=== PATIENT | female | born 1965 | race Caucasian/White ===

== ENCOUNTER 2017-11-11 14:56 | Emergency (ER) | payer MEDICAID, SELFPAY ==
[2017-11-11 14:58] VITALS: BP 137/85; PULSE 77; RESP 18; TEMP 36.4; O2SAT 99; BMI 27.4
--- NOTE | 2017-11-11 16:43 | RAD_ITS ---
STUDY: X-RAY - RIGHT RADIUS AND ULNA REASON FOR EXAM: Female, 52 years old. Pain. TECHNIQUE: 2 view(s) of the forearm. COMPARISON: None. FINDINGS: There is no demonstrated soft tissue swelling. Normal visualized radius. Normal visualized ulna. There is no demonstrated acute fracture. RAD/Forearm 2 Views IMPRESSION: Normal x-ray examination of the radius and ulna. Electronically Signed: Enoc Posada MD at 17:04 EST , Service support ,
--- NOTE | 2017-11-11 17:38 | ED.VISSUMM ---
- ER Visit Summary Date of Service: 11/11/17 Chief Complaint: Right forearm pain History of Present Illness: The patient is a 52 F who presents with right forearm pain for about a month. 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 She has noticed some aching pain in the anterior aspect of her mid right forearm which is worse with palpation or movement this does occasionally radiate down to the hand and she occasionally gets some numbness and tingling in her fingers as well. No specific fall or injury. Review of systems otherwise negative. Physical Examination: Afebrile vitals unremarkable Heart regular No respiratory distress Patient does have pain on palpation of the anterior mid left forearm she has normal radial and ulnar pulses brisk capillary refill normal sensation active full range of motion normal opposition of the digits normal sensation in the radial ulnar and median nerve distributions Test Results: Forearm x-ray is normal Emergency Department Course and Treatment: Straight examination are consistent with a forearm strain. She was given a prescription for naproxen. She was instructed on supportive care. She understands to return for new or worsening symptoms. She is agreeable to plan was discharged. Treatment Plan: [] Disposition: Discharge Impression: Right forearm strain This note was generated with [employer] dictation software. It may contain incorrect words, spelling, and punctuation that were not noted in review of the chart prior to signing ED Disposition - Plan for ED Patient: Chief Complaint: Upper Extremity Injury Referrals: Care Physician,No Primary [Primary Care Provider] -
--- NOTE | 2017-11-11 17:42 | ED.DCSUM_ITS ---
- ER Visit Summary Date of Service: 11/11/17 Chief Complaint: Right forearm pain History of Present Illness: The patient is a 52 F who presents with right forearm pain for about a month. 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 She has noticed some aching pain in the anterior aspect of her mid right forearm which is worse with palpation or movement this does occasionally radiate down to the hand and she occasionally gets some numbness and tingling in her fingers as well. No specific fall or injury. Review of systems otherwise negative. Physical Examination: Afebrile vitals unremarkable Heart regular No respiratory distress Patient does have pain on palpation of the anterior mid left forearm she has normal radial and ulnar pulses brisk capillary refill normal sensation active full range of motion normal opposition of the digits normal sensation in the radial ulnar and median nerve distributions Test Results: Forearm x-ray is normal Emergency Department Course and Treatment: Straight examination are consistent with a forearm strain. She was given a prescription for naproxen. She was instructed on supportive care. She understands to return for new or worsening symptoms. She is agreeable to plan was discharged. Treatment Plan: [] Disposition: Discharge Impression: Right forearm strain This note was generated with [employer] dictation software. It may contain incorrect words, spelling, and punctuation that were not noted in review of the chart prior to signing ED Disposition - Plan for ED Patient: Chief Complaint: Upper Extremity Injury Referrals: Care Physician,No Primary [Primary Care Provider] -
--- NOTE | 2017-11-11 17:42 | ED.DEP ---
ED Disposition - Plan for ED Patient: Chief Complaint: Upper Extremity Injury Instructions: ED Strain Muscle Ext Prescriptions: Naproxen [Naprosyn] 500 mg PO BID #20 tab Referrals: Care Physician,No Primary [Primary Care Provider] -
[2017-11-11 17:55] VITALS: PULSE 69; RESP 18; O2SAT 96
== END 2017-11-11 17:55 | disposition home or self-care (01) ==
PROVIDERS: Emergency Provider Emergency Medicine
DX: S56.911A Strain of unspecified muscles, fascia and tendons at forearm level, right arm, initial encounter (principal); Z72.0 Tobacco use; X58.XXXA Exposure to other specified factors, initial encounter; Y93.89 Activity, other specified; Y92.89 Other specified places as the place of occurrence of the external cause; Y99.8 Other external cause status
CPT/HCPCS: 73090; 99282

== ENCOUNTER 2017-12-19 10:32 | Emergency (ER) | payer MEDICAID, SELFPAY ==
[2017-12-19 10:34] VITALS: BP 139/51; PULSE 84; RESP 17; TEMP 36.7; O2SAT 97; BMI 30.7
--- NOTE | 2017-12-19 11:25 | CT_ITS ---
STUDY: CT RIGHT UPPER EXTREMITY WITH CONTRAST REASON FOR EXAM: Right arm pain and swelling for one month, question abscess. TECHNIQUE: The patient was scanned in a multi detector CT scanner. High resolution transaxial imaging was performed during intravenous administration of 100 mL of Isovue-300. Sagittal and coronal images were reconstructed. Individualized dose optimization techniques were used for this CT. COMPARISON: Radiographs 11/11/2017. FINDINGS: Normal glenohumeral articulation. Normal glenoid rim, neck and visualized scapula. Normal humeral humerus. Normal visualized lateral clavicle. Normal visualized acromioclavicular articulation. Normal radio-capitellum and ulnotrochlear articulations. Normal radius and ulna. Normal visualized muscles and soft tissue structures. There is no demonstrated focal fluid collection to indicate soft tissue abscess. There is no abnormal contrast enhancement. CT/Extremity Upper WITH Contrast IMPRESSION: Unremarkable CT of the right upper extremity without demonstrated soft tissue abscess. Electronically Signed: Michael Harris MD at 13:30 EDT Tel , Service support ,
[2017-12-19 11:53] LABS: Absolute Lymphocyte Count 1.77 X10^3/ul (0.83-4.51); Absolute Neutrophil Count 5.2 X10^3/uL (2.0-7.7); Basophil# 0.02 X10^3/uL; Basophil% 0.3 % (0-1); Eosinophil# 0.04 X10^3/uL; Eosinophils% 0.5 % (0-5); Lymphocyte # 1.77 X10^3/ul (4.0); Lymphocyte % 23.2 % (19-41); Mean Corp Hgb Conc 33.3 g/gl (32-36); Mean Corpuscular Hgb 31.6 pg (27.0-32.0); Mean Corpuscular Volume 94.8 fL (81-99); Mean Platelet Vol. 8.5 fl (6.2-12.0); Monocyte# 0.62 X10^3/uL; Monocyte% 8.1 % (0-10); Neutrophil # 5.17 X10^3/uL (2.7-7.7); Neutrophil % 67.8 % (47-70); Platelet Count 292 K/mm3 (150-450); RBC Distribution Width CV 13.5 % (11.6-14.6); RBC Distribution Width SD 45.1 fl (35.1-43.9); Red Blood Count 4.43 M/mm3 (4.2-5.4); White Blood Count 7.6 K/mm3 (4.4-11.0)
[2017-12-19 11:57] LABS: POSITIVE COUNT NO; POSITIVE DIFFERENTIAL NO; POSITIVE MORPHOLOGY NO
[2017-12-19 12:03] LABS: Anion Gap 6 (5-15); BUN 10 mg/dL (7-18); BUN/Creat Ratio 13.7 RATIO (10-20); Calcium,Total 9.2 mg/dL (8.5-10.1); Chloride 102 mmol/L (98-107); Creatinine, Serum 0.73 mg/dL (0.55-1.02); EST Glomerular Filtration Rate 89 mL/min (>60); Est Glom Filt Rate - Afr Amer 107 mL/min (>60); Estimated Creatinine Clearance 77.85 ml/min; Glucose 99 mg/dL (74-106); Potassium 3.9 mmol/L (3.5-5.1); Sodium Level 139 mmol/L (136-145)
--- NOTE | 2017-12-19 14:05 | ED.DCSUM_ITS ---
- ER Visit Summary Date of Service: 12/19/17 Chief Complaint: Right elbow pain History of Present Illness: The patient is a 52 F days for the past month she has had pain in her right forearm. She notes that there feels some swelling in the medial aspect of the anterior right elbow. She has not followed up with anybody. 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 Eyes any IV drug use. Physical Examination: Afebrile vital signs are stable Gen: Well-nourished well-developed Head: Normocephalic atraumatic Eyes: Perrl EOMI ENT: TMs clear no rhinorrhea moist mucous membranes Neck: Supple no lymphadenopathy no JVD nontender CVS: Regular rate rhythm no murmurs normal S1-S2 Respiratory: No distress clear to auscultation bilaterally chest nontender Abdomen: Soft nontender nondistended normal bowel sounds no masses Back: Nontender Extremity: There is tenderness to palpation over the medial aspect of the anterior right forearm. There appears to be a fullness. There is no over line erythema. No fluctuance. No breaks in the skin. There is no lymphangitis. Skin: Normal color no rash Neuro: alert orientated ?3 CN II-XII intact normal strength sensation reflexes gait cerebellar Psych: Normal affect normal mood Test Results: CT did not demonstrate any focal abscess or fluid collection. Emergency Department Course and Treatment: We will treat this as a tendinitis. She will follow-up if not improving. Impression: 1. Right elbow tendinitis This note was generated with [employer] dictation software. It may contain incorrect words, spelling, and punctuation that were not noted in review of the chart prior to signing ED Disposition - Plan for ED Patient: Disposition: Home or Assisted Living Chief Complaint: Upper Extremity Injury Instructions: ED Epicondylitis Lateral Elbow Prescriptions: Ibuprofen [Motrin] 800 mg PO TID PRN PRN #20 tab PRN Reason: Pain Referrals: Care Physician,No Primary [Primary Care Provider] - Gurmeet Bartlett DO [STAFF PHYSICIAN] - (Call to arrange follow-up.) Additional Instructions: Although your instructions are for lateral epicondylitis I believe you have more of a medial epicondylitis. Unfortunately I do not have specific instructions for that but is essentially treated the same.
[2017-12-19 14:36] VITALS: BP 131/96; PULSE 63; RESP 17; RESP 18; O2SAT 97
== END 2017-12-19 14:38 | disposition home or self-care (01) ==
PROVIDERS: Emergency Provider Emergency Medicine
DX: M77.9 Enthesopathy, unspecified (principal); Z72.0 Tobacco use
CPT/HCPCS: 73201; 80048; 85025; 99283; Q9967; A4216

== ENCOUNTER → 2018-01-20 06:20 | Outpatient (CLI) | payer MEDICAID, SELFPAY ==
--- NOTE | 2018-01-20 07:00 | MRI_ITS ---
STUDY: MRI RIGHT ELBOW WITHOUT AND WITH CONTRAST REASON FOR EXAM: Female, 52 years old. Pain and swelling of the proximal forearm. TECHNIQUE: Standardized fat and water weighted pulse sequences were obtained in all 3 orthogonal planes prior to and following intravenous administration of 8 mL Gadavist. COMPARISON: CT December 19, 2017. FINDINGS: Normal radio-capitellum articulation. Normal radial collateral ligamentous complex. There is tendinosis with tendon thickening of the common extensor tendon. Normal ulnotrochlear articulation. Normal ulnar collateral ligamentous complex. Normal common flexor tendon. There is small joint effusion. The cubital tunnel is normal, with a normal ulnar nerve. There is tendinosis with thickening of the distal biceps tendon, but without a demonstrated tendon tear, series 6 images 12/24 and 13/24. There is adjacent edema and enhancement, series 10 images 18/36 through 24/36. There are 1.2 and 1.1 cm nonenhancing fluid signal intensity regions consistent with component of ganglion, series 6 image 9/24 and series 7 image 16/30. There is marrow edema with T2 signal hyperintensity and enhancement of the radial tuberosity, series 6 image 14/24. Normal lacertus fibrosis. Normal brachialis musculotendinous insertion. Normal triceps tendon and teno-osseous insertion. Normal olecranon process. The visualized distal humerus, proximal radius, and ulna are normal. The visualized muscles of the distal arm and proximal forearm are normal. There is no dominant mass to correspond to the area of palpable abnormality as noted by the patient on the radial aspect of the proximal forearm. MRI/Upper Ext Joint Only W/WO Cont IMPRESSION: Biceps tendinosis. There is adjacent soft tissue swelling with ganglion cyst. Stress injury of the radial tuberosity. Electronically Signed: David Dukes MD at 8:50 EDT , Service support ,
== END ==
PROVIDERS: Visit Provider Orthopaedic Surgery
DX: R22.31 Localized swelling, mass and lump, right upper limb (principal)
CPT/HCPCS: 73223; A9585

== ENCOUNTER 2018-02-08 08:00 | Outpatient (RCR) | payer MEDICAID, SELFPAY ==
--- NOTE | 2018-01-30 10:38 | HP.OTEVAL ---
Patient's Visit Information JOS READ is a 52 year old F, referred to Occupational Therapy by Gurmeet Bartlett DO, with a diagnosis of right forearm swelling. Date of Evaluation: 01/30/18 Occupational Therapist: Mary Almazan, OTDionne/Eddie, CHT - Subjective Subjective: This 52 year old female was seen for a inital OT eval with dx of right forearm swelling- tendonities of flexors- pt states she has had pain in her right forearm for 4 months at least. Pt states nothing makes her arm feel better and if moved in the wrong way the movement makes pt sick to her stomach. Pt works at [employer] and works 40 hours a week and with need to lift 35-40#. pt is left handed. pt states the pain meds do not help- pt states she does ice her forearm once a day. - Pain right 7 Pain Intensity Range: 5, 9 - ROM Elbow: right -50/110 left 0/145 Forearm: right sup 35 pronation 45 left supination 75 pronation 75 Wrist: right 45/15 left WNL CMC: Right/left WNL - Strength Professor Of Violin: Right 5# left 65# Lateral Pinch: right 2# left 10# Tripod Pinch: right unable left 10# - DASH-Disabilities of Arm, Shoulder& Hand DASH Sum: 115 - Goals Goal:: pt will demo a increase in right senior business broker strength to 40# or greater to increase pts ind. with BADLs and IADLs by D/C. pt will demo a increase in lateral/tripod pinch strength by 4# to increase pts ind. with BADLs and IADLS by D/C Goal:: PT will demo a increase in right elbow flex/ext equal to left to increase pts ind. with ADLs and IADLS by d/c. pt will demo a increase in right forearm SUP/PRonation to WNL to increase pts ind. with IADL tasks as turing a singletary by d/c Goal:: pt will report pain no greater than 2/10 with performance of BADLS and IADLs by d/c - Rehabilitation General Assessment: Pt demo with limited right forearm ROM, limited right elbow ROM and pain pain. pt demo with touch tender throughout the right volar forearm. pts symptoms are consistent with biceps/ flexor tendonitis-PT would benefit from further skilled OTR/L, CHT services 2x week for 6 weeks to decrease pts pain and increase pts ROM and progress to PRE to return pt to PLOF. If pt does not improve after 4 weeks pt will reurn to for further assesment. Rehabilitation Potential: Good - Anticipated Interventions Anticipated Interventions: A/AAROM/PROM, Strengthening, Edema Control, Triggerpoint Release, Desensitization, Modalities, Orthoses, Ergonomic Education - Visit Plan Frequency: 2x /Week Duration: 6 Weeks General Plan: 2x week for 6 weeks Therapy will initiate Modalities as US, Ice and work into ROM- and PRE- pt was instructed in ICe for 15 min 3x a day- pt given instructions on getting a arm sleeve to wear during the day. Ice 3 x a day- pt will be instructed in work ergo to adj. her occupations to limit flexor stress. TEXT: Thank you for the opportunity to evaluate your patient. For Medicare and Medicare HMO plans, please review the plan of care and approve it. It will need to be FAXED BACK to us at [phone] for Medicare purposes. Please let me know if there are questions or concerns regarding this plan of care. Physician Signature: Date:
--- NOTE | 2018-03-07 13:02 | HP.OT.NRP ---
HP - Discharge Summary - Patient Information JOS READ was seen in my office for initial evaluation on 01/30/18. The following Plan of Care was established for this patient: Initial Frequency: 2x /Week Initial Duration: 6 Weeks Plan: cont heat and ice , stretching as tolerated - Anticipated Interventions Anticipated Interventions: A/AAROM/PROM, Strengthening, Edema Control, Triggerpoint Release, Desensitization, Modalities, Orthoses, Ergonomic Education This patient was last seen in our office 12/29/17. Pertinent comments regarding their Occupational therapy will appear below: pt was seen for 4 visits- therapy attempted use of modalities to decrease pts pain- pt was painful with light stretch and palpation of volar and dorsal sides of right forearm- pt was to return to for further testing- pt has not returned at this time and is now D/C At this point I will be discontinuing this patient from occupational therapy. I would be happy to see this patient again in the future if found appropriate by the physician. Thank you! Mary Almazan, OTR/L, CHT
== END 2018-02-08 19:00 | disposition home or self-care (01) ==
LOC: OT 08:00
PROVIDERS: Visit Provider Orthopaedic Surgery
DX: M79.89 Other specified soft tissue disorders (principal); M65.831 Other synovitis and tenosynovitis, right forearm
CPT/HCPCS: 97035; 97110; 97166; 97760

== ENCOUNTER 2018-03-02 14:49 | Emergency (ER) | payer MEDICAID, SELFPAY ==
--- NOTE | 2018-03-02 14:49 | DT_ITS ---
This patient was seen during an EMR downtime February 27, 2018 - March 06, 2018. This patient may have a combination of paper and electronic documentation or all paper documentation. All documentation is viewable within the e-chart portion of [employer] for each patient visit.
--- NOTE | 2018-03-02 15:29 | CT_ITS ---
STUDY: CT ABDOMEN AND PELVIS WITHOUT CONTRAST REASON FOR EXAM: Female, 52 years old. Left flank pain. RADIATION DOSAGE (If Supplied By Facility): CTDIvol = ( 14.35 ) mGy, DLP = ( 682.57 ) mGycm TECHNIQUE: Transaxial images were obtained from the dome of the diaphragm to the symphysis pubis without oral contrast, and without intravenous contrast. Sagittal and coronal images were reconstructed. Individualized dose optimization techniques were used for this CT. COMPARISON: None. FINDINGS: The visualized lung bases are unremarkable. The visualized portions of the heart are within normal limits. Hepatomegaly. Normal gallbladder and extrahepatic biliary system. Normal spleen. Normal pancreas. Normal bilateral adrenal glands. Normal right kidney. Normal left kidney. Normal visualized stomach. Normal small intestine. Normal colon. The appendix is visualized and appears normal. Normal abdominal aorta. Normal inferior vena cava. Normal retroperitoneum. Normal urinary bladder. Normal abdominal wall. There are diffuse degenerative changes of the visualized lumbar spine. CT/Abdomen/Pelvis without Cont IMPRESSION: No evidence of acute intestinal pathology or acute obstructive uropathy. Hepatomegaly. Electronically Signed: Romeo Michael MD at 6:49 EDT Tel , Service support ,
[2018-03-04 12:15] LABS: Bacteria 0 SEEN /hpf (None Seen); Color, Urine Yellow (Yellow); Glucose, Dipstick NEGATIVE (Normal); Mucous, Urine 0 SEEN /hpf (<or=2+); Urine Bilirubin Dipstick Negative (Negative); Urine Clarity Sl Cldy (Clear); White Blood Cells 0 SEEN /hpf (0-5)
[2018-03-04 12:16] LABS: Ketone-Dipstick Negative (Negative); Leukocyte Esterase-Dipstick Negative /ul (Negative); Nitrite-Dipstick Negative (Negative); Occult Blood-Urine 10 /ul (Negative); Protein-Dipstick Negative (Negative); Red Blood Cells-Urine 0-5 SEEN /hpf (0-5); Squamous Epithelial Cells - UA 10-25 SEEN /hpf (5-10); Urine Urobilinogen Normal (Normal)
[2018-03-05 13:56] LABS: Basophil% 0.1 % (0-1); Eosinophils% 0.6 % (0-5); Hematocrit 40.3 % (37-47); Hemoglobin 13.5 g/dl (12.0-15.0); Lymphocyte % 22.3 % (19-41); Mean Corp Hgb Conc 33.5 g/gl (32-36); Mean Corpuscular Hgb 32.1 pg (27.0-32.0); Mean Corpuscular Volume 95.7 fL (81-99); Mean Platelet Vol. 8.8 fl (6.2-12.0); Monocyte% 4.1 % (0-10); Neutrophil % 72.8 % (47-70); POSITIVE COUNT NO; POSITIVE DIFFERENTIAL NO; POSITIVE MORPHOLOGY NO; Platelet Count 251 K/mm3 (150-450); RBC Distribution Width CV 12.6 % (11.6-14.6); RBC Distribution Width SD 43.5 fl (35.1-43.9); Red Blood Count 4.21 M/mm3 (4.2-5.4); White Blood Count 8.1 K/mm3 (4.4-11.0)
[2018-03-05 13:57] LABS: Absolute Neutrophil Count 5.9 X10^3/uL (2.0-7.7); Basophil# 0.01 X10^3/uL; Eosinophil# 0.05 X10^3/uL; Monocyte# 0.33 X10^3/uL; Neutrophil # 5.87 X10^3/uL (2.7-7.7)
[2018-03-05 16:30] LABS: Anion Gap 5 (5-15); BUN 11 mg/dL (7-18); BUN/Creat Ratio 16.2 RATIO (10-20); Chloride 108 mmol/L (98-107); Creatinine, Serum 0.68 mg/dL (0.55-1.02); EST Glomerular Filtration Rate 97 mL/min (>60); Est Glom Filt Rate - Afr Amer 118 mL/min (>60); Glucose 102 mg/dL (74-106); Potassium 4.1 mmol/L (3.5-5.1); Sodium Level 143 mmol/L (136-145)
== END 2018-03-02 16:43 | disposition home or self-care (01) ==
PROVIDERS: Emergency Provider Emergency Medicine
DX: R10.9 Unspecified abdominal pain (principal); Z87.442 Personal history of urinary calculi
CPT/HCPCS: 74176; 80048; 81001; 85025; 96361; 96374; 96375; 99283; J7030; A4216; J2405

== ENCOUNTER 2018-03-30 06:35 | Emergency (ER) | payer MEDICAID, SELFPAY ==
[2018-03-30 06:35] VITALS: BP 146/80; PULSE 89; RESP 18; TEMP 36.4; O2SAT 97; BMI 29.2
--- NOTE | 2018-03-30 07:02 | NURSING ---
NO LW OR POA
--- NOTE | 2018-03-30 08:30 | ED.VISSUMM ---
- ER Visit Summary Date of Service: 03/30/18 Chief Complaint: Bilateral forearm pain History of Present Illness: The patient is a 52 F who I saw back in November of this year. I diagnosed her with right forearm tendinitis. She followed up with orthopedic surgery and did occupational therapy as well as had an MRI which demonstrates bicipital tendinitis and a ganglion cyst. She states she was no better and orthopedics (Dr. Bartlett) referred her to [facility]. She states that every time she called the [facility] she did not get anybody therefore she has not made an appointment. 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 Patient states now the left forearm is hurting her. She filled the prescription for tramadol on 03/23. She was taking ibuprofen. No known renal disorders. Physical Examination: Afebrile vital signs are stable Gen: Well-nourished well-developed Head: Normocephalic atraumatic Eyes: Perrl EOMI ENT: TMs clear no rhinorrhea moist mucous membranes Neck: Supple no lymphadenopathy no JVD nontender CVS: Regular rate rhythm no murmurs normal S1-S2 Respiratory: No distress clear to auscultation bilaterally chest nontender Abdomen: Soft nontender nondistended normal bowel sounds no masses Back: Nontender Extremity: Bilateral anterior forearm tenderness to palpation. There is some palpable swelling right proximal forearm consistent with her ganglion cyst. Skin: Normal color no rash Neuro: alert orientated ?3 CN II-XII intact normal strength sensation reflexes gait cerebellar Psych: Normal affect normal mood Test Results: None indicated in the emergency setting Emergency Department Course and Treatment: This is a chronic problem. This is not appearing to be any type of emergent situation. I will write for the patient to have some Celebrex. The patient can continue her tramadol. Patient is encouraged to call the [facility] and schedule an appointment during the regular business hours. Impression: 1. Bilateral forearm tendinitis This note was generated with [employer] dictation software. It may contain incorrect words, spelling, and punctuation that were not noted in review of the chart prior to signing ED Disposition - Plan for ED Patient: Disposition: Home or Assisted Living Chief Complaint: Upper Extremity Injury Instructions: ED Cyst Ganglion Prescriptions: Celecoxib [Celebrex] 200 mg PO DAILY #14 cap Additional Instructions: Please call [facility] to arrange your follow-up.
--- NOTE | 2018-03-30 08:34 | ED.DCSUM_ITS ---
- ER Visit Summary Date of Service: 03/30/18 Chief Complaint: Bilateral forearm pain History of Present Illness: The patient is a 52 F who I saw back in November of this year. I diagnosed her with right forearm tendinitis. She followed up with orthopedic surgery and did occupational therapy as well as had an MRI which demonstrates bicipital tendinitis and a ganglion cyst. She states she was no better and orthopedics (Dr. Bartlett) referred her to [facility]. She states that every time she called the [facility] she did not get anybody therefore she has not made an appointment. 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 Patient states now the left forearm is hurting her. She filled the prescription for tramadol on 03/23. She was taking ibuprofen. No known renal disorders. Physical Examination: Afebrile vital signs are stable Gen: Well-nourished well-developed Head: Normocephalic atraumatic Eyes: Perrl EOMI ENT: TMs clear no rhinorrhea moist mucous membranes Neck: Supple no lymphadenopathy no JVD nontender CVS: Regular rate rhythm no murmurs normal S1-S2 Respiratory: No distress clear to auscultation bilaterally chest nontender Abdomen: Soft nontender nondistended normal bowel sounds no masses Back: Nontender Extremity: Bilateral anterior forearm tenderness to palpation. There is some palpable swelling right proximal forearm consistent with her ganglion cyst. Skin: Normal color no rash Neuro: alert orientated ?3 CN II-XII intact normal strength sensation reflexes gait cerebellar Psych: Normal affect normal mood Test Results: None indicated in the emergency setting Emergency Department Course and Treatment: This is a chronic problem. This is not appearing to be any type of emergent situation. I will write for the patient to have some Celebrex. The patient can continue her tramadol. Patient is encouraged to call the [facility] and schedule an appointment during the regular business hours. Impression: 1. Bilateral forearm tendinitis This note was generated with [employer] dictation software. It may contain incorrect words, spelling, and punctuation that were not noted in review of the chart prior to signing ED Disposition - Plan for ED Patient: Disposition: Home or Assisted Living Chief Complaint: Upper Extremity Injury Instructions: ED Cyst Ganglion Prescriptions: Celecoxib [Celebrex] 200 mg PO DAILY #14 cap Additional Instructions: Please call [facility] to arrange your follow-up.
[2018-03-30 08:42] VITALS: BP 125/77; PULSE 62; RESP 15; O2SAT 98
== END 2018-03-30 08:43 | disposition home or self-care (01) ==
PROVIDERS: Emergency Provider Emergency Medicine
DX: M77.9 Enthesopathy, unspecified (principal); Z79.891 Long term (current) use of opiate analgesic
CPT/HCPCS: 99282

== ENCOUNTER 2018-09-04 19:04 | Emergency (ER) | payer MEDICAID, SELFPAY ==
[2018-09-04 19:05] VITALS: BP 125/75; PULSE 89; RESP 17; TEMP 37.4; O2SAT 94; BMI 27.4
--- NOTE | 2018-09-04 19:48 | EKG12_ITS ---
Test Reason : RF Blood Pressure : / mmHG Vent. Rate : 081 BPM Atrial Rate : 081 BPM P-R Int : 128 ms QRS Dur : 098 ms QT Int : 358 ms P-R-T Axes : 029 020 030 degrees QTc Int : 415 ms Normal sinus rhythm Normal ECG Confirmed by KATHYA VILLEDA MD ([id number]), newspaper or periodical editor JOVANNY CHAMBERLAIN ([id number]) on 09/08/2018 10:46:01 AM Referred By: YUE Confirmed By:KATHYA VILLEDA MD
[2018-09-04 19:51] VITALS: O2SAT 96
[2018-09-04] MEDS: Ipratropium/Albuterol Sulfate 3 ML AMPUL.NEB INHALATION (19:57)
[2018-09-04 20:05] VITALS: PULSE 83; RESP 18
--- NOTE | 2018-09-04 20:05 | CPS ---
pt states nauseated-aero tx stopped
[2018-09-04] MEDS: 0.9% Normal Saline 1,000 ML 150 ML IV (20:08)
[2018-09-04 20:21] LABS: Absolute Lymphocyte Count 1.09 X10^3/ul (0.83-4.51); Absolute Neutrophil Count 3.4 X10^3/uL (2.0-7.7); Basophil# 0.01 X10^3/uL; Basophil% 0.2 % (0-1); Hematocrit 39.5 % (37-47); Hemoglobin 13.1 g/dl (12.0-15.0); Lymphocyte # 1.09 X10^3/ul (4.0); Lymphocyte % 21.8 % (19-41); Mean Corp Hgb Conc 33.2 g/gl (32-36); Mean Corpuscular Hgb 31.3 pg (27.0-32.0); Mean Corpuscular Volume 94.5 fL (81-99); Mean Platelet Vol. 8.5 fl (6.2-12.0); Monocyte# 0.46 X10^3/uL; Monocyte% 9.2 % (0-10); Neutrophil # 3.44 X10^3/uL (2.7-7.7); Neutrophil % 68.6 % (47-70); Platelet Count 167 K/mm3 (150-450); RBC Distribution Width CV 13.6 % (11.6-14.6); RBC Distribution Width SD 46.7 fl (35.1-43.9); Red Blood Count 4.18 M/mm3 (4.2-5.4)
[2018-09-04 20:22] LABS: POSITIVE COUNT NO; POSITIVE DIFFERENTIAL NO; POSITIVE MORPHOLOGY NO
--- NOTE | 2018-09-04 20:25 | RAD_ITS ---
STUDY: X-RAY CHEST REASON FOR EXAM: Female, 53 years old. Cold symptoms. TECHNIQUE: PA and lateral views of the chest. COMPARISON: June 11, 2014 FINDINGS: There are monitoring devices. Lungs are clear and expanded. There is no demonstrated pleural abnormality. Normal size heart. Normal mediastinum and maile. Normal visualized pulmonary arteries. Normal visualized aortic arch and descending thoracic aorta. There are diffuse degenerative changes of the visualized thoracic spine. Normal visualized ribs, clavicles, and shoulders. There is no demonstrated abnormality of the visualized soft tissue structures of the upper abdomen. RAD/Chest PA and Lateral IMPRESSION: Degenerative changes, as described above. No demonstrated acute cardiopulmonary process. Electronically Signed: David Dukes MD at 21:34 EST , Service support ,
[2018-09-04] MEDS: Ondansetron 4 MG/2 ML Vial IV (20:30)
[2018-09-04 20:35] LABS: Anion Gap 8 (5-15); BUN 11 mg/dL (7-18); BUN/Creat Ratio 14.3 RATIO (10-20); Calcium,Total 8.5 mg/dL (8.5-10.1); Chloride 103 mmol/L (98-107); Creatinine, Serum 0.77 mg/dL (0.55-1.02); EST Glomerular Filtration Rate 84 mL/min (>60); Est Glom Filt Rate - Afr Amer 101 mL/min (>60); Estimated Creatinine Clearance 72.96 ml/min; Glucose 118 mg/dL (74-106); Potassium 3.3 mmol/L (3.5-5.1); Sodium Level 136 mmol/L (136-145)
--- NOTE | 2018-09-04 20:38 | ED.DCSUM_ITS ---
- ER Visit Summary Date of Service: 09/04/18 Chief Complaint: [] Use body aches harsh cough mild sore throat History of Present Illness: The patient is a 53 F [] symptoms suddenly consisting primarily of diffuse body aches harsh cough symptoms persist and she came in today does smoke does not have history of COPD NM PE or pneumonia no other complaints bowel bladder habits unremarkable Physical Examination: [] 125/75, 99.6 General, no distress resting comfortably HEENT is generally unremarkable The neck is supple no adenopathy Cardiovascular, regular rate and rhythm Lungs, clear bilateral Abdomen, soft nontender Extremities, no clubbing cyanosis or edema Neurologic, awake alert answering questions appropriately moving all 4 extremities She is in no distress moving all 4 extremities she complains of just diffuse body aches clinically she appears to have URI viral illness possible flu Flu swab returned positive See IV fluids screening labs chest x-ray aerosols Studies are all generally unremarkable see those reports she has received IV fluids feeling better explained her the counts with influenza A we discussed the concept of Tamiflu and the risk profile to that she is deferred that at this time she started on Naprosyn inhalers and she will follow-up with her family doctors next few days Test Results: [] Emergency Department Course and Treatment: [] Treatment Plan: [] Disposition: [] Home stable Impression: [] Influenza A This note was generated with [employer] dictation software. It may contain incorrect words, spelling, and punctuation that were not noted in review of the chart prior to signing ED Disposition - Plan for ED Patient: Chief Complaint: Cold Sx Referrals: Care Physician,No Primary [Primary Care Provider] -
--- NOTE | 2018-09-04 20:43 | ED.RN ---
LAB CALLS WITH CRITICAL RESULT, PATIENT POSITIVE FOR FLU A, DR. MITCHELL MADE AWARE.
[2018-09-04 20:53] LABS: BNP,B-Type NATRIURETIC PEPTIDE 21.2 pg/mL (0-100)
--- NOTE | 2018-09-04 21:29 | ED.DEP ---
ED Disposition - Plan for ED Patient: Chief Complaint: Cold Sx Instructions: ED Flu Prescriptions: Albuterol Inhaler [Ventolin Hfa] 1 - 2 puff INHALATION Q4H PRN PRN #1 inhaler PRN Reason: Wheezing Referrals: Care Physician,No Primary [Primary Care Provider] - Tg Moreno [NON-STAFF] -
[2018-09-04 22:26] VITALS: BP 150/86; PULSE 91; RESP 17; O2SAT 95
--- OUTSIDE RECORDS SUMMARY | 2018-10-22 03:13 | XMS RPT_ITS ---
:1965 Author Organization OHIP Support Name Relationship Address Phone SIDDHARTH MCCALL Unavailable [address] + [place] [address] SPEWY Unavailable [address] + [place] [address] GOWINS, SIDDHARTH Unavailable [address] + [place] [address] SPEWY Unavailable [address] + [place] [address] GOWINS, SIDDHARTH Unavailable [address] + [place] [address] UE Unavailable Unavailable Unavailable GOWINS, SIDDHARTH Unavailable [address] + [place] [address] SPEWY Unavailable [address] + [place] [address] GOWINS, SIDDHARTH Unavailable [address] + [place] [address] SPEWY Unavailable [address] + [place] [address] GOWINS, SIDDHARTH Unavailable [address] + [place] [address] SPEWY Unavailable [address] + [place] [address] GOWINS, SIDDHARTH Unavailable [address] + [place] [address] SPEWY Unavailable [address] + [place] [address] GOWINS, SIDDHARTH Unavailable [address] + [address] [place] [address] SPEWY Unavailable [address] + [place] [address] GOWINS, SIDDHARTH Unavailable [address] + [address] [place] [address] SPEWY Unavailable [address] + [place] [address] GOWINS, SIDDHARTH Unavailable [address] + [address] [place] [address] SPEWY Unavailable [address] [facility] + [place] [address] Care Team Providers Name Role Phone TRINITYREJISHELIAHY (ASSOCIATE TEAM PHYSICIAN) Referring Unavailable SUGAR HERNANDEZ Attending Unavailable Primay Care Physicia, No Primary Care Unavailable Kelly Zhu Attending Unavailable Gurmeet Bartlett Attending Unavailable Primay Care Physicia, No Referring Unavailable Primay Care Physicia, No Primary Care Unavailable Primay Care Physicia, No Primary Care Unavailable Harshad Mcgowan Attending Unavailable ParamayyeKelly hammond Attending Unavailable Kelly Zhu Referring Unavailable Primay Care Physicia, No Primary Care Unavailable Gurmeet Bartlett Attending Unavailable Primay Care Physicia, No Referring Unavailable Primay Care Physicia, No Primary Care Unavailable Gurmeet Bartlett Attending Unavailable Gurmeet Bartlett Referring Unavailable Primay Care Physicia, No Primary Care Unavailable Primay Care Physicia, No Primary Care Unavailable Harshad Mcgowan Attending Unavailable Primay Care Physicia, No Primary Care Unavailable Indra Card Attending Unavailable Gurmeet Bartlett Attending Unavailable Gurmeet Bartlett Referring Unavailable Primay Care Physicia, No Primary Care Unavailable Gurmeet Bartlett Attending Unavailable Primay Care Physicia, No Referring Unavailable Primay Care Physicia, No Primary Care Unavailable PROBLEMS PROBLEMS DATE TYPE CONDITION / CODE ATTENDING STATUS SOURCE 09/12/2018 Active Cough / NA Active [facility] R05(ICD-10) Main [place] Repository 03/24/2018 Unknown R10.9 - Rd Zhu Unspecified [facility] abdominal [facility] R10.9(ICD-10) Repository 03/16/2018 Unknown M79.89 - Other Gurmeet Bartlett Active [facility] specified soft [facility] tissue disorders [facility] / M79.89(ICD-10) Repository 01/20/2018 Unknown R22.31 - Gurmeet Bartlett Active [facility] swelling, mass Hospital and lump, right Repository upper limb / R22.31(ICD-10) PROCEDURES PROCEDURES No Procedure Records FoundRESULTS RESULTS PROGRESS Observed: 10/06/2018 Status: COMPLETED Source: [place] 10:46 AM [facility] [place] REPOSITORY HNO ID: [id number] Author: Sugar Hernandez Service: (none) Author Type: Physician Type: Progress Notes Filed: 10/06/2018 5:23 PM Note Text: Reason for Visit Patient presents with: Established Patient: establish care Jos Mccall is a 53 year old female who presents here today for Above Complaints.. Health Maintenance DTAP,TDAP,TD(1 - Tdap) ONE PNEUMOVAX PRIOR TO AGE 65 PAP EVERY 5 YEARS HPV EVERY 5 YEARS MAMMOGRAM HEPATITIS C SCREENING LIPID SCREEN DIABETES SCREEN COLORECTAL CANCER SCREENING,SEE MODIFIER INFLUENZA(1) HPI Initially patient was concerned about bp but it is good. She is careful with her salt, because her bp was high. Today she notes she could be depressed, she has been feeling low and sad, things have not been the way it should be. Financial issues, Loss of job from surgery of the hand. She is living with her son and that is very hard for her, it has been very tough for her not to have her own place.... Etc. Her appetite is decreased, she is not sleeping too much, her brain constantly goes on. Denies having racing thoughts, no pressured speaking.. She denies having too much energy where she cannot do anything for it. She smokes around half a pack a day of cigs, has always done this. She is ok to take a pneumonia shot today. No problem-specific Assessment AND Plan notes found for this encounter. PAST MEDICAL HISTORY Diagnosis Date - Depression - Heart murmur PAST SURGICAL HISTORY Procedure Laterality Date - TUBAL LIGATION - UPPER ARM/ELBOW SURGERY UNLISTED FAMILY HISTORY Problem Relation Age of Onset - Heart Attack Father at age 60 - Cancer Brother throat - Stroke Maternal Grandmother Social History Substance Use Topics - Smoking status: Current Every Day Smoker - Smokeless tobacco: Never Used Comment: goes thru 2 pack in 4 days - Alcohol use No Comment: quit years ago Past medical history, appointments, medications, allergies reviewed. Pertinent Lab/Diagnostic Studies are reviewed and discussed today Current Outpatient Prescriptions: - Mhjzjrqycstddgt-Wwagdmokw-ZJ (BROMFED DM) 2-30-10 mg/5 mL syrup Review of Systems CONSTITUTIONAL: No fevers, chills night sweats, unintended weight loss CARDIOVASCULAR: No chest pain, dyspnea, palpitations, orthopnea, PND, ankle edema. PULM: No dyspnea, unexplained cough. GI: No dysphagia/odynophagia, problematic reflux, constipation, diarrhea, changes in stool habits, hematochezia, melena. : No new urinary complaints, including dysuria, gross hematuria or pyuria. NEURO: No new balance problems, peripheral weakness/paresthesias or numbness of concern. Physical Exam BP 118/60 (BP Site: Left Arm, BP Position: Sitting, BP Cuff Size: Regular Adult) Pulse 83 Resp 12 Ht 162.6 cm (5' 4) Wt 75.3 kg (166 lb) SpO2 96% BMI 28.49 kg/m? General appearance: Well appearing, alert, in no acute distress, well nourished. Skin: Skin color, texture, turgor normal, no suspicious rashes or lesions Head: Normocephalic, no masses, lesions, tenderness or abnormalities Eyes: Anicteric sclera. Pupils are equally round and reactive to light. Extraocular movements are intact. Lungs: Lungs clear to auscultation. No wheezing, rhonchi, rales Heart: RRR without murmur, gallop, or rubs. Extremities: No deformities, edema, skin discoloration, clubbing or cyanosis. Good capillary refill. ASSESSMENT/PLAN: 1. Moderate episode of recurrent major depressive disorder (HCC) - ICD9: 296.32, ICD10: F33.1 (primary diagnosis) zoloft to be started Discussed SSRI's in detail, their side effects including weight gain in some, sexual side effects, that it needs to build up in their system and usually in the 3rd week they will start feeling the effects. Also discussed that each SSRI may affect differently , might have to try a couple before finding out a perfect fit. - CBC + DIFF - COMP METABOLIC PANEL 2. Tobacco abuse disorder - ICD9: 305.1, ICD10: Z72.0 - Cessation encouraged. - Physiologic and physical aspects of tobacco addiction as well as strategies for quitting were discussed. - Counseling was given focusing on the harmful effects of this addiction especially given the patient's medical condition(s) which will be worsened because of the chemicals in tobacco. 3. Breast cancer screening by mammogram - ICD9: V76.12, ICD10: Z12.31 - Follow up for annual exam in one year. - ARMANDO SCREENING 4. Lipid screening - ICD9: V77.91, ICD10: Z13.220 - LIPID PANEL BASIC SUGAR HERNANDEZ MD CNOV Observed: 10/06/2018 Status: COMPLETED Source: [place] 10:00 AM [facility] REPOSITORY Office Visit ([facility]) JOS MCCALL ([id number]) 1965 F [facility] Date Time Provider Department 10/06/18 10:00 AM SUGAR HERNANDEZ [facility] During your visit today, we recorded the following information about you: Pulse Respiration Blood pressure Weight 83/minute 12/minute 118/60 75.3 kg Height 1.626 m SUGAR HERNANDEZ MD 10/06/2018 5:23 PM Signed Reason for Visit Patient presents with: Established Patient: [facility] care Jos Mccall is a 53 year old female who presents here today for Above Complaints.. Health Maintenance DTAP,TDAP,TD(1 - Tdap) ONE PNEUMOVAX PRIOR TO AGE 65 PAP EVERY 5 YEARS HPV EVERY 5 YEARS MAMMOGRAM HEPATITIS C SCREENING LIPID SCREEN DIABETES SCREEN COLORECTAL CANCER SCREENING,SEE MODIFIER INFLUENZA(1) HPI Initially patient was concerned about bp but it is good. She is careful with her salt, because her bp was high. Today she notes she could be depressed, she has been feeling low and sad, things have not been the way it should be. Financial issues, Loss of job from surgery of the hand. She is living with her son and that is very hard for her, it has been very tough for her not to have her own place.... Etc. Her appetite is decreased, she is not sleeping too much, her brain constantly goes on. Denies having racing thoughts, no pressured speaking.. She denies having too much energy where she cannot do anything for it. She smokes around half a pack a day of cigs, has always done this. She is ok to take a pneumonia shot today. No problem-specific Assessment AND Plan notes found for this encounter. PAST MEDICAL HISTORY Diagnosis Date - Depression - Heart murmur PAST SURGICAL HISTORY Procedure Laterality Date - TUBAL LIGATION - UPPER ARM/ELBOW SURGERY UNLISTED FAMILY HISTORY Problem Relation Age of Onset - Heart Attack Father at age 60 - Cancer Brother throat - Stroke Maternal Grandmother Social History Substance Use Topics - Smoking status: Current Every Day Smoker - Smokeless tobacco: Never Used Comment: goes thru 2 pack in 4 days - Alcohol use No Comment: quit years ago Past medical history, appointments, medications, allergies reviewed. Pertinent Lab/Diagnostic Studies are reviewed and discussed today Current Outpatient Prescriptions: - Vxmfyqivojjzvlt-Avljlaqjf-JS (BROMFED DM) 2-30-10 mg/5 mL syrup Review of Systems CONSTITUTIONAL: No fevers, chills night sweats, unintended weight loss CARDIOVASCULAR: No chest pain, dyspnea, palpitations, orthopnea, PND, ankle edema. PULM: No dyspnea, unexplained cough. GI: No dysphagia/odynophagia, problematic reflux, constipation, diarrhea, changes in stool habits, hematochezia, melena. : No new urinary complaints, including dysuria, gross hematuria or pyuria. NEURO: No new balance problems, peripheral weakness/paresthesias or numbness of concern. Physical Exam BP 118/60 (BP Site: Left Arm, BP Position: Sitting, BP Cuff Size: Regular Adult) Pulse 83 Resp 12 Ht 162.6 cm (5' 4) Wt 75.3 kg (166 lb) SpO2 96% BMI 28.49 kg/m? General appearance: Well appearing, alert, in no acute distress, well nourished. Skin: Skin color, texture, turgor normal, no suspicious rashes or lesions Head: Normocephalic, no masses, lesions, tenderness or abnormalities Eyes: Anicteric sclera. Pupils are equally round and reactive to light. Extraocular movements are intact. Lungs: Lungs clear to auscultation. No wheezing, rhonchi, rales Heart: RRR without murmur, gallop, or rubs. Extremities: No deformities, edema, skin discoloration, clubbing or cyanosis. Good capillary refill. ASSESSMENT/PLAN: 1. Moderate episode of recurrent major depressive disorder (HCC) - ICD9: 296.32, ICD10: F33.1 (primary diagnosis) zoloft to be started Discussed SSRI's in detail, their side effects including weight gain in some, sexual side effects, that it needs to build up in their system and usually in the 3rd week they will start feeling the effects. Also discussed that each SSRI may affect differently , might have to try a couple before finding out a perfect fit. - CBC + DIFF - COMP METABOLIC PANEL 2. Tobacco abuse disorder - ICD9: 305.1, ICD10: Z72.0 - Cessation encouraged. - Physiologic and physical aspects of tobacco addiction as well as strategies for quitting were discussed. - Counseling was given focusing on the harmful effects of this addiction especially given the patient's medical condition(s) which will be worsened because of the chemicals in tobacco. 3. Breast cancer screening by mammogram - ICD9: V76.12, ICD10: Z12.31 - Follow up for annual exam in one year. - ARMANDO SCREENING 4. Lipid screening - ICD9: V77.91, ICD10: Z13.220 - LIPID PANEL BASIC SUGAR HERNANDEZ MD Referring Provider: SELF [200] Allergies As of Date: 10/06/2018 Noted Allergy Reaction ASPIRIN 10/06/2018 14 - Other: See Comments Comments: nose bleeds Date Reviewed: 10/06/2018 Reviewed by: Candy Tomlinson LPN - Fully Assessed Reason for Visit: Established Patient [175] Cmt: establish care Primary Visit Diagnosis:Moderate episode of recurrent major depressive disorder (HCC) [F33.1] Other Visit Diagnoses:Tobacco abuse disorder [Z72.0] Breast cancer screening by mammogram [Z12.31] Lipid screening [Z13.220] Need for vaccination [Z23] Insomnia, unspecified type [G47.00] Order(s):ARMANDO SCREENING [9470633] Order #: [id number] FUTURE CBC + DIFF [SQCBCDIF] Order #: [id number] FUTURE COMP METABOLIC PANEL [SQCMP] Order #: [id number] FUTURE LIPID PANEL BASIC [SQLIPB] Order #: [id number] FUTURE PNEUMOCOCCAL IMMUNIZATION PPSV 23 [08775HEF] Order #: [id number] traZODone (DESYREL) 50 mg tabletTake 1 tablet by mouth at bedtime as needed for Sedation.Disp: 30 tabletRfl: 1 sertraline (ZOLOFT) 50 mg tabletTake 1 tablet by mouth once daily.Disp: 30 tabletRfl: 3 Prescriptions as of 10/06/2018 Sig: TRAZODONE 50 MG TABLET Take 1 tablet by mouth at bed* SERTRALINE 50 MG TABLET Take 1 tablet by mouth once d* BROMPHENIRAMINE-PSEUDOEPHEDRI* Take 5 mL by mouth four times* Medication notes this encounter CUHXSCGGWGKQOOT-[id number]-IH 2 MG-30 MG-10 MG/5 ML SYRUP >> Candy Tomlinson LPN 10/06/2018 10:24 AM >> CANDY TOMLINSON LPN TueOct 06, 2018 10:24 AM completed Problem List As Of Date: 10/06/2018 (None) Prescriptions ordered this encounter Disp Refills Start End TRAZODONE 50 MG TABLET 30 t* 1 10/06/2018 Route: ORAL Sig: Take 1 tablet by mouth at bedtime as needed for Sedation. SERTRALINE 50 MG TABLET 30 t* 3 10/06/2018 Route: ORAL Sig: Take 1 tablet by mouth once daily. Encounter Status:Closed by SUGAR HERNANDEZ MD on 10/06/18 XR CHEST 2V FRONTAL/LAT Observed: 09/12/2018 Status: F Source: [place] 12:07 PM [facility] REPOSITORY * * *Final Report* * * DATE OF EXAM: Sep 12 2018 12:07PM WOX [id number] - XR CHEST 2V FRONTAL/LAT / PROCEDURE REASON: Cough * * * * Physician Interpretation * * * * EXAMINATION: CHEST RADIOGRAPH (2 VIEW FRONTAL and LATERAL) CLINICAL HISTORY: Cough MQ: XC2_5 Comparison: None. RESULT: Lines, tubes, and devices: None. Lungs and pleura: No consolidation. No lung mass. No pleural effusion. Cardiomediastinal silhouette: Normal cardiomediastinal silhouette. Other: The spine shows degenerative changes. IMPRESSION: No acute radiographic abnormality. Build Automation Engineer: JAKOB Transcribe Date/Time: Sep 12 2018 12:10P Dictated by : JACKSON KEY MD This examination was interpreted and the report reviewed and electronically signed by: JACKSON KEY MD on Sep 12 2018 12:11PM EST [id number] PROGRESS Observed: 09/12/2018 Status: COMPLETED Source: [place] 12:01 PM [facility] [place] REPOSITORY HNO ID: [id number] Author: Tri Perales (Rt) Service: (none) Author Type: Cam Maker Type: Progress Notes Filed: 09/12/2018 12:07 PM Note Text: Radiology Service Progress Note PATIENT NAME: Jos Mccall DATE OF SERVICE: September 12, 2018 TIME: 12:01 PM PATIENT IDENTITY VERIFICATION COMPLETED USING TWO (2) METHODS: Patient confirmed name verbally and Date of . PATIENT GENDER DATA: Female. status: : No status: NO. PATIENT RELEVANT IMPLANT DATA REVIEWED: Not Applicable RADIOLOGY DEPARTMENT: General X-ray: Exam(s) Completed: Chest X-Ray PERIPHERAL IV DATA: Not applicable SIGNED BY: RT Angella September 12, 2018 12:01 PM PROGRESS Observed: 09/12/2018 Status: COMPLETED Source: [place] 11:47 AM [facility] REPOSITORY HNO ID: [id number] Author: Stephanie Blake Service: (none) Author Type: Nurse Practitioner Type: Progress Notes Filed: 09/12/2018 12:33 PM Note Text: Subjective HPI Jos Mccall is a 53 year old female who presents with cough and sore throat for the past week. She has had diarrnea for 4 days. She went to ER one week ago and was given an inhaler. No known sick contacts. She is a current every day smoker. Review of Systems Constitutional: Negative. Negative for fever. HENT: Positive for congestion. Negative for ear pain and sore throat. Respiratory: Positive for cough and sputum production. Negative for shortness of breath. Cardiovascular: Negative. Negative for chest pain. Gastrointestinal: Positive for diarrhea and nausea. Neurological: Positive for headaches. BP 128/72 Pulse 64 Temp 36.8 ?C (98.2 ?F) (Tympanic) Resp 18 Wt 74.3 kg (163 lb 12.8 oz) SpO2 96% No past medical history on file. No past surgical history on file. ALLERGIES Patient has no known allergies. MEDICATIONS benzonatate (TESSALON PERLE) 100 mg capsule Take 2 capsules by mouth three times daily as needed. No family history on file. Social History Substance Use Topics - Smoking status: Current Every Day Smoker - Smokeless tobacco: Never Used - Alcohol use Not on file Objective Physical Exam Constitutional: She is well-developed, well-nourished, and in no distress. HENT: Right Ear: Tympanic membrane, external ear and ear canal normal. Left Ear: Tympanic membrane, external ear and ear canal normal. Nose: Nose normal. Mouth/Throat: Uvula is midline, oropharynx is clear and moist and mucous membranes are normal. No posterior oropharyngeal edema or posterior oropharyngeal erythema. Neck: Neck supple. Cardiovascular: Normal rate, regular rhythm and normal heart sounds. Pulmonary/Chest: Effort normal. No tachypnea. She has decreased breath sounds in the right lower field and the left lower field. She has wheezes (scattered). She has no rales. Frequent cough noted Lymphadenopathy: She has no cervical adenopathy. Neurological: She is alert. Skin: Skin is warm and dry. Nursing note and vitals reviewed. ASSESSMENT/PLAN: 1. Cough - ICD9: 786.2, ICD10: R05 - XR CHEST 2V FRONTAL/LAT. My reading: negative. Radiologist IMPRESSION: No acute radiographic abnormality. Dictated by : AJCKSON KEY MD 2. Bronchitis - ICD9: 490, ICD10: J40 - METHYLPREDNISOLONE 4 MG TABLETS IN A DOSE PACK - [id number]-LENOUHGNIBZHEOD-TJ 2 MG-30 MG-10 MG/5 ML SYRUP - GUAIFENESIN ER 600 MG TABLET, EXTENDED RELEASE 12 HR - Follow-up with your PCP in 3-5 days if symptoms have not improved or sooner if symptoms worsen - Discussed red flags and need for immediate medical evaluation if any occur. - Discussed supportive care treatment with fluids, rest and analgesia. - Discussed expected course of illness Stephanie Blake APRN.SHARI CNOV Observed: 09/12/2018 Status: COMPLETED Source: [place] 11:15 AM [facility] REPOSITORY [facility] ([id number]) 1965 F [facility] Date Time Provider Department 09/12/18 11:15 AM STEPHANIE BLAKE (SHARI) [facility] During your visit today, we recorded the following information about you: Temperature Pulse Respiration Blood pressure 98.2 degrees 64/minute 18/minute 128/72 Weight 74.3 kg Stephanie Blake APRN.CNP 09/12/2018 12:33 PM Signed Subjective HPI Jos Mccall is a 53 year old female who presents with cough and sore throat for the past week. She has had diarrnea for 4 days. She went to ER one week ago and was given an inhaler. No known sick contacts. She is a current every day smoker. Review of Systems Constitutional: Negative. Negative for fever. HENT: Positive for congestion. Negative for ear pain and sore throat. Respiratory: Positive for cough and sputum production. Negative for shortness of breath. Cardiovascular: Negative. Negative for chest pain. Gastrointestinal: Positive for diarrhea and nausea. Neurological: Positive for headaches. BP 128/72 Pulse 64 Temp 36.8 ?C (98.2 ?F) (Tympanic) Resp 18 Wt 74.3 kg (163 lb 12.8 oz) SpO2 96% No past medical history on file. No past surgical history on file. ALLERGIES Patient has no known allergies. MEDICATIONS benzonatate (TESSALON PERLE) 100 mg capsule Take 2 capsules by mouth three times daily as needed. No family history on file. Social History Substance Use Topics - Smoking status: Current Every Day Smoker - Smokeless tobacco: Never Used - Alcohol use Not on file Objective Physical Exam Constitutional: She is well-developed, well-nourished, and in no distress. HENT: Right Ear: Tympanic membrane, external ear and ear canal normal. Left Ear: Tympanic membrane, external ear and ear canal normal. Nose: Nose normal. Mouth/Throat: Uvula is midline, oropharynx is clear and moist and mucous membranes are normal. No posterior oropharyngeal edema or posterior oropharyngeal erythema. Neck: Neck supple. Cardiovascular: Normal rate, regular rhythm and normal heart sounds. Pulmonary/Chest: Effort normal. No tachypnea. She has decreased breath sounds in the right lower field and the left lower field. She has wheezes (scattered). She has no rales. Frequent cough noted Lymphadenopathy: She has no cervical adenopathy. Neurological: She is alert. Skin: Skin is warm and dry. Nursing note and vitals reviewed. ASSESSMENT/PLAN: 1. Cough - ICD9: 786.2, ICD10: R05 - XR CHEST 2V FRONTAL/LAT. My reading: negative. Radiologist IMPRESSION: No acute radiographic abnormality. Dictated by : JACKSON KEY MD 2. Bronchitis - ICD9: 490, ICD10: J40 - METHYLPREDNISOLONE 4 MG TABLETS IN A DOSE PACK - [id number] 2 MG-30 MG-10 MG/5 ML SYRUP - GUAIFENESIN ER 600 MG TABLET, EXTENDED RELEASE 12 HR - Follow-up with your PCP in 3-5 days if symptoms have not improved or sooner if symptoms worsen - Discussed red flags and need for immediate medical evaluation if any occur. - Discussed supportive care treatment with fluids, rest and analgesia. - Discussed expected course of illness JOSHUA Wong APRN.CNP 09/12/2018 12:19 PM Signed ASSESSMENT/PLAN: 1. Cough - ICD9: 786.2, ICD10: R05 - XR CHEST 2V FRONTAL/LAT. My reading: negative. Radiologist IMPRESSION: No acute radiographic abnormality. Dictated by : JACKSON KEY MD 2. Bronchitis - ICD9: 490, ICD10: J40 - METHYLPREDNISOLONE 4 MG TABLETS IN A DOSE PACK - [id number] 2 MG-30 MG-10 MG/5 ML SYRUP - GUAIFENESIN ER 600 MG TABLET, EXTENDED RELEASE 12 HR Stephanie Blake APRN.SHARI ACUTE BRONCHITIS: You have acute bronchitis. This means the airway passages in your lungs are inflamed. Bronchitis may be caused by viruses or bacteria. Inhaling cigarette smoke will always make it worse. Exposure to irritating chemicals or second hand smoke as well as allergies can contribute to bronchitis. Repeat episodes of bronchitis may cause lifelong lung problems. Acute bronchitis is usually treated with rest, fluids, cough medicine, and possibly antibiotics or inhaled medicine to open up the small airways. It is very important that you avoid smoke and drink increased amounts of fluids. A cool air vaporizer can help thin bronchial secretions. This makes it easier to cough and clear your chest. If you are a cigarette smoker, consider using nicotine gum or skin patches to help you withdraw. Recovery from bronchitis is often slow, but you should start feeling better after 2-3 days of treatment. Please call your doctor or return here if you have any of the following symptoms: - Increased fever, chills, or chest pain. - Severe shortness of breath or bloody sputum. - Do not improve after 3 days of proper treatment. Referring Provider: SELF [200] Allergies As of Date: 09/12/2018 Noted Allergy Reaction PENICILLINS 09/12/2018 14 - Other: See Comments Comments: Nosebleeds Date Reviewed: 09/12/2018 Reviewed by: Stephanie ([facility]) Hayden - Fully Assessed Reason for Visit: diarrhea, cough and ST [Other] Cmt: x 1 week Primary Visit Diagnosis:Cough [R05] Other Visit Diagnosis:Bronchitis [J40] Order(s):XR CHEST 2V FRONTAL/LAT [[id number]] Order #: [id number] FUTURE methylPREDNISolone (MEDROL, NATALIIA,) 4 mg Dose-PackFollow dosing instructions, take with food.Disp: 1 PackageRfl: 0 Hscamtmnijmowxp-Byihyqijl-DQ (BROMFED DM) 2-30-10 mg/5 mL syrupTake 5 mL by mouth four times daily as needed.Disp: 118 mLRfl: 0 guaiFENesin (MUCINEX) 600 mg 12 hr tabletTake 1 tablet by mouth twice daily for 10 days.Disp: 20 tabletRfl: 0 Prescriptions as of 09/12/2018 Sig: BROMPHENIRAMINE-PSEUDOEPHEDRI* Take 5 mL by mouth four times* GUAIFENESIN ER 600 MG TABLET,* Take 1 tablet by mouth twice * METHYLPREDNISOLONE 4 MG TABLE* Follow dosing instructions, t* Problem List As Of Date: 09/12/2018 (None) Other instructions from your clinician: ASSESSMENT/PLAN: 1. Cough - ICD9: 786.2, ICD10: R05 - XR CHEST 2V FRONTAL/LAT. My reading: negative. Radiologist IMPRESSION: No acute radiographic abnormality. Dictated by : JACKSON KEY MD 2. Bronchitis - ICD9: 490, ICD10: J40 - METHYLPREDNISOLONE 4 MG TABLETS IN A DOSE PACK - ULBLRCBQCTMWNLU-BHSFWRXFZXTPODN-CP 2 MG-30 MG-10 MG/5 ML SYRUP - GUAIFENESIN ER 600 MG TABLET, EXTENDED RELEASE 12 HR Stephanie Praisler-Wood, SENIOR WEB DESIGNER.ASSOCIATE TEAM PHYSICIAN ACUTE BRONCHITIS: You have acute bronchitis. This means the airway passages in your lungs are inflamed. Bronchitis may be caused by viruses or bacteria. Inhaling cigarette smoke will always make it worse. Exposure to irritating chemicals or second hand smoke as well as allergies can contribute to bronchitis. Repeat episodes of bronchitis may cause lifelong lung problems. Acute bronchitis is usually treated with rest, fluids, cough medicine, and possibly antibiotics or inhaled medicine to open up the small airways. It is very important that you avoid smoke and drink increased amounts of fluids. A cool air vaporizer can help thin bronchial secretions. This makes it easier to cough and clear your chest. If you are a cigarette smoker, consider using nicotine gum or skin patches to help you withdraw. Recovery from bronchitis is often slow, but you should start feeling better after 2-3 days of treatment. Please call your doctor or return here if you have any of the following symptoms: - Increased fever, chills, or chest pain. - Severe shortness of breath or bloody sputum. - Do not improve after 3 days of proper treatment. Prescriptions ordered this encounter Disp Refills Start End METHYLPREDNISOLONE 4 MG TABLETS IN A* 1 Pa* 0 09/12/2018 09/18/2018 Sig: Follow dosing instructions, take with food. VJJOVEIKRQWYOSB-KFBIUSKYKITQMIT-GD 2* 118 * 0 09/12/2018 Route: ORAL Sig: Take 5 mL by mouth four times daily as needed. GUAIFENESIN ER 600 MG TABLET, EXTEND* 20 t* 0 09/12/2018 09/22/2018 Route: ORAL Sig: Take 1 tablet by mouth twice daily for 10 days. Medications Discontinued During This Encounter benzonatate (TESSALON PERLE) 100 mg * 30 c* 0 06/24/2018 09/12/2018 Route: ORAL Sig: Take 2 capsules by mouth three times daily as needed. Patient not taking: Reported on 07/26/2018 Disc: Reason for discontinue is not on file. Encounter Status:Closed by STEPHANIE BLAKE on 09/12/18 12 LEAD ELECTROCARDIOGRAM Observed: 09/08/2018 Status: F Source: [place] 10:46 AM [facility] REPOSITORY [facility] Cardiovascular Services [address] [place], [place] [address] [address] 12 Lead EKG 09/04/182002 MR#: [id number] Acct: [id number] Name: JOS MCCALL Rep #: [id number] : 1965 53 From: Kristian Casas MD Attending Dr: Status: DEP ER Ordering Dr: Kelly Zhu MD Date: 09/04/18 Location: ED Sex: F C Admitted: Test Reason : RF Blood Pressure : / mmHG Vent. Rate : 081 BPM Atrial Rate : 081 BPM P-R Int : 128 ms QRS Dur : 098 ms QT Int : 358 ms P-R-T Axes : 029 020 030 degrees QTc Int : 415 ms Normal sinus rhythm Normal ECG Confirmed by CHRISTIANA DUNCAN, KRISTIAN ([id number]), editor in chief newspaper JOVANNY CHAMBERLAIN ([id number]) on 09/08/2018 10:46:01 AM Referred By: SJ Confirmed By:KRISTIAN CASAS MD 09/08/18 1046 Date Kristian Casas MD CC: MD Barbara Zhu; No Primary Care Physician Signed EMERGENCY DEPARTMENT Observed: 09/04/2018 Status: F Source: [place] SUMMARY 11:00 PM [facility] REPOSITORY [facility] Medical Records Department [address] [place] [address] Emergency Department Summary 09/04/182036 MR#: [id number] Acct: [id number] Name: JOS MCCALL Rep #: [id number] : 1965 53 From: Kelly Zhu MD PCP: Care Physician, No Primary Status: DEP ER - ER Visit Summary Date of Service: 09/04/18 Chief Complaint: [] Use body aches harsh cough mild sore throat History of Present Illness: The patient is a 53 F [] symptoms suddenly consisting primarily of diffuse body aches harsh cough symptoms persist and she came in today does smoke does not have history of COPD NE PE or pneumonia no other complaints bowel bladder habits unremarkable Physical Examination: [] 125/75, 99.6 General, no distress resting comfortably HEENT is generally unremarkable The neck is supple no adenopathy Cardiovascular, regular rate and rhythm Lungs, clear bilateral Abdomen, soft nontender Extremities, no clubbing cyanosis or edema Neurologic, awake alert answering questions appropriately moving all 4 extremities She is in no distress moving all 4 extremities she complains of just diffuse body aches clinically she appears to have URI viral illness possible flu Flu swab returned positive See IV fluids screening labs chest x-ray aerosols Studies are all generally unremarkable see those reports she has received IV fluids feeling better explained her the counts with influenza A we discussed the concept of Tamiflu and the risk profile to that she is deferred that at this time she started on Naprosyn inhalers and she will follow-up with her family doctors next few days Test Results: [] Emergency Department Course and Treatment: [] Treatment Plan: [] Disposition: [] Home stable Impression: [] Influenza A This note was generated with ThemBidation software. It may contain incorrect words, spelling, and punctuation that were not noted in review of the chart prior to signing ED Disposition - Plan for ED Patient: Chief Complaint: Cold Sx Referrals: Care Physician,No Primary [Primary Care Provider] - What to do if you have Problems For any increased pain, shortness of breath, bleeding, nausea or vomiting, chest pain, or any unexpected problems, contact your Primary Care Provider. Call [facility] ([phone]) or report to the closest Emergency Room. Call 911 if necessary. 09/04/18 2300 <Electronically signed by Kelly Zhu MD> Date Kelly Zhu MD Cosigner Signature (If Indicated): Date CC: No Primary Care Physician DISCHARGE INSTRUCTION Observed: 09/04/2018 Status: F Source: [place] 9:30 PM [facility] REPOSITORY [facility] Medical Records Department [address] [place] [address] Discharge Instruction 09/04/182128 MR#: [id number] Acct: [id number] Name: JOS MCCALL Rep #: [id number] : 1965 53 From: Kelly Zhu MD PCP: Care Physician, No Primary Status: REG ER ED Disposition - Plan for ED Patient: Chief Complaint: Cold Sx Instructions: ED Flu Prescriptions: Albuterol Inhaler [Ventolin Hfa] 1 - 2 puff INHALATION Q4H PRN PRN #1 inhaler PRN Reason: Wheezing Referrals: Care Physician,No Primary [Primary Care Provider] - Tg Moreno [NON-STAFF] - What to do if you have Problems For any increased pain, shortness of breath, bleeding, nausea or vomiting, chest pain, or any unexpected problems, contact your Primary Care Provider. Call [facility] ([phone]) or report to the closest Emergency Room. Call 911 if necessary. 09/04/182129 <Electronically signed by Kelly Zhu MD> Date Kelly Zhu MD Cosigner Signature (If Indicated): Date CC: No Primary Care Physician CBC W/DIFF, AUTOMATED Collected: 09/04/2018 Status: F Source: [place] 8:08 PM [facility] REPOSITORY TYPE CODE TESTS RESULT OUT OF RANGE REFERENCE UNITS LAB L100.1000 4.4-11.0 K/mm3 Normal WBC 5.0 LAB L100.1200 4.2-5.4 M/mm3 Low RBC 4.18 LAB L100.1300 12.0-15.0 g/dl Normal HGB 13.1 LAB L100.1400 37-47 % Normal HCT 39.5 LAB L100.1500 81-99 fL Normal MCV 94.5 LAB L100.1600 27.0-32.0 pg Normal MCH 31.3 LAB L100.1700 32-36 g/gl Normal MCHC 33.2 LAB L100.1810 11.6-14.6 % Normal RDW CV 13.6 LAB L100.1820 35.1-43.9 fl High RDW SD 46.7 LAB L100.1900 150-450 K/mm3 Normal PLT 167 LAB L100.2000 6.2-12.0 fl Normal MPV 8.5 LAB L100.2100 47-70 % Normal NEUT% 68.6 LAB L100.2200 19-41 % Normal LY% 21.8 LAB L100.2300 0-10 % Normal MONO% 9.2 LAB L100.2400 0-5 % Normal EO% 0.0 LAB L100.2500 0-1 % Normal BASO% 0.2 LAB L100.2550 0.0-0.9 % Normal IM GRAN % 0.200 Result Comment: IG% - Immature Granulocytes (promyelocytes, myelocytes and metamyelocytes) > 1% indicates that a LEFT SHIFT is Present. LAB L100.2620 2.0-7.7 X10 3/uL Normal Absolute Neut 3.4 LAB L100.2720 0.83-4.51 X10 3/ul Normal Absolute Lymph 1.09 Performed By: #### L100.0100 #### [facility] [address] [place], [place], [address] BASIC METABOLIC Collected: 09/04/2018 Status: F Source: [place] PROFILE (BMP) 8:08 PM [facility] REPOSITORY TYPE CODE TESTS RESULT OUT OF RANGE REFERENCE UNITS LAB L501.0100 74-106 mg/dL High GLU 118 Result Comment: Fasting Glucose result from 100 to 125 mg/dL suggests IMPAIRED HOMEOSTASIS per A.D.A. criteria. Please note revised GLUCOSE reference range effective 2017. LAB L501.1000 7-18 mg/dL Normal BUN 11 LAB L501.1100 0.55-1.02 mg/dL Normal CREAT,SERUM 0.77 Result Comment: The validity of the calculated GFR AND GFRAA in patients over 70 years has not been determined. Clinical correlation is essential. LAB L501.1110 >60 mL/min Normal EST GFR 84 Result Comment: Non- GFR Calc LAB L501.1115 >60 mL/min Normal EST GFR - AA 101 Result Comment: GFR Calc LAB L501.1255 ml/min Normal Estimated CRCL 72.96 LAB L501.1300 10-20 RATIO Normal BUN/CRE 14.3 LAB L501.2200 8.5-10 mg/dL Normal .1 CA 8.5 LAB L501.5300 136-14 mmol/L Normal 5 NA 136 LAB L501.5600 3.5-5. mmol/L Low 1 K 3.3 LAB L501.5900 98-107 mmol/L Normal CL 103 LAB L501.6100 21.0-3 mmol/L Normal 2.0 CO2 25.0 LAB L501.6200 5-15 Normal GAP 8 Performed By: #### L500.2500, L501.4010 #### [facility] [address] [facility] [place], [place], [id number] TROPONIN-I Collected: 09/04/2018 Status: F Source: [place] 8:08 PM [facility] REPOSITORY TYPE CODE TESTS RESULT OUT OF RANGE REFERENCE UNITS LAB L501.4010 <0.045 ng/mL Normal < 0.015 TROPONIN-I Result Comment: TROPONIN-I EXPECTED VALUES <0.045 Negative 0.045 - 0.590 Consistent with Cardiac Damage > OR = 0.600 Critical Value Not every elevated troponin is indicative of NE. These values should be used with clinical judgement in examining the patient's clinical picture for diagnosis. To establish a diagnosis of NE versus myocardial injury, there must be a demonstrated rise and/or fall in the troponin values, in addition to ischemic symptoms, EKG changes, new regional wall motion abnormality, and/or angiographical evidence. PLEASE NOTE: REFERENCE RANGES EDITED 18 Performed By: #### L500.2500, L501.4010 #### [facility] [address] [place], [place], [address] BNP,B-TYPE NATRIURETIC Collected: 09/04/2018 Status: F Source: [place] 8:08 PM [facility] REPOSITORY TYPE CODE TESTS RESULT OUT OF RANGE REFERENCE UNITS LAB L503.6620 0-100 pg/mL Normal B-TYPE 21.2 JONATHAN PEP Performed By: #### L503.6620 #### [facility] [address] [facility] [address] Observed: 09/04/2018 Status: F Source: [place] INFLUENZA A+B (RAPID 8:00 PM [facility]) REPOSITORY RESULTS CALLED TO RADHA CARTAGENA ED 09/04/182028 Gurmeet Venegas. REPORT READ BACK BY SAME . FLU A/B Rapid Negative test results should be confirmed by culture. Order Rapid Viral Culture for Influenzae A+B ([id number]) if clinically indicated. Influenza Ag, Direct POSITIVE for the presence of INFLUENZA A Antigen only ORGANISM 1: INFLUENZAE A Performed By: #### M101.0101 #### [facility] [address] [place], [place], [address] CHEST PA AND LATERAL Observed: 09/04/2018 Status: F Source: [place] 7:50 PM [facility] REPOSITORY [facility] Imaging Services [address] [place] [address] Chest PA and Lateral MR#: [id number] Acct: [id number] Name: MELITA MCCALLH Carlos Rep #: [id number] : 1965 F 53 From: David Dukes MD PCP: Care Physician, No Primary Status: REG ER Study: Chest PA and Lateral Date of Exam: 09/04/18 Exam# [id number] Ordering Dr: Kelly Zhu MD STUDY: X-RAY CHEST REASON FOR EXAM: Female, 53 years old. Cold symptoms. TECHNIQUE: PA and lateral views of the chest. COMPARISON: June 11, 2014 FINDINGS: There are monitoring devices. Lungs are clear and expanded. There is no demonstrated pleural abnormality. Normal size heart. Normal mediastinum and maile. Normal visualized pulmonary arteries. Normal visualized aortic arch and descending thoracic aorta. There are diffuse degenerative changes of the visualized thoracic spine. Normal visualized ribs, clavicles, and shoulders. There is no demonstrated abnormality of the visualized soft tissue structures of the upper abdomen. RAD/Chest PA and Lateral IMPRESSION: Degenerative changes, as described above. No demonstrated acute cardiopulmonary process. Electronically Signed: David Dukes MD at 21:34 EST , Service support , CC: MD Barbara Zhu; No Primary Care Physician Build Automation Engineer: Signed PROGRESS Observed: 07/26/2018 Status: COMPLETED Source: [place] 6:28 PM [facility] [place] REPOSITORY HNO ID: [id number] Author: Naveen Truong (Jeremy) Kailyn Service: (none) Author Type: Physician Qa Auditor Type: Progress Notes Filed: 07/26/2018 6:30 PM Note Text: Subjective HPI Patient presents with the chief complaint of a right lower lip infection. States she noticed a blister this morning and she had popped it and had some clear fluid come out of it. Started to get more swollen and painful so she came in for evaluation. She had the same thing about the same time last year and was seen at a different urgent care. She is not sure if it was a cold sore or not. Review of Systems HENT: Infection on right lower lip All other systems reviewed and are negative. No past medical history on file. Current Outpatient Prescriptions: valACYclovir (VALTREX) 500 mg tablet Take 4 tablets by mouth twice daily for 1 day. Disp: 8 tablet Rfl: 0 benzonatate (TESSALON PERLE) 100 mg capsule Take 2 capsules by mouth three times daily as needed. (Patient not taking: Reported on 07/26/2018 ) Disp: 30 capsule Rfl: 0 No current facility-administered medications for this visit. No past surgical history on file. No family history on file. Social History Substance Use Topics - Smoking status: Current Every Day Smoker - Smokeless tobacco: Never Used - Alcohol use Not on file BP 110/70 Pulse 72 Temp 36.6 ?C (97.8 ?F) (Tympanic) Resp 16 Wt 75.6 kg (166 lb 9.6 oz) Objective Physical Exam Constitutional: She is oriented to person, place, and time and well-developed, well-nourished, and in no distress. HENT: Head: Normocephalic and atraumatic. Right Ear: Tympanic membrane, external ear and ear canal normal. Left Ear: Tympanic membrane, external ear and ear canal normal. Nose: Nose normal. Mouth/Throat: Patient has multiple vesicular lesions on her right lower lip consistent with herpetic lesions. Cardiovascular: Normal rate, regular rhythm and normal heart sounds. Pulmonary/Chest: Effort normal and breath sounds normal. Neurological: She is alert and oriented to person, place, and time. Skin: Skin is warm and dry. Psychiatric: Affect and judgment normal. Nursing note and vitals reviewed. ASSESSMENT/PLAN: 1. Recurrent cold sores - ICD9: 054.9, ICD10: B00.1 I will treat with Valtrex 2 g by mouth twice a day for one day. Instructed on the contagious nature of the infection and to avoid small children. Discussed follow-up as needed. Patient agreeable with plan. Naveen Avina PA-C CNOV Observed: 07/26/2018 Status: COMPLETED Source: [place] 6:00 PM [facility] REPOSITORY Office Visit ([facility]) JOS MCCALL ([id number]) 1965 F Date Time Provider Department 07/26/18 6:00 PM NAVEEN AVINA (JEREMY) [facility] During your visit today, we recorded the following information about you: Temperature Pulse Respiration Blood pressure 97.8 degrees 72/minute 16/minute 110/70 Weight 75.6 kg Naveen Avina PA-C 07/26/2018 6:30 PM Signed Subjective HPI Patient presents with the chief complaint of a right lower lip infection. States she noticed a blister this morning and she had popped it and had some clear fluid come out of it. Started to get more swollen and painful so she came in for evaluation. She had the same thing about the same time last year and was seen at a different urgent care. She is not sure if it was a cold sore or not. Review of Systems HENT: Infection on right lower lip All other systems reviewed and are negative. No past medical history on file. Current Outpatient Prescriptions: valACYclovir (VALTREX) 500 mg tablet Take 4 tablets by mouth twice daily for 1 day. Disp: 8 tablet Rfl: 0 benzonatate (TESSALON PERLE) 100 mg capsule Take 2 capsules by mouth three times daily as needed. (Patient not taking: Reported on 07/26/2018 ) Disp: 30 capsule Rfl: 0 No current facility-administered medications for this visit. No past surgical history on file. No family history on file. Social History Substance Use Topics - Smoking status: Current Every Day Smoker - Smokeless tobacco: Never Used - Alcohol use Not on file BP 110/70 Pulse 72 Temp 36.6 ?C (97.8 ?F) (Tympanic) Resp 16 Wt 75.6 kg (166 lb 9.6 oz) Objective Physical Exam Constitutional: She is oriented to person, place, and time and well-developed, well-nourished, and in no distress. HENT: Head: Normocephalic and atraumatic. Right Ear: Tympanic membrane, external ear and ear canal normal. Left Ear: Tympanic membrane, external ear and ear canal normal. Nose: Nose normal. Mouth/Throat: Patient has multiple vesicular lesions on her right lower lip consistent with herpetic lesions. Cardiovascular: Normal rate, regular rhythm and normal heart sounds. Pulmonary/Chest: Effort normal and breath sounds normal. Neurological: She is alert and oriented to person, place, and time. Skin: Skin is warm and dry. Psychiatric: Affect and judgment normal. Nursing note and vitals reviewed. ASSESSMENT/PLAN: 1. Recurrent cold sores - ICD9: 054.9, ICD10: B00.1 I will treat with Valtrex 2 g by mouth twice a day for one day. Instructed on the contagious nature of the infection and to avoid small children. Discussed follow-up as needed. Patient agreeable with plan. Naveen Avina PA-C Referring Provider: SELF [200] Allergies As of Date: 07/26/2018 (No Known Allergies) Date Reviewed: 07/26/2018 Reviewed by: Grace Resendiz LPN - Fully Assessed Reason for Visit: sore on lower lip [Other] Cmt: x 1 day Primary Visit Diagnosis:Recurrent cold sores [B00.1] Order(s):valACYclovir (VALTREX) 500 mg tabletTake 4 tablets by mouth twice daily for 1 day.Disp: 8 tabletRfl: 0 Prescriptions as of 07/26/2018 Sig: VALACYCLOVIR 500 MG TABLET Take 4 tablets by mouth twice* BENZONATATE 100 MG CAPSULE Take 2 capsules by mouth thre* Patient not taking: Reported on 07/26/2018 Problem List As Of Date: 07/26/2018 (None) Prescriptions ordered this encounter Disp Refills Start End VALACYCLOVIR 500 MG TABLET 8 ta* 0 07/26/2018 07/27/2018 Route: ORAL Sig: Take 4 tablets by mouth twice daily for 1 day. Encounter Status:Closed by NAVEEN AVINA PA-C on 07/26/18 PROGRESS Observed: 06/24/2018 Status: COMPLETED Source: [place] 2:48 PM [facility] [place] REPOSITORY HNO ID: [id number] Author: Naveen Avina (Pa) Service: (none) Author Type: Physician Qa Auditor Type: Progress Notes Filed: 06/24/2018 2:57 PM Note Text: Subjective Cough Associated symptoms include wheezing. Pertinent negatives include no chest pain, no ear pain, no sore throat and no shortness of breath. Pt presents with a cough for 8-9 days. She started with nasal congestion which has resolved. She is an everyday smoker. No hx asthma or diagnosed COPD. No fever or chills. She has felt wheezy. No nvd or abdominal pain. Review of Systems Constitutional: Negative. Negative for fever. HENT: Negative for congestion, ear pain and sore throat. Eyes: Negative. Respiratory: Positive for cough, sputum production and wheezing. Negative for shortness of breath. Cardiovascular: Negative. Negative for chest pain. Gastrointestinal: Negative. Genitourinary: Negative. Musculoskeletal: Negative. Skin: Negative. All other systems reviewed and are negative. No past medical history on file. Current Outpatient Prescriptions: predniSONE (DELTASONE) 20 mg tablet Take 2 tablets by mouth once daily for 5 days. Disp: 10 tablet Rfl: 0 benzonatate (TESSALON PERLE) 100 mg capsule Take 2 capsules by mouth three times daily as needed. Disp: 30 capsule Rfl: 0 doxycycline (VIBRA-TABS) 100 mg tablet Take 1 tablet by mouth twice daily for 10 days. Disp: 20 tablet Rfl: 0 No current facility-administered medications for this visit. No past surgical history on file. No family history on file. Social History Substance Use Topics - Smoking status: Current Every Day Smoker - Smokeless tobacco: Never Used - Alcohol use Not on file BP 118/82 Pulse 99 Temp 36.9 ?C (98.5 ?F) (Left Tympanic) Resp 16 Wt 74.3 kg (163 lb 12.8 oz) SpO2 98% Objective Physical Exam Constitutional: She is oriented to person, place, and time and well-developed, well-nourished, and in no distress. HENT: Head: Normocephalic and atraumatic. Right Ear: Tympanic membrane, external ear and ear canal normal. Left Ear: Tympanic membrane, external ear and ear canal normal. Nose: Nose normal. Mouth/Throat: Uvula is midline, oropharynx is clear and moist and mucous membranes are normal. Neck: Normal range of motion. Neck supple. Cardiovascular: Normal rate, regular rhythm and normal heart sounds. Pulmonary/Chest: Effort normal and breath sounds normal. Harsh cough noted Lymphadenopathy: She has no cervical adenopathy. Neurological: She is alert and oriented to person, place, and time. Skin: Skin is warm and dry. Psychiatric: Affect and judgment normal. Nursing note and vitals reviewed. ASSESSMENT/PLAN: 1. Acute bronchitis, unspecified organism - ICD9: 466.0, ICD10: J20.9 Tx with prednisone, tessalon, and doxycycline. I also had her make an appt to est with a primary doctor as she does not have one. Discussed with patient concerning symptoms to go to the emergency department or follow up here. Pt agreeable with this plan. WOLF Morales Observed: 06/24/2018 Status: COMPLETED Source: [place] 2:45 PM [facility] REPOSITORY Office Visit ([facility]) JOS MCCALL ([id number]) 1965 F Date Time Provider Department 06/24/18 2:45 PM NAVEEN AVINA (PA) [facility] During your visit today, we recorded the following information about you: Temperature Pulse Respiration Blood pressure 98.5 degrees 99/minute 16/minute 118/82 Weight 74.3 kg Naveen Avina PA-C 06/24/2018 2:57 PM Signed Subjective Cough Associated symptoms include wheezing. Pertinent negatives include no chest pain, no ear pain, no sore throat and no shortness of breath. Pt presents with a cough for 8-9 days. She started with nasal congestion which has resolved. She is an everyday smoker. No hx asthma or diagnosed COPD. No fever or chills. She has felt wheezy. No nvd or abdominal pain. Review of Systems Constitutional: Negative. Negative for fever. HENT: Negative for congestion, ear pain and sore throat. Eyes: Negative. Respiratory: Positive for cough, sputum production and wheezing. Negative for shortness of breath. Cardiovascular: Negative. Negative for chest pain. Gastrointestinal: Negative. Genitourinary: Negative. Musculoskeletal: Negative. Skin: Negative. All other systems reviewed and are negative. No past medical history on file. Current Outpatient Prescriptions: predniSONE (DELTASONE) 20 mg tablet Take 2 tablets by mouth once daily for 5 days. Disp: 10 tablet Rfl: 0 benzonatate (TESSALON PERLE) 100 mg capsule Take 2 capsules by mouth three times daily as needed. Disp: 30 capsule Rfl: 0 doxycycline (VIBRA-TABS) 100 mg tablet Take 1 tablet by mouth twice daily for 10 days. Disp: 20 tablet Rfl: 0 No current facility-administered medications for this visit. No past surgical history on file. No family history on file. Social History Substance Use Topics - Smoking status: Current Every Day Smoker - Smokeless tobacco: Never Used - Alcohol use Not on file BP 118/82 Pulse 99 Temp 36.9 ?C (98.5 ?F) (Left Tympanic) Resp 16 Wt 74.3 kg (163 lb 12.8 oz) SpO2 98% Objective Physical Exam Constitutional: She is oriented to person, place, and time and well-developed, well-nourished, and in no distress. HENT: Head: Normocephalic and atraumatic. Right Ear: Tympanic membrane, external ear and ear canal normal. Left Ear: Tympanic membrane, external ear and ear canal normal. Nose: Nose normal. Mouth/Throat: Uvula is midline, oropharynx is clear and moist and mucous membranes are normal. Neck: Normal range of motion. Neck supple. Cardiovascular: Normal rate, regular rhythm and normal heart sounds. Pulmonary/Chest: Effort normal and breath sounds normal. Harsh cough noted Lymphadenopathy: She has no cervical adenopathy. Neurological: She is alert and oriented to person, place, and time. Skin: Skin is warm and dry. Psychiatric: Affect and judgment normal. Nursing note and vitals reviewed. ASSESSMENT/PLAN: 1. Acute bronchitis, unspecified organism - ICD9: 466.0, ICD10: J20.9 Tx with prednisone, tessalon, and doxycycline. I also had her make an appt to est with a primary doctor as she does not have one. Discussed with patient concerning symptoms to go to the emergency department or follow up here. Pt agreeable with this plan. Naveen Avina PA-C Referring Provider: SELF [200] Allergies As of Date: 06/24/2018 (No Known Allergies) Date Reviewed: 06/24/2018 Reviewed by: Ju Nelson Ma - Fully Assessed Reason for Visit: Cough [28] Primary Visit Diagnosis:Acute bronchitis, unspecified organism [J20.9] Order(s):predniSONE (DELTASONE) 20 mg tabletTake 2 tablets by mouth once daily for 5 days.Disp: 10 tabletRfl: 0 benzonatate (TESSALON PERLE) 100 mg capsuleTake 2 capsules by mouth three times daily as needed.Disp: 30 capsuleRfl: 0 doxycycline (VIBRA-TABS) 100 mg tabletTake 1 tablet by mouth twice daily for 10 days.Disp: 20 tabletRfl: 0 Prescriptions as of 06/24/2018 Sig: PREDNISONE 20 MG TABLET Take 2 tablets by mouth once * BENZONATATE 100 MG CAPSULE Take 2 capsules by mouth thre* DOXYCYCLINE HYCLATE 100 MG TA* Take 1 tablet by mouth twice * Problem List As Of Date: 06/24/2018 (None) Prescriptions ordered this encounter Disp Refills Start End PREDNISONE 20 MG TABLET 10 t* 0 06/24/2018 06/29/2018 Route: ORAL Sig: Take 2 tablets by mouth once daily for 5 days. BENZONATATE 100 MG CAPSULE 30 c* 0 06/24/2018 Route: ORAL Sig: Take 2 capsules by mouth three times daily as needed. DOXYCYCLINE HYCLATE 100 MG TABLET 20 t* 0 06/24/2018 07/04/2018 Route: ORAL Sig: Take 1 tablet by mouth twice daily for 10 days. Encounter Status:Closed by NAVEEN AVINA PA-C on 06/24/18 EMERGENCY DEPARTMENT Observed: 04/04/2018 Status: F Source: [facility] SUMMARY 4:43 PM [facility] REPOSITORY [facility] Medical Records Department [address] [place] [address] Emergency Department Summary 03/30/18 0830 MR#: [id number] Acct: [id number] Name: JOS MCCALL Rep #: [id number] : 1965 52 From: Harshad Mcgowan DO PCP: Care Physician, No Primary Status: DEP ER - ER Visit Summary Date of Service: 03/30/18 Chief Complaint: Bilateral forearm pain History of Present Illness: The patient is a 52 F who I saw back in November of this year. I diagnosed her with right forearm tendinitis. She followed up with orthopedic surgery and did occupational therapy as well as had an MRI which demonstrates bicipital tendinitis and a ganglion cyst. She states she was no better and orthopedics (Dr. Bartlett) referred her to [facility]. She states that every time she called the [facility] she did not get anybody therefore she has not made an appointment. 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 Patient states now the left forearm is hurting her. She filled the prescription for tramadol on 03/23. She was taking ibuprofen. No known renal disorders. Physical Examination: Afebrile vital signs are stable Gen: Well-nourished well-developed Head: Normocephalic atraumatic Eyes: Perrl EOMI ENT: TMs clear no rhinorrhea moist mucous membranes Neck: Supple no lymphadenopathy no JVD nontender CVS: Regular rate rhythm no murmurs normal S1-S2 Respiratory: No distress clear to auscultation bilaterally chest nontender Abdomen: Soft nontender nondistended normal bowel sounds no masses Back: Nontender Extremity: Bilateral anterior forearm tenderness to palpation. There is some palpable swelling right proximal forearm consistent with her ganglion cyst. Skin: Normal color no rash Neuro: alert orientated 3 CN II-XII intact normal strength sensation reflexes gait cerebellar Psych: Normal affect normal mood Test Results: None indicated in the emergency setting Emergency Department Course and Treatment: This is a chronic problem. This is not appearing to be any type of emergent situation. I will write for the patient to have some Celebrex. The patient can continue her tramadol. Patient is encouraged to call the [facility] and schedule an appointment during the regular business hours. Impression: 1. Bilateral forearm tendinitis This note was generated with [employer] dictation software. It may contain incorrect words, spelling, and punctuation that were not noted in review of the chart prior to signing ED Disposition - Plan for ED Patient: Disposition: Home or Assisted Living Chief Complaint: Upper Extremity Injury Instructions: ED Cyst Ganglion Prescriptions: Celecoxib [Celebrex] 200 mg PO DAILY #14 cap Additional Instructions: Please call [facility] to arrange your follow-up. What to do if you have Problems For any increased pain, shortness of breath, bleeding, nausea or vomiting, chest pain, or any unexpected problems, contact your Primary Care Provider. Call [facility] ([phone]) or report to the closest Emergency Room. Call 911 if necessary. 04/04/18 1643 <Electronically signed by Harshad Mcgowan DO> Date Harshad Mcgowan DO Cosigner Signature (If Indicated): Date CC: No Primary Care Physician DOWNTIME REPORT Observed: 03/15/2018 Status: F Source: [facility] 1:58 PM [facility] REPOSITORY [facility] Medical Records Department [address] [place] [address] Downtime Report MR#: [id number] Acct: [id number] Name: JOS MCCALL Rep #: [id number] : 1965 52 From: Bravo Chamberlain MD PCP: Care Physician, No Primary Status: DEP ER This patient was seen during an EMR downtime February 27, 2018 - March 06, 2018. This patient may have a combination of paper and electronic documentation or all paper documentation. All documentation is viewable within the e-chart portion of [employer] for each patient visit. OT D/C OF NON Observed: 03/07/2018 Status: F Source: [place] RETURNING PT 1:29 PM [facility] REPOSITORY [facility] Occupational Therapy [facility] [address] [place] [address] Fax REHABILITATION SERVICES DISCHARGE SUMMARY MR#: [id number] Acct: [id number] Name: JOS MCCALL Rep #: [id number] : 1965 52 From: Mary MARCUS CHT Referring Dr.: Gurmeet Bartlett DO Status: REG RCR Eval Date: Discharge Date: HP - Discharge Summary - Patient Information JOS MCCALL was seen in my office for initial evaluation on 01/30/18. The following Plan of Care was established for this patient: Initial Frequency: 2x /Week Initial Duration: 6 Weeks Plan: cont heat and ice , stretching as tolerated - Anticipated Interventions Anticipated Interventions: A/AAROM/PROM, Strengthening, Edema Control, Triggerpoint Release, Desensitization, Modalities, Orthoses, Ergonomic Education This patient was last seen in our office 12/29/17. Pertinent comments regarding their Occupational therapy will appear below: pt was seen for 4 visits- therapy attempted use of modalities to decrease pts pain- pt was painful with light stretch and palpation of volar and dorsal sides of right forearm- pt was to return to for further testing- pt has not returned at this time and is now D/C At this point I will be discontinuing this patient from occupational therapy. I would be happy to see this patient again in the future if found appropriate by the physician. Thank you! GISSEL Tiwari/Eddie, SCOTTT <Electronically signed by Mary CHAUHAN/SCOTT MorganT> 03/07/18 1329 CC: No Primary Care Physician; Gurmeet Bartlett DO MK Signed ABDOMEN/PELVIS WITHOUT Observed: 03/06/2018 Status: F Source: [place] CONT 10:36 AM [facility] REPOSITORY [facility] Imaging Services [address] [place] [address] Abdomen/Pelvis without Cont MR#: [id number] Acct: [id number] Name: JOS MCCALL Rep #: [id number] : 1965 F 52 From: Romeo Michael MD PCP: Care Physician, No Primary Status: [facility] Study: Abdomen/Pelvis without Cont Date of Exam: 03/02/18 Exam# [id number] Ordering Dr: Kelly Zhu MD STUDY: CT ABDOMEN AND PELVIS WITHOUT CONTRAST REASON FOR EXAM: Female, 52 years old. Left flank pain. RADIATION DOSAGE (If Supplied By Facility): CTDIvol = ( 14.35 ) mGy, DLP = ( 682.57 ) mGycm TECHNIQUE: Transaxial images were obtained from the dome of the diaphragm to the symphysis pubis without oral contrast, and without intravenous contrast. Sagittal and coronal images were reconstructed. Individualized dose optimization techniques were used for this CT. COMPARISON: None. FINDINGS: The visualized lung bases are unremarkable. The visualized portions of the heart are within normal limits. Hepatomegaly. Normal gallbladder and extrahepatic biliary system. Normal spleen. Normal pancreas. Normal bilateral adrenal glands. Normal right kidney. Normal left kidney. Normal visualized stomach. Normal small intestine. Normal colon. The appendix is visualized and appears normal. Normal abdominal aorta. Normal inferior vena cava. Normal retroperitoneum. Normal urinary bladder. Normal abdominal wall. There are diffuse degenerative changes of the visualized lumbar spine. CT/Abdomen/Pelvis without Cont IMPRESSION: No evidence of acute intestinal pathology or acute obstructive uropathy. Hepatomegaly. 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 How was Urine Obtained? CLEAN CATCH TYPE CODE TESTS RESULT OUT OF RANGE REFERENCE UNITS LAB L400.3000 Yellow COLOR Normal Yellow LAB L400.3050 Clear Sl Normal CLARITY Cldy LAB L400.3200 Normal mg/dl Normal GLUCOSE, UR NEGATIVE LAB L400.3300 Negative mg/dL Normal BILIRUBIN URINE Negative LAB L400.3400 Negative mg/dl Normal KETONE UR Negative LAB L400.3465 1.002-1.030 Normal SP.GR. DIPSTX 1.020 LAB L400.3550 5.0 - 8.0 pH UR Normal 6.0 LAB L400.3600 Negative mg/dl PROT Normal DIPSTX Negative LAB L400.3700 Normal mg/dl Normal UROBILI Normal LAB L400.3750 Negative Normal NITRITE UR Negative LAB L400.3780 Negative /ul High 10 OCCULT BLOOD-UR LAB L400.3800 Negative /ul LEUK Normal ESTERASE Negative LAB L400.4050 0-5 /hpf WBC 0 Normal SEEN LAB L400.4100 0-5 /hpf Normal RBC-UA 0-5 SEEN LAB L400.4150 5-10 /hpf SQUAM Normal EPI 10-25 SEEN LAB L400.4300 None Seen /hpf 0 Normal BACTERIA SEEN LAB L400.4350 <or=2+ /hpf 0 Normal MUCUS, URINE SEEN Performed By: #### L400.0001 #### [facility] [address] [place], [place], [id number] CBC W/DIFF, AUTOMATED Collected: 03/02/2018 Status: F Source: [place] 12:00 AM [facility] REPOSITORY Order Comment: RESULT(S) PREVIOUSLY REPORTED ON MANUAL REQUISITION DURING DOWNTIME. TYPE CODE TESTS RESULT OUT OF RANGE REFERENCE UNITS LAB L100.1000 4.4-11.0 K/mm3 Normal WBC 8.1 LAB L100.1200 4.2-5.4 M/mm3 Normal RBC 4.21 LAB L100.1300 12.0-15.0 g/dl Normal HGB 13.5 LAB L100.1400 37-47 % Normal HCT 40.3 LAB L100.1500 81-99 fL Normal MCV 95.7 LAB L100.1600 27.0-32.0 pg High MCH 32.1 LAB L100.1700 32-36 g/gl Normal MCHC 33.5 LAB L100.1810 11.6-14.6 % Normal RDW CV 12.6 LAB L100.1820 35.1-43.9 fl Normal RDW SD 43.5 LAB L100.1900 150-450 K/mm3 Normal PLT 251 LAB L100.2000 6.2-12.0 fl Normal MPV 8.8 LAB L100.2100 47-70 % High NEUT% 72.8 LAB L100.2200 19-41 % Normal LY% 22.3 LAB L100.2300 0-10 % Normal MONO% 4.1 LAB L100.2400 0-5 % Normal EO% 0.6 LAB L100.2500 0-1 % Normal BASO% 0.1 LAB L100.2550 0.0-0.9 % Normal IM GRAN % 0.100 Result Comment: IG% - Immature Granulocytes (promyelocytes, myelocytes and metamyelocytes) > 1% indicates that a LEFT SHIFT is Present. LAB L100.2620 2.0-7.7 X10 3/uL Normal Absolute Neut 5.9 LAB L100.2720 0.83-4.51 X10 3/ul Normal Absolute Lymph 1.80 Performed By: #### L100.0100 #### [facility] [address] [place], [address] BASIC METABOLIC Collected: 03/02/2018 Status: F Source: [facility] PROFILE ([facility]) 12:00 AM [facility] REPOSITORY Order Comment: RESULT(S) PREVIOUSLY REPORTED ON MANUAL REQUISITION DURING DOWNTIME. TYPE CODE TESTS RESULT OUT OF RANGE REFERENCE UNITS LAB L501.0100 74-106 mg/dL Normal GLU 102 Result Comment: Fasting Glucose result from 100 to 125 mg/dL suggests IMPAIRED HOMEOSTASIS per A.D.A. criteria. Please note revised GLUCOSE reference range effective 2017. LAB L501.1000 7-18 mg/dL Normal BUN 11 LAB L501.1100 0.55-1.02 mg/dL Normal CREAT,SERUM 0.68 Result Comment: The validity of the calculated GFR AND GFRAA in patients over 70 years has not been determined. Clinical correlation is essential. LAB L501.1110 >60 mL/min Normal EST GFR 97 LAB L501.1115 >60 mL/min Normal EST GFR - AA 118 LAB L501.1300 10-20 RATIO Normal BUN/CRE 16.2 LAB L501.2200 8.5-10.1 mg/dL Normal CA 9.0 LAB L501.5300 136-145 mmol/L Normal NA 143 LAB L501.5600 3.5-5.1 mmol/L Normal K 4.1 LAB L501.5900 98-107 mmol/L High CL 108 LAB L501.6100 21.0-32.0 mmol/L Normal CO2 30.0 LAB L501.6200 5-15 Normal GAP 5 Performed By: #### L500.2500 #### [facility] [address] [place], [address] ORTHOPEDIC VISIT Observed: 02/20/2018 Status: F Source: [place] REPORT 5:42 PM [facility] REPOSITORY [facility] [address] [place] [address] [address] [place] [address] OFFICE VISIT Date of Service: 02/08/18 MR#: [id number] Acct: [id number] Name: JOS MCCALL Rep #: [id number] : 1965 Provider: Gurmeet Bartlett DO Age/Sex: 52/F [place] [facility] [place] [place] Status: Signed Intake Intake Visit Reasons: RIGHT ELBOW Is patient in pain?: Yes Allergies aspirin Adverse Reaction (Verified 02/08/18 10:05) Unknown Medications Ibuprofen [Motrin] 800 mg PO TID PRN PRN #20 tab 12/19/17 [Rx] meloxicam 15 mg tablet 15 mg PO QDAY #30 tab 02/08/18 [Rx] tramadol 50 mg tablet 50 mg PO Q6H PRN #60 tab 02/08/18 [Rx] PFSH Surgical History Hx of tubal ligation (Inactive) Social History Smoking Status: Current every day smoker HPI RIGHT ELBOW: Details: JOS MCCALL is a 52 year old F here today for continued right elbow pain. She complains of pain into her lateral forearm. Patient rates her pain at a 7/10 currently. Patient completed occupational therapy but was discharged due to no improvement. She had a custom splint made to help decrease elbow flexion. Patient complains of a shooting pain into her fingertips. She denies any pain medications. Denies numbness, tingling or other associated symptoms. ROS Const Reports system reviewed and no additional complaints, except as docu Eyes Reports system reviewed and no additional complaints, except as docu ENT Reports system reviewed and no additional complaints, except as docu Card Reports system reviewed and no additional complaints, except as docu Resp Reports system reviewed and no additional complaints, except as docu GI Reports system reviewed and no additional complaints, except as docu Reports system reviewed and no additional complaints, except as docu Musc Reports joint pain, Reports stiffness, Reports muscle weakness, Reports limited joint movement Skin/Breast Reports system reviewed and no additional complaints, except as docu Neuro Yes system reviewed and no additional complaints, except as docu Psych Reports system reviewed and no additional complaints, except as docu Endo Reports system reviewed and no additional complaints, except as docu Ortho Exam Right Elbow Contralateral Normal: Yes Sensation: Radial: I, Ulnar: I, Median: I ELBOW: Patient otherwise alert oriented 3 no acute distress. Appropriate eye contact and affect. Otherwise intact from the C5-T2 distributions. She has positive pulses. Patient continues to be tender palpation across the biceps with soft tissue swelling over the antecubital fossa which may be getting some mass-effect. She continues have pain to range of motion specifically towards moving into extension due to the tendinopathy from her MRI. Patient is currently not Tolerating and tolerating physical therapy. Assessment AND Plan Problems 1. Biceps tendinopathy of right upper extremity M67.921 2. Right elbow pain M25.521 3. Ganglion, right elbow M67.421 Plan a/p: At this point time to the fact the patient continues to have pain with occupational therapy I am going to recommend that she be placed into a posterior splint for soft tissue rest. Also going to provide her with the contact information for [facility] and the [facility] for evaluation. I am somewhat of a loss in terms of how to treat. Patient has a known history of insertional tendinopathy to the distal biceps tendon with associated soft tissue ganglion mass anteriorly. I would expect this to be that problematic but again aside from conservative treatment how to treat operatively is really beyond my expertise. I have never treated anything short of acute rupture the surgical intervention. My recommendation is to follow-up with an elbow expert and allow them to make an appropriate decision model at this point time. Patient has been encouraged to come out of the brace at least a few times per day to move her elbow slightly. Otherwise soft tissue graft would be appropriate. Work note provided. I will see the patient back at this point time as needed. Patient has been encouraged to go to the hospital to get copies of her plain x-rays and MRI for future surgical consideration by next treating physician. Coding Level of Care Code Off vis,est,level 3 Diagnoses Biceps tendinopathy of right upper extremity M67.921 Right elbow pain M25.521 Ganglion, right elbow M67.421 02/20/18 1742 <Electronically signed by Gurmeet Bartlett DO> Date Gurmeet Bartlett DO Cosigner Signature: Date (if applicable) CC: ORTHOPEDIC VISIT Observed: 02/06/2018 Status: F Source: [place] REPORT 9:05 AM [facility] [address] [place] [address] OFFICE VISIT Date of Service: 01/25/18 MR#: [id number] Acct: [id number] Name: JOS MCCALL Rep #: [id number] : 1965 Provider: Gurmeet Bartlett DO Age/Sex: 52/F [place] [facility] [place] [place] Status: Signed Intake Intake Visit Reasons: right shoulder Is patient in pain?: Yes Allergies aspirin Adverse Reaction (Verified 01/25/18 09:14) Unknown Medications Ibuprofen [Motrin] 800 mg PO TID PRN PRN #20 tab 12/19/17 [Rx] PFSH Surgical History Hx of tubal ligation (Inactive) Social History Smoking Status: Current every day smoker HPI right shoulder: Details: JOS MCCALL is a 52 year old F here today for a followup on her right shoulder MRI. Patient notes that she continues to have right forearm pain. She denies any changes in her symptoms since her last appointment. She had an MRI which is here for review. ROS Const Reports system reviewed and no additional complaints, except as docu Eyes Reports system reviewed and no additional complaints, except as docu ENT Reports system reviewed and no additional complaints, except as docu Card Reports system reviewed and no additional complaints, except as docu Resp Reports system reviewed and no additional complaints, except as docu GI Reports system reviewed and no additional complaints, except as docu Reports system reviewed and no additional complaints, except as docu Musc Reports joint pain, Reports muscle weakness Skin/Breast Reports system reviewed and no additional complaints, except as docu Neuro Yes system reviewed and no additional complaints, except as docu Psych Reports system reviewed and no additional complaints, except as docu Endo Reports system reviewed and no additional complaints, except as docu Ortho Exam Right Elbow Contralateral Normal: Yes ROM: Yes Extension 0 (-5) Test: No Valgus Stress Test, No Varus Stress Test, No TTP Medial Epicondyle, No TTP Lateral Epicondyle, No Pain w/ resist wrist ext, No Pain w/ resist wrist flex, No Pain w/ resist pronation, No Pain w/ resist 3rd dig ext, No Thenar Atrophy, No Ulnar Nerve Subluxation, No Milking Sign Sensation: Radial: I, Ulnar: I, Median: I Motor: Elbow Extension: 5, Elbow Flexion: 5, EPL: 5, FDP-2: 5, 1st Dorsal Interosseous: 5 ELBOW: Patient remains distally neurovascular intact. She has +2 pulses. Patient continues have pain moving into terminal extension. However flexion is maintained at 140-150. Patient remains tender palpation across the distal biceps and has a soft tissue swelling noted to that area. There is no obvious fluctuance or signs of infection. She continues have pain with resisted prone supination. No extra adenopathy. MRI: Evaluated by myself with patient-patient shows partial tearing and distal tendon biceps tendinopathy. She also has a ganglion formation within the median fossa or the antecubital fossa of the elbow at this point time. It appears to be coming off more distally as if either associated with a tendon sheath type change. Does not appear to be pathologic this point time it may be contributing some of the mass-effect. But the patient clearly has insertional edema at the right biceps tuberosity of the proximal radius. Left Elbow Swelling: No Skin/Wound: Yes CDI Contralateral Normal: Yes ROM: Yes Flexion 0-140, Extension 0, Supination 0-90 and Pronation 0-80 Sensation: Radial: I, Ulnar: I, Median: I Motor: Elbow Extension: 5, Elbow Flexion: 5, EPL: 5, FDP-2: 5, 1st Dorsal Interosseous: 5 Assessment AND Plan Problems 1. Right elbow pain M25.521 2. Ganglion, right elbow M67.421 3. Biceps tendinopathy of right upper extremity M67.921 Plan Assessment: Right elbow distal biceps tendinopathy with stress reaction to the biceps tuberosity, associated right elbow ganglion. Plan: At this point time I discussed the patient her MRI findings and the plan. I told the patient really really need to be working on better range of motion. I will send the patient occupational therapy to work on eccentric motor strengthening and see what the ultimate resolution will be. Typically for people with proximal biceps tendinopathy recently released the biceps but obviously that is not practical with a distal biceps tendon issue. I recommendation at this point time get his physical therapy and evaluation. If the patient were to go on to rupture the distal biceps tendon and she would obviously need repair. At this point time I think the biceps is the bigger issue than the ganglion I think this is giving her some soft tissue change which is concerning for the patient but in terms of the big scope things the biceps tendinopathy is a large contributor to her pain. The patient will remain symptomatic I will either consider the referral to my partner for operative intervention as I will be leaving the practice and will not be able to get long- term follow-up versus giving the patient a referral up to [facility] as I have never seen or treated the patient with distal biceps tendinopathy and operative sense. For now PT OT will see the patient back 6-8 weeks Coding Level of Care Code Off vis,est,level 4 Diagnoses Right elbow pain M25.521 Ganglion, right elbow M67.421 Biceps tendinopathy of right upper extremity M67.921 02/06/18 0905 <Electronically signed by Gurmeet Bartlett DO> Date Gurmeet Bartlett DO Cosigner Signature: Date (if applicable) CC: OT GENERAL EVALUATION Observed: 01/30/2018 Status: F Source: [place] 10:41 AM [facility] REPOSITORY [facility] Occupational Therapy [facility] [address] [place], [place] [address] Fax REHABILITATION SERVICES INITIAL EVALUATION MR#: [id number] Acct: [id number] Name: JOS MCCALL Rep #: [id number] : 1965 52 From: Mary CHAUHAN/SCOTT MorganT Referring Dr.: Gurmeet Bartlett DO Status: REG RCR Insurance: [employer] [facility] Eval Date: SELF PAY INSURANCE Patient's Visit Information JOS MCCALL is a 52 year old F, referred to Occupational Therapy by Gurmeet Bartlett DO, with a diagnosis of right forearm swelling. Date of Evaluation: 01/30/18 Occupational Therapist: GISSEL Tiwari/Eddie, CHT - Subjective Subjective: This 52 year old female was seen for a inital OT eval with dx of right forearm swelling- tendonities of flexors- pt states she has had pain in her right forearm for 4 months at least. Pt states nothing makes her arm feel better and if moved in the wrong way the movement makes pt sick to her stomach. Pt works at [employer] and works 40 hours a week and with need to lift 35-40#. pt is left handed. pt states the pain meds do not help- pt states she does ice her forearm once a day. - Pain right 7 Pain Intensity Range: 5, 9 - ROM Elbow: right -50/110 left 0/145 Forearm: right sup 35 pronation 45 left supination 75 pronation 75 Wrist: right 45/15 left WNL CMC: Right/left WNL - Strength Account Support Associate: Right 5# left 65# Lateral Pinch: right 2# left 10# Tripod Pinch: right unable left 10# - DASH-Disabilities of Arm, Shoulder AND Hand DASH Sum: 115 - Goals Goal:: pt will demo a increase in right bill clerk strength to 40# or greater to increase pts ind. with BADLs and IADLs by D/C. pt will demo a increase in lateral/tripod pinch strength by 4# to increase pts ind. with BADLs and IADLS by D/C Goal:: PT will demo a increase in right elbow flex/ext equal to left to increase pts ind. with ADLs and IADLS by d/c. pt will demo a increase in right forearm SUP/PRonation to WNL to increase pts ind. with IADL tasks as turing a singletary by d/c Goal:: pt will report pain no greater than 2/10 with performance of BADLS and IADLs by d/c - Rehabilitation General Assessment: Pt demo with limited right forearm ROM, limited right elbow ROM and pain pain. pt demo with touch tender throughout the right volar forearm. pts symptoms are consistent with biceps/ flexor tendonitis-PT would benefit from further skilled OTR/L, CHT services 2x week for 6 weeks to decrease pts pain and increase pts ROM and progress to PRE to return pt to PLOF. If pt does not improve after 4 weeks pt will reurn to for further assesment. Rehabilitation Potential: Good - Anticipated Interventions Anticipated Interventions: A/AAROM/PROM, Strengthening, Edema Control, Triggerpoint Release, Desensitization, Modalities, Orthoses, Ergonomic Education - Visit Plan Frequency: 2x /Week Duration: 6 Weeks General Plan: 2x week for 6 weeks Therapy will initiate Modalities as US, Ice and work into ROM- and PRE- pt was instructed in ICe for 15 min 3x a day- pt given instructions on getting a arm sleeve to wear during the day. Ice 3 x a day- pt will be instructed in work ergo to adj. her occupations to limit flexor stress. TEXT: Thank you for the opportunity to evaluate your patient. For Medicare and Medicare HMO plans, please review the plan of care and approve it. It will need to be FAXED BACK to us at [phone] for Medicare purposes. Please let me know if there are questions or concerns regarding this plan of care. Physician Signature: Date: <Electronically signed by Mary Almazan OTR/Eddie, CHT> 01/30/18 1041 CC: No Primary Care Physician; Gurmeet Bartlett DO MK Signed For Medicare only, by signing this I certify the plan of care. Physicians Signature Date UPPER EXT JOINT Observed: 01/20/2018 Status: F Source: [place] ONLY W/WO CONT 12:00 AM [facility] REPOSITORY [facility] Imaging Services [address] [place] [address] Upper Ext Joint Only W/WO Cont MR#: [id number] Acct: [id number] Name: JOS MCCALL Rep #: [id number] : 1965 F 52 From: David Dukes MD PCP: Care Physician, No Primary Status: REG CLI Study: Upper Ext Joint Only W/WO Cont Date of Exam: 01/20/18 Exam# [id number] Ordering Dr: Gurmeet Batrlett DO STUDY: MRI RIGHT ELBOW WITHOUT AND WITH CONTRAST REASON FOR EXAM: Female, 52 years old. Pain and swelling of the proximal forearm. TECHNIQUE: Standardized fat and water weighted pulse sequences were obtained in all 3 orthogonal planes prior to and following intravenous administration of 8 mL Gadavist. COMPARISON: CT December 19, 2017. FINDINGS: Normal radio-capitellum articulation. Normal radial collateral ligamentous complex. There is tendinosis with tendon thickening of the common extensor tendon. Normal ulnotrochlear articulation. Normal ulnar collateral ligamentous complex. Normal common flexor tendon. There is small joint effusion. The cubital tunnel is normal, with a normal ulnar nerve. There is tendinosis with thickening of the distal biceps tendon, but without a demonstrated tendon tear, series 6 images 09/18 and . There is adjacent edema and enhancement, series 10 images 18/36 through . There are 1.2 and 1.1 cm nonenhancing fluid signal intensity regions consistent with component of ganglion, series 6 image 9/24 and series 7 image 16/30. There is marrow edema with T2 signal hyperintensity and enhancement of the radial tuberosity, series 6 image 14/24. Normal lacertus fibrosis. Normal brachialis musculotendinous insertion. Normal triceps tendon and teno-osseous insertion. Normal olecranon process. The visualized distal humerus, proximal radius, and ulna are normal. The visualized muscles of the distal arm and proximal forearm are normal. There is no dominant mass to correspond to the area of palpable abnormality as noted by the patient on the radial aspect of the proximal forearm. MRI/Upper Ext Joint Only W/WO Cont IMPRESSION: Biceps tendinosis. There is adjacent soft tissue swelling with ganglion cyst. Stress injury of the radial tuberosity. Electronically Signed: David Dukes MD at 8:50 EDT , Service support , CC: No Primary Care Physician; Gurmeet Bartlett DO Build Automation Engineer: Signed ORTHOPEDIC VISIT Observed: 01/05/2018 Status: F Source: [place] REPORT 9:51 AM [facility] [address] [place] [address] OFFICE VISIT Date of Service: 01/04/18 MR#: [id number] Acct: [id number] Name: JOS MCCALL Rep #: [id number] : 1965 Provider: Gurmeet Bartlett DO Age/Sex: 52/F Location[place] [facility] [place] [place] Status: Signed Intake Intake Visit Reasons: RIGHT ARM Is patient in pain?: Yes Pain scale (1-10): 9 Allergies aspirin Adverse Reaction (Verified 12/19/17 10:33) Unknown Medications Ibuprofen [Motrin] 800 mg PO TID PRN PRN #20 tab 12/19/17 [Rx] PFSH Surgical History Hx of tubal ligation (Inactive) Social History Smoking Status: Current every day smoker HPI RIGHT ARM: Details: JOS MCCALL is a 52 year old F here today for right forearm pain and swelling. She states that she has no known injury to the elbow or forearm but her pain was so severe she went to the ED last week. They did a ct scan and instructed her to keep the ceci bandage on and f/u with ortho. Today she has limited sup/pro, elbow flexion and a bump in the proximal forearm. Denies numbness, tingling or other associated symptoms. She has been using otc ibuprofen with no relief. Ice is minimally helpful and she tried an epsom salt bath with no relief. ROS Musc Reports joint pain, Reports joint swelling, Reports radiating pain into limb, Reports stiffness, Reports as per HPI, Reports limited joint movement Ortho Exam Left Wrist/Hand Skin/Wound: Yes CDI Contralateral Normal: Yes A1 sree trigger: No Left Wrist: Yes ROM-Extension 0-60, Yes ROM-Flexion 0-80, Yes ROM-Pronation 0-80 and Yes ROM-Supination 0-90 Motor: EPL: 5, FDP-2: 5, 1st Dorsal Interosseous: 5, APB: 5 Sensation: Radial: I, Ulnar: I, Median: I Right Elbow Test: No Valgus Stress Test, No Varus Stress Test, No TTP Medial Epicondyle, No TTP Lateral Epicondyle, No Pain w/ resist wrist ext, No Pain w/ resist wrist flex, No Pain w/ resist pronation, No Pain w/ resist 3rd dig ext, No Thenar Atrophy, No Ulnar Nerve Subluxation, No Milking Sign Sensation: Radial: I, Ulnar: I, Median: I Motor: Elbow Extension: 5, Elbow Flexion: 5, EPL: 5, FDP-2: 5, 1st Dorsal Interosseous: 5 ELBOW: Patient is alert and oriented 3 no acute distress appropriate eye contact and affect. Otherwise intact the C5-T2 distributions. She has 2 pulses. She has no extra adenopathy. She has 155 of elbow flexion as she moves it moves into extension about 45 she starts to have pain. Patient guards with prone supination around the forearm. She reports having pain really over the antecubital fossa 2 fingerbreadths below the elbow crease and the insertion site of the biceps tendon. However the biceps tendon is palpable. Patient does have some pain across the biceps tendon with palpation also across the supinator and pronator of the proximal aspect of the forearm. She does appear to have a soft tissue change through that area there is no signs of any dimpling there is no signs of needle entry. Patient was taken out of her sling and told not to wear it any longer. X-rays: NCT: Evaluated myself patient-no obvious bony abnormalities could be appreciated no loose bodies or signs of abscess Left Elbow Swelling: No Skin/Wound: Yes CDI Contralateral Normal: Yes ROM: Yes Flexion 0-140, Extension 0, Supination 0-90 and Pronation 0-80 Sensation: Radial: I, Ulnar: I, Median: I Motor: Elbow Extension: 5, Elbow Flexion: 5, EPL: 5, FDP-2: 5, 1st Dorsal Interosseous: 5 Assessment AND Plan Problems 1. Soft tissue mass M79.9 2. Right elbow pain M25.521 Plan Assessment: Right elbow pain right elbow and proximal forearm soft tissue mass over the antecubital fossa. Plan: At this point time patient's been to the emergency room a few times for this problem as had a CT scan that was really unremarkable for abscess formation. However my recommendation is for MRI with and without contrast to delineate the soft tissues better to include the pronator supinator and biceps tendon insertion sites. Will delineate whether or not there actually is a soft tissue tumor through that area that is otherwise not well delineated by CT examination. I recommendation is also for the patient to follow-up with occupational therapy to work on range of motion as she has been wearing a splint which is can be problematic in the long-term. His occupational therapy prescription has been provided. Patient continue with anti-inflammatories as tolerated. Follow-up after MRI completed. Any major issues return. Orders Orders: Coding Level of Care Code Off vis,new,level 3 Diagnoses Soft tissue mass M79.9 Right elbow pain M25.521 01/05/18 0951 <Electronically signed by Gurmeet Bartlett DO> Date Gurmeet Bartlett DO Cosigner Signature: Date (if applicable) CC: EMERGENCY DEPARTMENT Observed: 12/20/2017 Status: F Source: [place] SUMMARY 9:23 PM [facility] REPOSITORY [facility] Medical Records Department [address] [place] [address] Emergency Department Summary 12/19/17 1403 MR#: [id number] Acct: [id number] Name: JOS MCCALL Rep #: [id number] : 1965 52 From: Harshad Mcgowan DO PCP: Care Physician, No Primary Status: DEP ER - ER Visit Summary Date of Service: 12/19/17 Chief Complaint: Right elbow pain History of Present Illness: The patient is a 52 F days for the past month she has had pain in her right forearm. She notes that there feels some swelling in the medial aspect of the anterior right elbow. She has not followed up with anybody. 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 Eyes any IV drug use. Physical Examination: Afebrile vital signs are stable Gen: Well-nourished well-developed Head: Normocephalic atraumatic Eyes: Perrl EOMI ENT: TMs clear no rhinorrhea moist mucous membranes Neck: Supple no lymphadenopathy no JVD nontender CVS: Regular rate rhythm no murmurs normal S1-S2 Respiratory: No distress clear to auscultation bilaterally chest nontender Abdomen: Soft nontender nondistended normal bowel sounds no masses Back: Nontender Extremity: There is tenderness to palpation over the medial aspect of the anterior right forearm. There appears to be a fullness. There is no over line erythema. No fluctuance. No breaks in the skin. There is no lymphangitis. Skin: Normal color no rash Neuro: alert orientated 3 CN II-XII intact normal strength sensation reflexes gait cerebellar Psych: Normal affect normal mood Test Results: CT did not demonstrate any focal abscess or fluid collection. Emergency Department Course and Treatment: We will treat this as a tendinitis. She will follow-up if not improving. Impression: 1. Right elbow tendinitis This note was generated with ThemBidation software. It may contain incorrect words, spelling, and punctuation that were not noted in review of the chart prior to signing ED Disposition - Plan for ED Patient: Disposition: Home or Assisted Living Chief Complaint: Upper Extremity Injury Instructions: ED Epicondylitis Lateral Elbow Prescriptions: Ibuprofen [Motrin] 800 mg PO TID PRN PRN #20 tab PRN Reason: Pain Referrals: Care Physician,No Primary [Primary Care Provider] - Gurmeet Bartlett DO [STAFF PHYSICIAN] - (Call to arrange follow-up.) Additional Instructions: Although your instructions are for lateral epicondylitis I believe you have more of a medial epicondylitis. Unfortunately I do not have specific instructions for that but is essentially treated the same. What to do if you have Problems For any increased pain, shortness of breath, bleeding, nausea or vomiting, chest pain, or any unexpected problems, contact your Primary Care Provider. Call [facility] ([phone]) or report to the closest Emergency Room. Call 911 if necessary. 12/20/172122 <Electronically signed by Harshad Mcgowan DO> Date Harshad Mcgowan DO Cosigner Signature (If Indicated): Date CC: No Primary Care Physician CBC W/DIFF, AUTOMATED Collected: 12/19/2017 Status: F Source: [place] 11:44 AM [facility] REPOSITORY TYPE CODE TESTS RESULT OUT OF RANGE REFERENCE UNITS LAB L100.1000 4.4-11.0 K/mm3 Normal WBC 7.6 LAB L100.1200 4.2-5.4 M/mm3 Normal RBC 4.43 LAB L100.1300 12.0-15.0 g/dl Normal HGB 14.0 LAB L100.1400 37-47 % Normal HCT 42.0 LAB L100.1500 81-99 fL Normal MCV 94.8 LAB L100.1600 27.0-32.0 pg Normal MCH 31.6 LAB L100.1700 32-36 g/gl Normal MCHC 33.3 LAB L100.1810 11.6-14.6 % Normal RDW CV 13.5 LAB L100.1820 35.1-43.9 fl High RDW SD 45.1 LAB L100.1900 150-450 K/mm3 Normal PLT 292 LAB L100.2000 6.2-12.0 fl Normal MPV 8.5 LAB L100.2100 47-70 % Normal NEUT% 67.8 LAB L100.2200 19-41 % Normal LY% 23.2 LAB L100.2300 0-10 % Normal MONO% 8.1 LAB L100.2400 0-5 % Normal EO% 0.5 LAB L100.2500 0-1 % Normal BASO% 0.3 LAB L100.2550 0.0-0.9 % Normal IM GRAN % 0.100 Result Comment: IG% - Immature Granulocytes (promyelocytes, myelocytes and metamyelocytes) > 1% indicates that a LEFT SHIFT is Present. LAB L100.2620 2.0-7.7 X10 3/uL Normal Absolute Neut 5.2 LAB L100.2720 0.83-4.51 X10 3/ul Normal Absolute Lymph 1.77 Performed By: #### L100.0100 #### [facility] [address] [place], [address] BASIC METABOLIC Collected: 12/19/2017 Status: F Source: [place] PROFILE ([facility]) 11:44 AM [facility] REPOSITORY TYPE CODE TESTS RESULT OUT OF RANGE REFERENCE UNITS LAB L501.0100 74-106 mg/dL Normal GLU 99 Result Comment: Please note revised GLUCOSE reference range effective 2017. LAB L501.1000 7-18 mg/dL Normal BUN 10 LAB L501.1100 0.55-1.02 mg/dL Normal CREAT,SERUM 0.73 Result Comment: The validity of the calculated GFR AND GFRAA in patients over 70 years has not been determined. Clinical correlation is essential. LAB L501.1110 >60 mL/min Normal EST GFR 89 Result Comment: Non- GFR Calc LAB L501.1115 >60 mL/min Normal EST GFR - AA 107 Result Comment: GFR Calc LAB L501.1255 ml/min Normal Estimated CRCL 77.85 LAB L501.1300 10-20 RATIO Normal BUN/CRE 13.7 LAB L501.2200 8.5-10 mg/dL Normal .1 CA 9.2 LAB L501.5300 136-14 mmol/L Normal 5 NA 139 LAB L501.5600 3.5-5. mmol/L Normal 1 K 3.9 LAB L501.5900 98-107 mmol/L Normal CL 102 LAB L501.6100 21.0-3 mmol/L Normal 2.0 CO2 31.0 LAB L501.6200 5-15 Normal GAP 6 Performed By: #### L500.2500 #### [facility] [address] [place], [address] EXTREMITY UPPER WITH Observed: 12/19/2017 Status: F Source: [place] CONTRAST 11:25 AM [facility] REPOSITORY [facility] Imaging Services [address] [place] [address] Extremity Upper WITH Contrast MR#: [id number] Acct: [id number] Name: JOS MCCALL Rep #: [id number] : 1965 F 52 From: Michael Harris MD PCP: Care Physician, No Primary Status: REG ER Study: Extremity Upper WITH Contrast Date of Exam: 12/19/17 Exam# [id number] Ordering Dr: Harshad Mcgowan DO STUDY: CT RIGHT UPPER EXTREMITY WITH CONTRAST REASON FOR EXAM: Right arm pain and swelling for one month, question abscess. TECHNIQUE: The patient was scanned in a multi detector CT scanner. High resolution transaxial imaging was performed during intravenous administration of 100 mL of Isovue-300. Sagittal and coronal images were reconstructed. Individualized dose optimization techniques were used for this CT. COMPARISON: Radiographs 11/11/2017. FINDINGS: Normal glenohumeral articulation. Normal glenoid rim, neck and visualized scapula. Normal humeral humerus. Normal visualized lateral clavicle. Normal visualized acromioclavicular articulation. Normal radio-capitellum and ulnotrochlear articulations. Normal radius and ulna. Normal visualized muscles and soft tissue structures. There is no demonstrated focal fluid collection to indicate soft tissue abscess. There is no abnormal contrast enhancement. CT/Extremity Upper WITH Contrast IMPRESSION: Unremarkable CT of the right upper extremity without demonstrated soft tissue abscess. Electronically Signed: Michael Harris MD at 13:30 EDT Tel , Service support , CC: No Primary Care Physician; Harshad Mcgowan DO Build Automation Engineer: Signed DISCHARGE INSTRUCTION Observed: 11/11/2017 Status: F Source: [place] 5:43 PM [facility] REPOSITORY [facility] Medical Records Department [address] [place] [address] Discharge Instruction 11/11/171741 MR#: [id number] Acct: [id number] Name: JOS MCCALL Rep #: [id number] : 1965 52 From: Indra Card MD PCP: Care Physician, No Primary Status: REG ER ED Disposition - Plan for ED Patient: Chief Complaint: Upper Extremity Injury Instructions: ED Strain Muscle Ext Prescriptions: Naproxen [Naprosyn] 500 mg PO BID #20 tab Referrals: Care Physician,No Primary [Primary Care Provider] - What to do if you have Problems For any increased pain, shortness of breath, bleeding, nausea or vomiting, chest pain, or any unexpected problems, contact your Primary Care Provider. Call [facility] ([phone]) or report to the closest Emergency Room. Call 911 if necessary. 11/11/17 174 <Electronically signed by Indra Card MD> Date Indra Card MD Cosigner Signature (If Indicated): Date CC: No Primary Care Physician EMERGENCY DEPARTMENT Observed: 11/11/2017 Status: F Source: [place] SUMMARY 5:42 PM [facility] REPOSITORY [facility] Medical Records Department [address] [place] [address] Emergency Department Summary 11/11/17 1738 MR#: [id number] Acct: [id number] Name: JOS MCCALL Rep #: [id number] : 1965 52 From: Indra Card MD PCP: Care Physician, No Primary Status: REG ER - ER Visit Summary Date of Service: 11/11/17 Chief Complaint: Right forearm pain History of Present Illness: The patient is a 52 F who presents with right forearm pain for about a month. 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 She has noticed some aching pain in the anterior aspect of her mid right forearm which is worse with palpation or movement this does occasionally radiate down to the hand and she occasionally gets some numbness and tingling in her fingers as well. No specific fall or injury. Review of systems otherwise negative. Physical Examination: Afebrile vitals unremarkable Heart regular No respiratory distress Patient does have pain on palpation of the anterior mid left forearm she has normal radial and ulnar pulses brisk capillary refill normal sensation active full range of motion normal opposition of the digits normal sensation in the radial ulnar and median nerve distributions Test Results: Forearm x-ray is normal Emergency Department Course and Treatment: Straight examination are consistent with a forearm strain. She was given a prescription for naproxen. She was instructed on supportive care. She understands to return for new or worsening symptoms. She is agreeable to plan was discharged. Treatment Plan: [] Disposition: Discharge Impression: Right forearm strain This note was generated with BandApp dictation software. It may contain incorrect words, spelling, and punctuation that were not noted in review of the chart prior to signing ED Disposition - Plan for ED Patient: Chief Complaint: Upper Extremity Injury Referrals: Care Physician,No Primary [Primary Care Provider] - What to do if you have Problems For any increased pain, shortness of breath, bleeding, nausea or vomiting, chest pain, or any unexpected problems, contact your Primary Care Provider. Call [facility] ([phone]) or report to the closest Emergency Room. Call 911 if necessary. 11/11/17 767 <Electronically signed by Indra Card MD> Date Indra Card MD Cosigner Signature (If Indicated): Date CC: No Primary Care Physician FOREARM 2 VIEWS Observed: 11/11/2017 Status: F Source: [place] 4:44 PM [facility] REPOSITORY [facility] Imaging Services [address] [place] [address] Forearm 2 Views MR#: [id number] Acct: [id number] Name: JOS MCCALL Rep #: [id number] : 1965 F 52 From: Enoc Posada MD PCP: Care Physician, No Primary Status: REG ER Study: Forearm 2 Views Date of Exam: 11/11/17 Exam# [id number] Ordering Dr: Indra Card MD STUDY: X-RAY - RIGHT RADIUS AND ULNA REASON FOR EXAM: Female, 52 years old. Pain. TECHNIQUE: 2 view(s) of the forearm. COMPARISON: None. FINDINGS: There is no demonstrated soft tissue swelling. Normal visualized radius. Normal visualized ulna. There is no demonstrated acute fracture. RAD/Forearm 2 Views IMPRESSION: Normal x-ray examination of the radius and ulna. Electronically Signed: Enoc Posada MD at 17:04 EST , Service support , CC: No Primary Care Physician; Indra Card MD Build Automation Engineer: Signed ALLERGIES ALLERGIES DATE TYPE / CODE NAME / CODE REACTION SEVERITY SOURCE 09/12/2018 Drug PENICILLINS OTHER: SEE C [facility] Class/[address] [address] [place] [address](SNOMED Repository CT) 09/04/2018 Drug aspirin/[id number] NOSE BLEED Unknown [place] Allergy/416 (RXNORM) Community 344923([facility] ED CT) Repository Drug NO KNOWN ALLERGIES [facility] Class/[address] [place] 1003(SNOMED Repository CT) ENCOUNTERS ENCOUNTERS ADMIT/DISCHARGE ACCOUNT ADMITTING ENCOUNTER LOCATION SOURCE NUMBER CLASS 10/06/2018/10/09/19 [id number] Ambulatory [address] [place] Repository 09/12/2018/09/12/20 [id number] Ambulatory [address] [place] Repository 09/12/2018/09/13/20 [id number] Ambulatory [address] Repository 09/04/2018/09/04/20 [id number] Emergency [address] ing:ED Repository 07/26/2018/07/27/20 [id number] Ambulatory [address] [place] Repository 06/24/2018/06/26/20 [id number] Ambulatory [address] Repository 03/30/2018/03/30/20 [id number] Emergency [place] ing:ED Repository 03/02/2018/03/02/20 [id number] Emergency [place] ing:ED Repository 02/08/2018/02/09/20 [id number] Ambulatory BMSBuilding:B [place] 18 [place].On license of [facility] Repository 02/08/2018/02/09/20 [id number] [place] [facility] ing:OT Repository 01/25/2018/01/26/20 [id number] Ambulatory BMSBuilding:B [place] 18 [place].On license of [facility] Repository 01/20/2018 [id number] Ambulatory [facility] ing:MRI Repository 01/04/2018/01/05/20 [id number] Ambulatory BMSBuilding:B [place] 18 [place].On license of [facility] Repository 12/19/2017/12/20/19 [id number] Emergency [place] [facility] ing:ED Repository 11/11/2017/11/11/19 [id number] Emergency [place] [facility] ing:ED Repository PAYERS PAYERS ENCOUNTER GUARANTOR PAYER SUBSCRIBER SOURCE 09/04/2018 JOS [id number] Primary JOS A [place] Insurance:PARAMOUNT GOWINSDOB: [facility] [id number] Hospital 00194Vju: [phone]) Number: Repository [phone] () [id number] Date:1784-40-55HY [address] [place] [phone]: 09/04/2018 Secondary NOT GIVENUNK [place] Insurance:SELF PAY [facility] Number: Effective Repository Date:2018-09-04 03/30/2018 JOS [id number] Primary JOS A [place] Insurance:PARAMOUNT GOWINSDOB: [facility] [id number] Hospital [address]Yga: [phone]) Number: Repository [phone] () [id number] Date:0883-04-85QQ [address] [place] [phone]: 03/30/2018 Secondary NOT GIVENUNK [place] Insurance:SELF PAY [facility] Number: Effective Repository Date:2018-03-30 03/02/2018 JOS [id number] Primary JOS A [place] Insurance:PARAMOUNT GOWINSDOB: [facility] [id number] Hospital 35[address]Dnr: (330) Number: Repository [phone] () [id number] Date:5812-94-25QQ [address] [place] [phone]: 03/02/2018 Secondary NOT GIVENUNK [place] Insurance:SELF PAY [facility] Number: Effective Repository Date:2018-03-02 02/08/2018 JOS [id number] Primary JOS A [place] Insurance:PARAMOUNT GOWINSDOB: [facility] [id number] Hospital [address]84Rgg: [phone]) Number: Repository [phone] () [id number] Date:0343-24-86TH [address] [place] [phone]: 02/08/2018 Secondary NOT GIVENUNK [place] Insurance:SELF PAY [facility] Number: Effective Repository Date:2018-02-08 02/08/2018 JOS A [id number] Primary JOS A [place] Insurance:PARAMOUNT GOWINSDOB: [facility] [id number] Hospital 47683Zck: [phone]) Number: Repository [phone] () [id number] Date:4498-20-70TD [address] [place] [phone]: 02/08/2018 Secondary NOT GIVENUNK [place] Insurance:SELF PAY [facility] Number: Effective Repository Date:2018-01-04 01/25/2018 JOS A [id number] Primary JOS A [place] Insurance:PARAMOUNT GOWINSDOB: [facility] [id number] Hospital [address]Bio: [phone]) Number: Repository [phone] () [id number] Date:6279-95-56VY [address] [place] [phone]: 01/25/2018 Secondary NOT GIVENUNK [place] Insurance:SELF PAY [facility] Number: Effective Repository Date:2018-01-25 01/20/2018 JOS A [id number] Primary JOS A [place] Insurance:PARAMOUNT GOWINSDOB: [facility] [id number] Hospital [address]Vtq: [phone]) Number: Repository [phone] () [id number] Date:6930-68-35CH [address] [place] [phone]: 01/20/2018 Secondary NOT GIVENUNK [place] Insurance:SELF PAY [facility] Effective Repository Date:2018-01-13 01/04/2018 JOS [id number] Primary JOSCarmelina [address] Insurance:PARAMOUNT GOERINSDOB: [address] [id number] Hospital [address]Soi: [phone] Number: Repository [phone] () [id number] Date:4266-89-48PM [address] [place] [phone]: 01/04/2018 Secondary NOT GIVENUNK [place] Insurance:SELF PAY [facility] Number: Effective Repository Date:2018-01-02 12/19/2017 JOS [id number] Primary JOS [address] Insurance:SELMA ROASDOB: [address] [id number] Hospital [address]Bcv: (330) Number: Repository [phone] () [id number] Date:9580-53-44CG [address] [place] [phone]: 12/19/2017 Secondary NOT GIVENUNK [place] Insurance:SELF PAY [facility] Number: Effective Repository Date:2017-12-19 11/11/2017 JOS RÍOS S Primary JOS ROASDOB: [place] [address] Insurance:CAREY [id number] [id number]: (330) Number: Repository [phone] () [id number] Date:1002-66-24FA [address] [place] [phone]: 11/11/2017 Secondary NOT GIVENUNK [place] Insurance:SELF PAY [facility] Number: Effective Repository Date:2017-11-11
--- OUTSIDE RECORDS SUMMARY | 2018-10-22 03:13 | XMS RPT_ITS ---
:1965 Author Organization [employer] Address [address] [place] [address] Phone Care Team Providers Name Role Phone Neeta Manjarrez MD Unavailable Reason for Visit Reason For Visit Description Start Date Follow-up by complaint Preliminary reason for visit data, not yet signed by the author as of right elbow Preliminary reason for visit data, not yet signed by the author as of Chief Complaint Chief Complaint Description Start Date right elbow Preliminary chief complaint data, not yet signed by the author as of Instructions Instruction Description Start Date Completed Plan of Care Type Date Detail Appointment 12:30 PM Neeta Manjarrez MD, [address] [facility], [place], [address], Medications Medication Instructions Start Stop Generic NDC Provider Date Date Name PAIN RELIEF PM take 2 tablets DIPHENHYDRA [id number] Neeta Sarabia EXTRA STRENGTH twice a week as 5 MINE-APAP Josseline DUNCAN TABS needed (SLEEP) TABS Conditions or Problems Problem Problem Onset Status Entry Provider Comment Standard Annotate Name Code Date Date Description Carpal G56.01 Active Neeta Sarabia Carpal tunnel tunnel (ICD-10-CM) / Josseline DUNCAN syndrome, syndrome right upper right limb upper [place] of 814939236 Active Neeta Sarabia Disorder of right (SNOMED CT) / Josseline DUNCAN elbow elbow Allergies, Adverse Reactions, Alerts Observed no known allergies at Social History Concept Description Observation Name Observation Value Units Start Date Former smoker SMOK STATUS former smoker Preliminary social history data, not yet signed by the author as of How many days of EXERCISEFREQ 3 days per moderate to week strenuous exercise, like a brisk walk, did you do in the last 7 days? Preliminary social history data, not yet signed by the author as of Vital Signs Date Name Value Unit Description BMI (Body Mass 28.60 kg/m2 Body Mass Index Index) [Ratio] Preliminary vital sign data, not yet signed by the author as of BP Diastolic 74 mm[Hg] blood pressure, diastolic Preliminary vital sign data, not yet signed by the author as of BP Systolic 122 mm[Hg] blood pressure, systolic Preliminary vital sign data, not yet signed by the author as of Heart Rate 59 /min pulse rate E&M Preliminary vital sign data, not yet signed by the author as of Height 64 [in_us] height E&M Preliminary vital sign data, not yet signed by the author as of Height 163 cm height in centimeters E&M Preliminary vital sign data, not yet signed by the author as of Weight Measured 166 [lb_av] weight E&M Preliminary vital sign data, not yet signed by the author as of Weight Measured 75 kg weight in kilograms E&M Preliminary vital sign data, not yet signed by the author as of Results Date Name Value Unit Range Flag Description Office Visit: Follow-up by complaint, Rm: 4 MEDS REVIEW Done Documentation of current medications (procedure) Preliminary observation data, not yet signed by the author as of SMOK STATUS former smoker Tobacco smoking status NHIS Preliminary observation data, not yet signed by the author as of EMG HX of the right arm EMG (electromyograph) on 05/10/2018 at history [facility] Preliminary observation data, not yet signed by the author as of Preliminary observation data, not yet signed by the author as of Clinical Summary: HMSPatientID SOP account number Procedures Code Procedure Name Date Entry Date G8730 Pain assessment documented as positive - follow-up documented G8427 Current medications documented 1036F Tobacco screening was negative - non user G8419 BMI outside of normal parameters - no follow-up plan/reason not given G8783 Blood pressure within normal parameters - no follow-up required [facility] [[email or web address]]-[id number] Patient Encounter Medications Administered No information available. Immunizations No information available. Advance Directives There may be information available, but it has not been provided by the sender. Assessments There may be information available, but it has not been provided by the sender. Review of Systems There may be information available, but it has not been provided by the sender. Family History There may be information available, but it has not been provided by the sender. History of Past Illness There may be information available, but it has not been provided by the sender. History of Present Illness There may be information available, but it has not been provided by the sender.
--- OUTSIDE RECORDS SUMMARY | 2018-10-22 03:13 | XMS RPT_ITS ---
:1965 Author Organization [employer] Address [address] [place] [address] Phone Care Team Providers Name Role Phone Josseline DUNCAN, Neeta Sarabia Unavailable Reason for Visit Reason For Visit Description Start Date New - 1st visit with practice Preliminary reason for visit data, not yet signed by the author as of right elbow pain Preliminary reason for visit data, not yet signed by the author as of Chief Complaint Chief Complaint Description Start Date right elbow pain Preliminary chief complaint data, not yet signed by the author as of Instructions Instruction Description Start Date CompletedPatient advised to follow-up with Primary Care Physician for BMI management. Plan of Care Type Date Detail Appointment 12:30 PM Neeta Manjarrez MD, [address] [facility], [facility], [place], [address], Pending order EMG/NCT right upper extremity Medications Medication Instructions Start Stop Generic Name NDC Provider Date Date PAIN RELIEF PM take 2 tablets DIPHENHYDRAM [id number] Aby EXTRA STRENGTH twice a week 5 INE-APAP Armando RAMP SERVICE AGENT TABS (SLEEP) TABS TRAMADOL HCL take as needed TRAMADOL HCL 92396016925 Aby 50 MG TABS as directed 5 Armando RAMP SERVICE AGENT Conditions or Problems Problem Problem Onset Status Entry Provider Comment Standard Annotate Name Code Date Date Description [place] of 067996462 Active Neeta Sarabia Disorder of right (SNOMED CT) / Josseline DUNCAN elbow elbow Allergies, Adverse Reactions, Alerts Observed no known allergies at Social History No information available. Vital Signs Date Name Value Unit Description BMI (Body Mass 28.60 kg/m2 Body Mass Index Index) [Ratio] Preliminary vital sign data, not yet signed by the author as of BP Diastolic 75 mm[Hg] blood pressure, diastolic Preliminary vital sign data, not yet signed by the author as of BP Systolic 116 mm[Hg] blood pressure, systolic Preliminary vital sign data, not yet signed by the author as of Heart Rate 74 /min pulse rate E&M Preliminary vital sign [...] Value Unit Range Flag Description Office Visit: New - 1st visit with practice, Rm: MEDS REVIEW Done Documentation of current medications (procedure) Preliminary observation data, not yet signed by the author as of Preliminary observation data, not yet signed by the author as of MRI HX of the right elbow MRI (magnetic on 01/20/2018 at [facility]) history Preliminary observation data, not yet signed by the author as of Clinical Summary: Scanned ROS Summary ROS: Denies genitourinary review of systems, E&M ROS: GI Denies ROS gastrointestinal E&M ROS ENDO Denies endocrine ROS ROS MSK COMM Muscle ROS Musculoskeletal Weakness,Pain comments ROS:MUSCSKEL Complains ROS musculoskeletal E&M ROS: PSYCH Denies ROS psychiatric E&M ROS HEME Denies ROS hematologic/lymphatic E&M ROS SKIN Denies ROS skin E&M ROS ENT Denies ROS ENT E&M ROS GEN COMM Fatigue ROS General Comments ROS:GENERAL Complains ROS general E&M ROS_NEUR_COM Numbness,Tingli Review of Systems ng Neurologic comment ROS: NEURO Complains ROS neurological E&M ROS:PULMON Denies ROS pulmonary E&M ROS: CARDIAC Denies ROS cardiovascular E&M Clinical Summary: HMSPatientID SOP account number Procedures Code Procedure Name Date Entry Date CPT-37145 XR ELBOW 3+ VWS-RT CPT-38071 XR ELBOW 3+ VWS-LT G8730 Pain assessment documented as positive - follow-up documented G8427 Current medications documented 4004F-8P Tobacco screening or cessation counseling not performed - unknown reason G8417 BMI documented as above normal parameters - follow-up documented G8783 Blood pressure within normal parameters - no follow-up required [facility]-[id number] Patient Encounter Medications Administered No information available. [...]
--- OUTSIDE RECORDS SUMMARY | 2018-10-22 03:13 | XMS RPT_ITS ---
:1965 Author Organization [employer] Address [address] [place] [address] Phone Care Team Providers Name Role Phone Josseline DUNCAN, Neeta Sarabia Unavailable Reason for Visit Reason For Visit Description Start Date Postop - 1st visit Preliminary reason for visit data, not yet signed by the author as of right wrist post right endoscopic carpal tunnel release; right biceps mass excision on 05/18/2018 Preliminary reason for visit data, not yet signed by the author as of Chief Complaint Chief Complaint Description Start Date right wrist post right endoscopic carpal tunnel release; right biceps mass excision on 05/18/2018 Preliminary chief complaint data, not yet signed by the author as of Instructions Instruction Description Start Date CompletedPatient advised to follow-up with Primary Care Physician for BMI management. Plan of Care Type Date Detail Appointment 03:30 PM Neeta Manjarrez MD, [address] [facility], [facility], [place], [address], Medications Medication Instructions Start Stop Generic NDC Provider Date Date Name PAIN RELIEF PM take 2 tablets DIPHENHYDRA [id number] Neeta Sarabia EXTRA STRENGTH twice a week as 5 MINE-APAP Josseline DUNCAN TABS needed (SLEEP) TABS Conditions or Problems Problem Problem Onset Status Entry Provider Comment Standard Annotate Name Code Date Date Description Carpal G56.01 Active Neeta Sarabia Carpal tunnel tunnel (ICD-10-CM) / Josseline DUNCAN syndrome, syndrome right upper right limb upper limb Mass of 649923785 Active Neeta Sarabia Disorder of right (SNOMED CT) / Josseline DUNCAN elbow elbow Allergies, Adverse Reactions, Alerts Observed no known allergies at Social History No information available. Vital Signs Date Name Value Unit Description BMI (Body Mass 28.60 kg/m2 Body Mass Index Index) [Ratio] Preliminary vital sign data, not yet signed by the author as of BP Diastolic 77 mm[Hg] blood pressure, diastolic Preliminary vital sign data, not yet signed by the author as of BP Systolic 129 mm[Hg] blood pressure, systolic Preliminary vital sign data, not yet signed by the author as of Heart Rate 63 /min pulse rate E&M Preliminary vital sign [...] Value Unit Range Flag Description Office Visit: Postop - 1st visit, Rm: MEDS REVIEW Done Documentation of current medications (procedure) Preliminary observation data, not yet signed by the author as of Preliminary observation data, not yet signed by the author as of Clinical Summary: HMSPatientID SOP account number Procedures Code Procedure Name Date Entry Date CPT-21470 Occupational Therapy G8730 Pain assessment documented as positive - follow-up documented G8427 Current medications documented 1036F Tobacco screening was negative - non user G8417 BMI documented as above normal parameters - follow-up documented G8783 Blood pressure within normal parameters - no follow-up required [facility]-[id number] Patient Encounter Medications Administered No information available. [...]
== END 2018-09-04 22:32 | disposition home or self-care (01) ==
PROVIDERS: Emergency Provider Emergency Medicine
DX: J09.X2 Influenza due to identified novel influenza A virus with other respiratory manifestations (principal); J06.9 Acute upper respiratory infection, unspecified; R05 Cough; F17.200 Nicotine dependence, unspecified, uncomplicated
CPT/HCPCS: 71046; 80048; 83880; 84484; 85025; 87804; 93005; 94640; 96361; 96374; 99284; J7030; A4216; J2405

== ENCOUNTER 2018-10-30 03:47 | Emergency (ER) | payer MEDICAID, SELFPAY ==
[2018-10-30 03:47] VITALS: BP 150/95; PULSE 93; RESP 16; TEMP 36.7; O2SAT 96; BMI 29.8
--- NOTE | 2018-10-30 04:05 | RAD_ITS ---
HISTORY: PT FELL LAST NIGHT. GENERALIZED LEFT ARM PAIN. COMPARISON: None FINDINGS: XR left humerus 2 views No fracture, dislocation, or bony abnormality. As visualized, the soft tissues are negative. RAD/Humerus min 2 Views IMPRESSION: [place] [address] Reported and signed by: Colt High MD Electronically Signed: Colt High, at 4:28 EST Tel , Service support ,
--- NOTE | 2018-10-30 04:09 | ED.VISSUMM ---
- ER Visit Summary Date of Service: 10/30/18 Chief Complaint: Fall with left upper arm pain History of Present Illness: The patient is a 53 F past medical history of kidney stones. Patient states yesterday she slipped and fell on the ice. Landing on her left elbow but she states the pain is in her left upper arm. No head injury. No LOC. She denies other complaints. She is right-hand dominant. No prior significant surgery to her left upper extremity. Physical Examination: Well-appearing middle-age female. Vital signs stable afebrile. No acute distress. HEENT exam atraumatic. Pupils round reactive light. No signs of facial or scalp trauma. C-spine nontender. Trachea midline. Normal range of motion. Lungs clear to auscultation bilaterally. Heart regular rhythm no murmur. Chest nontender. Abdomen soft nontender. Normal bowel sounds no peritoneal signs. Girdle intact. Extremities she has tenderness along the left humerus. There is no gross bony deformity of either the shoulder or the left elbow. Left forearm, wrist and hand are nontender neurovascular intact. Palpable radial pulse. Normal product scientist strength and sensation in the left hand. There are no obvious signs of dislocation or fracture of the left arm. Right upper extremities unremarkable both lower extremities are nontender normal range motion. Back nontender. Neurologically she is awake alert with no focal motor deficits. Test Results: Left humerus x-ray 2 views shows no acute abnormality. No fracture nor dislocation. Read by myself. The elbow and shoulder are also visualized on these films and they were normal. Emergency Department Course and Treatment: Patient treated with Motrin for pain. Treatment Plan: Repeat exam at 38 patient doing well. I went over x-rays with her. She will be discharged home. Disposition: Discharge Impression: Acute slipped and fell on the ice Acute left upper extremity contusion This note was generated with [employer] dictation software. It may contain incorrect words, spelling, and punctuation that were not noted in review of the chart prior to signing ED Disposition - Plan for ED Patient: Referrals: Care Physician,No Primary [NON-STAFF] -
--- NOTE | 2018-10-30 04:13 | ED.DCSUM_ITS ---
- ER Visit Summary Date of Service: 10/30/18 Chief Complaint: Fall with left upper arm pain History of Present Illness: The patient is a 53 F past medical history of kidney stones. Patient states yesterday she slipped and fell on the ice. Landing on her left elbow but she states the pain is in her left upper arm. No head injury. No LOC. She denies other complaints. She is right-hand dominant. No prior significant surgery to her left upper extremity. Physical Examination: Well-appearing middle-age female. Vital signs stable afebrile. No acute distress. HEENT exam atraumatic. Pupils round reactive light. No signs of facial or scalp trauma. C-spine nontender. Trachea midline. Normal range of motion. Lungs clear to auscultation bilaterally. Heart regular rhythm no murmur. Chest nontender. Abdomen soft nontender. Normal bowel sounds no peritoneal signs. Girdle intact. Extremities she has tenderness along the left humerus. There is no gross bony deformity of either the shoulder or the left elbow. Left forearm, wrist and hand are nontender neurovascular intact. Palpable radial pulse. Normal date pitter strength and sensation in the left hand. There are no obvious signs of dislocation or fracture of the left arm. Right upper extremities unremarkable both lower extremities are nontender normal range motion. Back nontender. Neurologically she is awake alert with no focal motor deficits. Test Results: Left humerus x-ray 2 views shows no acute abnormality. No fracture nor dislocation. Read by myself. The elbow and shoulder are also visualized on these films and they were normal. Emergency Department Course and Treatment: Patient treated with Motrin for pain. Treatment Plan: Repeat exam at 38 patient doing well. I went over x-rays with her. She will be discharged home. Disposition: Discharge Impression: Acute slipped and fell on the ice Acute left upper extremity contusion This note was generated with [employer] dictation software. It may contain incorrect words, spelling, and punctuation that were not noted in review of the chart prior to signing ED Disposition - Plan for ED Patient: Referrals: Care Physician,No Primary [NON-STAFF] -
[2018-10-30] MEDS: Ibuprofen 600 MG Tablet PO (04:35)
--- NOTE | 2018-10-30 04:40 | ED.DEP ---
ED Disposition - Plan for ED Patient: Disposition: Home or Assisted Living Instructions: ED Contusion Upper Ext Referrals: Care Physician,No Primary [NON-STAFF] - 1 Week if not improving Additional Instructions: Ice to the the left upper arm. Tylenol and/or Motrin for pain. Your x-ray was normal today. If not improving follow-up with your primary care physician.
[2018-10-30 04:45] VITALS: BP 148/90; PULSE 98; RESP 16; O2SAT 96
== END 2018-10-30 04:46 | disposition home or self-care (01) ==
PROVIDERS: Emergency Provider Emergency Medicine; Family Provider Internal Medicine; PCP Internal Medicine
DX: S40.022A Contusion of left upper arm, initial encounter (principal); Z87.442 Personal history of urinary calculi; Z72.0 Tobacco use; Z95.1 Presence of aortocoronary bypass graft; Z79.899 Other long term (current) drug therapy; W00.0XXA Fall on same level due to ice and snow, initial encounter; Y93.89 Activity, other specified; Y92.89 Other specified places as the place of occurrence of the external cause; Y99.8 Other external cause status
CPT/HCPCS: 73060; 99283

== ENCOUNTER 2018-11-06 17:34 | Emergency (ER) | payer MEDICAID, SELFPAY ==
[2018-11-06 17:35] VITALS: BP 138/75; PULSE 88; RESP 16; TEMP 35.6; O2SAT 100; BMI 200.9
--- NOTE | 2018-11-06 17:50 | US_ITS ---
STUDY: VENOUS DOPPLER ULTRASOUND - RIGHT LOWER EXTREMITY REASON FOR EXAM: Female, 53 years old. Swelling TECHNIQUE: Ultrasound evaluation of the deep vein system to include rodríguez-scale imaging and compression was performed. Rodríguez-scale imaging and Doppler sonographic evaluation, including duplex spectral analysis and qualitative color flow sonography, was performed. COMPARISON: None. FINDINGS: Common Femoral Vein: Normal compression, spontaneity and augmentation. Normal color Doppler. Common Femoral Vein/Greater Saphenous Junction: Normal compression. Femoral Proximal: Normal compression. Femoral Middle: Normal compression, spontaneity and augmentation. Normal color Doppler. Femoral Distal: Normal compression. Popliteal Vein: Normal compression, spontaneity and augmentation. Normal color Doppler. Posterior Tibial Vein: Normal compression. Peroneal Vein: Normal compression. US/Venous Duplex Imag/Limited/Uni IMPRESSION: Normal venous Doppler ultrasound of the lower extremity. Electronically Signed: Harsha Lu DO at 18:51 EST Tel [phone], Service support ,
[2018-11-06] MEDS: HYDROcodone Bitartrate/Apap 5/325 Tablet PO (17:52)
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
[2018-11-06 19:03] VITALS: BP 132/68; PULSE 80; RESP 16; O2SAT 96
== END 2018-11-06 19:03 | disposition home or self-care (01) ==
LOC: ED 18:31
PROVIDERS: Emergency Provider Emergency Medicine; Family Provider Internal Medicine; PCP Internal Medicine
DX: L03.115 Cellulitis of right lower limb (principal); Z72.0 Tobacco use
CPT/HCPCS: 93971; 99283

== ENCOUNTER 2019-02-21 16:31 | Emergency (ER) | payer MEDICAID, SELFPAY ==
[2019-02-21 16:31] VITALS: BP 165/77; PULSE 97; RESP 18; TEMP 36.8; O2SAT 97; BMI 32.3
--- NOTE | 2019-02-21 16:47 | ED.VIS.GEN ---
History of Present Illness Chief Complaint: Upper Extremity Injury Informant: Patient Onset: Month(s) Context: Gradual Onset, Sudden Onset Timing: Continuous Quality: Burning sensation Location: Circumferential from right and left shoulder to fingertips Current Severity: Mild Maximum Severity: Moderate Worsened by: Movement and use of her fingers Relieved by: Nothing Associated Symptoms: Joint stiffness fingers right and left hand Narrative: Patient is a 53-year-old [id number] woman who presents with burning sensation of her entire right upper and left upper extremity. This is been going on for months. She has taken nothing for it. She has no history of polymyalgia. She has no history of autoimmune disorder. She denies fever or chills. She denies night sweats. Denies weight gain or weight loss. She denies history of diabetes, thyroid disease. She states she has discomfort with pressure on her right hand. She felt the same symptoms prior to carpal tunnel surgery 1.5 years ago at [facility]. She has not followed up. She denies cardiac respiratory symptoms. She has no other complaints. - Past Medical History (1) Depression Status: Acute (2) History of hypertension Status: Chronic (3) Obesity (BMI 30.0-34.9) Status: Chronic (4) Tobacco use Status: Chronic Past Medical History - Allergies and Home Meds Allergies/Adverse Reactions: Allergies aspirin Adverse Reaction (Verified 02/21/19 16:33) NOSE BLEED NOSE BLEED. Primary Care Physician: Sugar Rodriegz MD [Primary Care Provider] - Prior records reviewed: Yes Surgical History: - - BLTL. Lives: Spouse/ Significant Other Smoking Status: Current every day smoker Drugs: None - Family History Maternal Family History: Reports: No pertinent history Paternal Family History: Reports: Heart Disease, Hypertension - [place] at 61. Review of Systems General: Denies: Chills, Fever, Malaise, Subjective, Sweats, Weight loss, - Cardiovascular: Denies: Chest pain, Palpitations Respiratory: Denies: Dyspnea, Cough, Dyspnea on exertion Gastrointestinal: Denies: Nausea, Vomiting Skin: Denies: Rash, Wounds Neurological: Denies: Headache, Weakness, Parasthesia, Numbness Psych: Reports: Depression Hematologic: Denies: Easy bruising, Easy bleeding Allergy: Denies: Uticaria, Swelling of the mouth Physical Exam Vital Signs/Narrative: Vital Signs Temp Pulse Resp BP Pulse Ox 02/21/19 16:31 98.2 F 97 18 165/77 H 97 Inital Vital Signs reviewed: Yes General: Well nourished, Well developed, Obese, No Acute Distress Head: Normocephalic, Atraumatic Eyes: Perrl, EOMI. Negative for: Pale conjunctiva, Scleral icterus, - ENT: Moist mucous membranes, No rhinorrhea Neck: Supple, Nontender, No lymphadenopathy, No JVD, - Cardiovascular: Regular rate, Regular rhythm Respiratory: No distress Back: Nontender Extremities: No edema, Tenderness, - - Full active range of motion of the shoulder, elbow, wrist and digits.. Negative for: Nontender, Edema Skin: Normal color, No rash, No Trauma. Negative for: Cyanosis, Jaundice Neurological: Alert, Oriented x3, Cranial nerves II-XII grossly intact, Normal Strength, Normal Sensation, Normal DTR - 1+ biceps, brachialis and triceps reflex and symmetric. Axillary, median, radial and ulnar function intact. Radial pulses 2+ and palpable. Psychological: Depressed Diagnostic/Tx/Re-eval - Medical Decision Making Patient with pain right and left upper extremity. This may represent fibromyalgia., she may have autoimmune disorder. Patient's physical exam is not consistent with carpal tunnel. She has a negative Tinel sign and Phalen sign. She reported pulling dorsal surface of her right proximal forearm during Phale test. There is no joint swelling, bogginess or warmth of the DIP or PIP joints of her right and left fingers. There is no swelling or bogginess of the right or left wrist joint. She has no tenderness over the clavicle or AC joint right or left side. She does report pain out of proportion to stimulus. Since patient has no contra indication NSAIDs did not take anything she was placed on Naprosyn. She was instructed to follow-up with her primary care physician. She was informed she may need an autoimmune work-up. ED Disposition - Plan for ED Patient: Disposition: Home or Assisted Living Diagnosis: Pain in both upper extremities Instructions: ED Acute Pain [facility] Prescriptions: Naproxen [Naprosyn] 500 mg PO BID #20 tablet Referrals: Sugar Rodrigez MD [Primary Care Provider] - 5-7 Days Additional Instructions: Your prescription was electronically transmitted to [facility] your designated pharmacy of choice.
[2019-02-21] MEDS: Naproxen 250 MG Tablet 500 MG PO (17:00)
[2019-02-21 17:15] VITALS: RESP 18
== END 2019-02-21 17:15 | disposition home or self-care (01) ==
PROVIDERS: Emergency Provider Emergency Medicine; Family Provider Internal Medicine; PCP Internal Medicine
DX: M79.602 Pain in left arm (principal); M79.601 Pain in right arm; I10 Essential (primary) hypertension; E66.9 Obesity, unspecified; F17.200 Nicotine dependence, unspecified, uncomplicated; D89.89 Other specified disorders involving the immune mechanism, not elsewhere classified; F32.9 Major depressive disorder, single episode, unspecified; Z79.899 Other long term (current) drug therapy
CPT/HCPCS: 99283

== ENCOUNTER 2019-04-10 23:26 | Emergency (ER) | payer MEDICAID, SELFPAY ==
[2019-04-10 23:26] VITALS: BP 132/62; PULSE 90; RESP 18; TEMP 35.9; O2SAT 99; BMI 29.2
--- NOTE | 2019-04-11 00:01 | RAD_ITS ---
STUDY: X-RAY - LEFT HAND REASON FOR EXAM: Female, 53 years old. Pain in the pinky finger and fifth metacarpal less than 12 hours. TECHNIQUE: 3 view(s) of the hand. COMPARISON: Prior comparable comparison studies are not available for review at this time. FINDINGS: Normal radiocarpal articulation. Normal distal radioulnar joint. There is diffuse demineralization of the carpal bones. Normal carpal articulations Normal carpometacarpal articulation of the thumb. Normal second through fifth carpometacarpal joints. Normal metacarpi. Normal metacarpophalangeal joint of the thumb. Normal interphalangeal joint of the thumb. Patient is wearing a ring on the thumb which obscures anatomy of the proximal phalanx. The distal phalanx of the thumb is within normal limits. Normal metacarpophalangeal joints of the second through fifth fingers. Normal proximal and distal interphalangeal joints of the second through fifth fingers. Normal phalanges of the second through fifth fingers. There is mild soft tissue swelling. RAD/Hand Min 3 Views IMPRESSION: No radiographic evidence for fracture. Electronically Signed: Kitty Slater MD at 0:57 EDT , Service support ,
--- NOTE | 2019-04-11 00:02 | ED.VISSUMM ---
- ER Visit Summary Date of Service: 04/11/19 Chief Complaint: Left hand pain History of Present Illness: The patient is a 53 F who complains of pain in her left fifth finger and along the side of her left hand. She does notice this today. It is worse with movement. No paresthesias weakness loss of function. No history of trauma or injury. Review of systems otherwise negative. Physical Examination: Afebrile vitals normal Patient has tenderness along the left hand in the region of the fifth metacarpal no focal bony tenderness she has tenderness along left fifth finger no soft tissue swelling no erythema she has brisk capillary refill normal sensation Test Results: Hand x-ray normal, no fracture Emergency Department Course and Treatment: Patient was given naproxen. X-ray negative as above. This is most likely related to hand sprain. She was advised on supportive care. She understands return for new or worsening symptoms and was discharged home. Treatment Plan: [] Disposition: Discharge Impression: Hand sprain This note was generated with Walk-in Appointment Scheduler dictation software. It may contain incorrect words, spelling, and punctuation that were not noted in review of the chart prior to signing ED Disposition - Plan for ED Patient: Referrals: Sugar Rodrigez MD [Primary Care Provider] -
[2019-04-11] MEDS: Naproxen 500 MG Tablet PO (00:18)
--- NOTE | 2019-04-11 01:02 | ED.DEP ---
ED Disposition - Plan for ED Patient: Instructions: Sprain Hand Referrals: Sugar Rodrigez MD [Primary Care Provider] -
[2019-04-11 01:08] VITALS: RESP 18
== END 2019-04-11 01:08 | disposition home or self-care (01) ==
LOC: ED 04-11 00:36
PROVIDERS: Emergency Provider Emergency Medicine; Family Provider Internal Medicine; PCP Internal Medicine
DX: S63.92XA Sprain of unspecified part of left wrist and hand, initial encounter (principal); Z72.0 Tobacco use; X58.XXXA Exposure to other specified factors, initial encounter; Y93.89 Activity, other specified; Y92.89 Other specified places as the place of occurrence of the external cause; Y99.8 Other external cause status
CPT/HCPCS: 73130; 99282

== ENCOUNTER 2019-07-26 17:16 | Emergency (ER) | payer SELFPAY ==
[2019-07-26 17:17] VITALS: BP 137/87; PULSE 90; RESP 17; TEMP 36.7; O2SAT 96; BMI 33.0
--- NOTE | 2019-07-26 17:47 | RAD_ITS ---
STUDY: X-RAY - RIGHT ELBOW REASON FOR EXAM: Female, 54 years old. Elbow pain TECHNIQUE: 3 view(s) of the elbow. COMPARISON: None. FINDINGS: Normal visualized humerus, radius and ulna. Normal radiocapitellar and ulnotrochlear articulations. The soft tissue structures are unremarkable. RAD/Elbow min 3 Views IMPRESSION: Normal x-ray examination of the elbow. Electronically Signed: William Mendoza DO at 18:24 EDT Tel , Service support ,
--- NOTE | 2019-07-26 18:17 | ED.DCSUM_ITS ---
- ER Visit Summary Date of Service: 07/26/19 Chief Complaint: Right upper extremity pain History of Present Illness: The patient is a 54 F presenting with lump distal to her right elbow. She states she noticed a small bump on her right arm this morning. Later in the day she noticed that it increased in size. Denies injury. Denies fever. No history of similar complaints. Physical Examination: Vitals are stable. Patient is afebrile. Alert no acute distress. HEENT exam is unremarkable. Neck is supple. Lungs are clear and equal bilaterally. Heart is regular rate and rhythm. Extremities 2 cm indurated lesion distal to right elbow. Active full range of motion of elbow. Mild erythema and warmth. No fluctuance. Neurovascularly intact distally. Skin is warm and dry. No focal neurologic deficit. Remainder of exam is unremarkable. Treatment Plan: Right elbow x-ray shows no acute process. Patient is given Bactrim and Keflex. She is advised to watch for worsening infection. Advised to follow-up with primary care physician. Advised to return to ED for worsening complaints. Disposition: Discharge home Impression: Right upper extremity abscess This note was generated with [employer] dictation software. It may contain incorrect words, spelling, and punctuation that were not noted in review of the chart prior to signing ED Disposition - Plan for ED Patient: Instructions: ABSCESS, Antiobiotic Treatment Only Prescriptions: Smz/Tmp Ds [Bactrim Ds] 1 tab PO BID #14 tab Prescription Printed Cephalexin [Keflex] 500 mg PO Q6 #40 cap Prescription Printed Referrals: Sugar Rodrigez MD [Primary Care Provider] -
--- NOTE | 2019-07-26 18:45 | ED.DEP ---
ED Disposition - Plan for ED Patient: Instructions: ABSCESS, Antiobiotic Treatment Only Prescriptions: Smz/Tmp Ds [Bactrim Ds] 1 tablet PO BID #14 tablet Cephalexin [Keflex] 500 mg PO Q6 #40 capsule Referrals: Sugar Rodrigez MD [Primary Care Provider] -
[2019-07-26] MEDS: Cephalexin 250 MG Capsule 500 MG PO (19:10)
[2019-07-26] MEDS: Smz/Tmp Ds Tablet 1 TABLET PO (19:10)
[2019-07-26] MEDS: HYDROcodone Bitartrate/Apap 5/325 Tablet PO (19:10)
[2019-07-26 19:11] VITALS: RESP 18
== END 2019-07-26 19:12 | disposition home or self-care (01) ==
LOC: ED 17:58
PROVIDERS: Emergency Provider Emergency Medicine; Family Provider Internal Medicine; PCP Internal Medicine
DX: L02.413 Cutaneous abscess of right upper limb (principal); I10 Essential (primary) hypertension; F32.9 Major depressive disorder, single episode, unspecified; Z79.899 Other long term (current) drug therapy; Z72.0 Tobacco use
CPT/HCPCS: 73080; 99283

== ENCOUNTER 2019-10-16 08:08 | Emergency (ER) | payer SELFPAY ==
[2019-10-16 08:10] VITALS: BP 145/117; PULSE 76; RESP 18; TEMP 36.6; O2SAT 100; BMI 30.9
--- NOTE | 2019-10-16 08:23 | ED.VISSUMM ---
- ER Visit Summary Date of Service: 10/16/19 Chief Complaint: Fall History of Present Illness: The patient is a [address] Griffin. She reports that yesterday she slipped on the ice and fell. Hit the back of her head. No loss of consciousness. She is not on anticoagulants. However, she reports she has had a headache and neck pain that are both 8 out of 10 in severity. States she is felt nauseated and her vision has been blurred. Also reports she is having a difficult time concentrating. Patient denies any other injuries. No back, wrist, or hip pain. Physical Examination: Vitals: Stable. Afebrile. Neck: No vertebral tenderness. Full ROM without difficulty. Cleared by NEXUS criteria. Mild tenderness palpation paraspinous musculature bilaterally. Back: No vertebral tenderness. General: A&O x 3. NAD. Cardiovascular exam: Regular rate and rhythm, no murmur, rub or gallop. Respiratory exam: Chest nontender. No crepitus. Clear to auscultation bilaterally. No wheezes or stridor. Abdominal exam: Soft, nontender, nondistended, normal bowel sounds. No pain in RUQ or LUQ specifically. No peritoneal signs. Extremity: Atraumatic. No pain with range of motion. Emergency Department Course and Treatment: Had prolonged discussion with the patient about the likelihood that she does have a concussion. However, with no loss of consciousness or anticoagulants imaging is not necessary. She was treated with Zofran and Tylenol. Treatment Plan: Concussion precautions were discussed with the patient. She will be discharged with Zofran. You instructed to use Tylenol and/or ibuprofen for pain. Follow-up Dr. potter to in 1 week for another exam. Return to the emergency department for any worsening symptoms. Disposition: To home in improved and stable condition. Impression: 1. Fall. 2. Concussion. 3. Cervical strain. This note was generated with [employer] dictation software. It may contain incorrect words, spelling, and punctuation that were not noted in review of the chart prior to signing ED Disposition - Plan for ED Patient: Instructions: CONCUSSION, No Wake Up Prescriptions: Ondansetron [Zofran Odt] 4 mg PO Q8H PRN PRN #10 tablet PRN Reason: Nausea Referrals: Sugar Rodrigez MD [Primary Care Provider] - 1 Week
[2019-10-16] MEDS: Acetaminophen 500 MG Tablet 1000 MG PO (08:43)
[2019-10-16] MEDS: Ondansetron ODT 4 MG Tablet PO (08:43)
== END 2019-10-16 08:50 | disposition home or self-care (01) ==
LOC: ED 08:33
PROVIDERS: Emergency Provider Emergency Medicine; PCP Internal Medicine
DX: S06.0X0A Concussion without loss of consciousness, initial encounter (principal); S16.1XXA Strain of muscle, fascia and tendon at neck level, initial encounter; Z72.0 Tobacco use; W00.0XXA Fall on same level due to ice and snow, initial encounter; Y93.01 Activity, walking, marching and hiking; Y92.89 Other specified places as the place of occurrence of the external cause; Y99.8 Other external cause status
CPT/HCPCS: 99283

== ENCOUNTER 2021-01-11 17:41 | Emergency (ER) | payer MEDICAID, SELFPAY ==
[2021-01-11 17:41] VITALS: BP 129/82; PULSE 84; RESP 17; TEMP 36.6; O2SAT 97; BMI 32.8
--- NOTE | 2021-01-11 17:55 | CT_ITS ---
STUDY: CT ABDOMEN AND PELVIS WITHOUT CONTRAST REASON FOR EXAM: Female, 55 years old. Right flank pain RADIATION DOSAGE (If Supplied By Facility): CTDIvol = ( 10.33 ) mGy, DLP = ( 539.29 ) mGycm TECHNIQUE: Transaxial images were obtained from the dome of the diaphragm to the symphysis pubis without oral contrast, and without intravenous contrast. Sagittal and coronal images were reconstructed. Individualized dose optimization techniques were used for this CT. COMPARISON: 03/02/2018. FINDINGS: The study is limited due to lack of intravenous contrast. Lung bases clear. Unremarkable liver, spleen, pancreas, and adrenals on this unenhanced study. No radiopaque urolithiasis or hydroureteronephrosis on either side. Diffuse fat stranding around the left kidney, due to recent passage of a stone or acute pyelonephritis. No definite cholelithiasis. Normal appendix. Bowel loops nonobstructed. No free air or free fluid. No adenopathy. No abdominal aortic aneurysm. Sections through the pelvis demonstrate mild diffuse fat stranding around the urinary bladder, suspicious for acute cystitis. No adnexal mass. Mild multilevel thoracolumbar spondylosis noted. Mild osteoarthritis of the bilateral hip joints. CT/Abdomen/Pelvis without Cont IMPRESSION: Findings suspicious for acute infectious/inflammatory cystitis. No radiopaque urolithiasis on either side. Fat stranding around the left kidney, due to recent passage of a stone or acute pyelonephritis. Clinical correlation recommended. Electronically Signed: Mikhail Fishman MD at 18:51 EDT Tel , Service support ,
[2021-01-11] MEDS: Ondansetron 4 MG/2 ML Vial IV (18:00)
[2021-01-11] MEDS: Morphine 4 MG/ML Syringe IV ×2 (18:00→19:54)
--- NOTE | 2021-01-11 18:03 | ED.DCSUM_ITS ---
- ER Visit Summary Date of Service: 01/11/21 Chief Complaint: Flank pain History of Present Illness: The patient is a [address] Rodrigez. She reports that she has right flank pain that began yesterday. It radiates around to the right side of her abdomen. Is a sharp, stabbing pain is 10 of 10 severit y. It is worsened by movement. Is relieved by hot water. She had nausea without vomiting. No diarrhea. Her last bowel was yesterday. She denies melena or hematochezia. She has had dysuria, frequency, and hematuria. She reports this is similar to when she had kidney stones in the past. Physical Examination: Vitals: Stable. Afebrile. General: Well-nourished and well-developed. Head: Normocephalic atraumatic. Neck: Supple, no lymphadenopathy. No JVD. Nontender. Cardiovascular: Regular rate and rhythm. No murmurs. Respiratory: No respiratory distress. Clear to auscultation bilaterally. Abdominal: Soft, moderate right lower quadrant tenderness to palpation, nondistended, normal bowel sounds. No guarding, rebound, or peritoneal signs. Back: Moderate right CVA tenderness. Extremities: Nontender, no edema. Skin: Normal color, no rash. Neurologic: Alert and oriented ?3. Cranial nerves II through XII are intact. Normal strength and sensation. Psych: Normal affect. Test Results: CBC shows white count 14.5 with 84 segmented neutrophils and 8 lymphocytes. Chem-7 is normal. LFTs are normal. UA shows leukocytes, blood, 50-100 white blood cells, 5-10 epithelial cells. This was sent for culture. Clinical Impression(s) from Imaging Studies Abdomen/Pelvis CT 01/11/21 17:55 IMPRESSION: Findings suspicious for acute infectious/inflammatory cystitis. No radiopaque urolithiasis on either side. Fat stranding around the left kidney, due to recent passage of a stone or acute pyelonephritis. Clinical correlation recommended. Electronically Signed: Mikhail Fishman MD at 18:51 EDT Tel , Service support , Emergency Department Course and Treatment: Patient had an IV placed. She is in liter normal saline. She is given morphine and Zofran IV. She is resting more comfortably. Urine culture was sent. Patient given Rocephin IV. Treatment Plan: Patient will be discharged with [place], Zofran, and Cipro. Instructed to follow-up with her primary care physician in 2 days to get the results of her urine culture. Return to the emergency department for any worsening symptoms. Disposition: To home in improved and stable condition. Impression: 1. Pyelonephritis. This note was generated with [employer] dictation software. It may contain incorrect words, spelling, and punctuation that were not noted in review of the chart prior to signing ED Disposition - Plan for ED Patient: Instructions: ED Pyelonephritis, Female (Adult) Prescriptions: Ciprofloxacin [Cipro] 500 mg PO BID #14 tablet Hydrocodone Bitart/Apap 5-325 [[place] 5MG-325MG] 1 tablet PO Q4H PRN PRN 2 Days #10 tablet PRN Reason: Pain Ondansetron [Zofran Odt] 4 mg PO Q8H PRN PRN #10 tablet PRN Reason: Nausea Referrals: Sugar Rodrigez MD [Primary Care Provider] - 2 Days
[2021-01-11 18:07] LABS: Bacteria 0 SEEN /hpf (None Seen); Mucous, Urine 0 SEEN /hpf (<or=2+)
[2021-01-11 18:08] LABS: Absolute Lymphocyte Count 1.16 X10^3/uL (0.83-4.51); Absolute Neutrophil Count 12.2 X10^3/uL (2.0-7.7); Basophil# 0.03 X10^3/uL; Basophil% 0.2 % (0-1); Color, Urine Yellow (Yellow); Eosinophil# 0.02 X10^3/uL; Eosinophils% 0.1 % (0-5); Glucose, Dipstick Normal (Normal); Hemoglobin 14.9 g/dL (12.0-15.0); Ketone-Dipstick Negative (Negative); Leukocyte Esterase-Dipstick 500 /ul (Negative); Lymphocyte # 1.16 X10^3/ul (0.83-4.51); Mean Corp Hgb Conc 33.9 g/dL (32-36); Mean Corpuscular Hgb 31.1 pg (27.0-32.0); Mean Corpuscular Volume 91.9 fL (81-99); Mean Platelet Vol. 9.4 fl (6.2-12.0); Monocyte# 0.99 X10^3/uL; Monocyte% 6.9 % (0-10); NRBC Flagged by Analyzer 0 % (0-5); Neutrophil # 12.17 X10^3/uL (2.7-7.7); Neutrophil % 84.2 % (47-70); Nitrite-Dipstick Negative (Negative); Occult Blood-Urine 150 /ul (Negative); Platelet Count 277 K/mm3 (150-450); Protein-Dipstick 100 mg/dl (Negative); RBC Distribution Width CV 12.7 % (11.6-14.6); RBC Distribution Width SD 42.9 fl (35.1-43.9); Red Blood Count 4.79 M/mm3 (4.2-5.4); Specific Gravity, Urine 1.015 (1.002-1.030); Urine Bilirubin Dipstick Negative (Negative); Urine Clarity Sl. Cloudy (Clear); Urine Urobilinogen 1 mg/dl (Normal); White Blood Count 14.5 K/mm3 (4.4-11.0)
[2021-01-11 18:15] LABS: Squamous Epithelial Cells - UA 5-10 SEEN /hpf (5-10); White Blood Cells 50-100 SEEN /hpf (0-5)
[2021-01-11 18:16] LABS: Red Blood Cells-Urine 0-5 SEEN /hpf (0-5)
[2021-01-11] MEDS: 0.9% Normal Saline 1,000 ML 1000 ML IV (18:18)
[2021-01-11] MEDS: Ceftriaxone 1 GM/50 ML BAG IV (18:41)
[2021-01-11 19:17] LABS: ALB/GLOB Ratio 0.8 RATIO (0.9-2.4); AST(SGOT) 30 U/L (15-37); Alanine Aminotransfer ALT/SGPT 23 U/L (13-56); Albumin, Serum 3.2 g/dL (3.2-5.0); Alkaline Phosphatase 102 U/L (45-117); Anion Gap 4 (5-15); BUN 9 mg/dL (7-18); BUN/Creat Ratio 11.8 RATIO (10-20); Calcium,Total 8.8 mg/dL (8.5-10.1); Chloride 103 mmol/L (98-107); Creatinine, Serum 0.76 mg/dL (0.55-1.02); EST Glomerular Filtration Rate 83 mL/min (>60); Est Glom Filt Rate - Afr Amer 101 mL/min (>60); Estimated Creatinine Clearance 69.19 ml/min; Glucose 106 mg/dL (74-106); Potassium 3.8 mmol/L (3.5-5.1); Protein, Total 7.2 g/dL (6.4-8.2); Sodium Level 136 mmol/L (136-145)
[2021-01-11 20:06] VITALS: BP 142/68; PULSE 89; RESP 18; O2SAT 97
== END 2021-01-11 20:06 | disposition home or self-care (01) ==
LOC: ED 18:09
PROVIDERS: Emergency Provider Emergency Medicine; PCP Internal Medicine
DX: N12 Tubulo-interstitial nephritis, not specified as acute or chronic (principal); Z72.0 Tobacco use
CPT/HCPCS: 74176; 80053; 81001; 85025; 87077; 87086; 87088; 87186; 96361; 96365; 96375; 96376; 99284; J7030; A4216; J2405

== ENCOUNTER 2021-05-20 01:23 | Emergency (ER) | payer MEDICAID, SELFPAY ==
[2021-05-20 01:23] VITALS: PULSE 76; RESP 16; TEMP 35.6; O2SAT 98; BMI 26.6
[2021-05-20 01:27] VITALS: O2SAT 98
[2021-05-20 01:28] VITALS: BP 127/78
--- NOTE | 2021-05-20 02:34 | RAD_ITS ---
HISTORY: cough, ?COVID EXAMINATION/TECHNIQUE: XR Chest 1 View: COMPARISON: September 04, 2018 FINDINGS: LINES/DEVICES: None. LUNGS: No airspace consolidation. Unremarkable interstitium. No effusion. No pneumothorax. MEDIASTINUM: No cardiomegaly. MUSCULOSKELETAL: No acute osseous finding. Dextrocurvature of the thoracic spine. RAD/Chest 1 View (Portable) IMPRESSION: No evidence of acute cardiopulmonary process. at 0344 Reported and signed by: Colt Cortes MD Electronically Signed: Colt Cortes MD at 3:42 EDT Tel , Service support ,
--- NOTE | 2021-05-20 02:55 | EX.ED.DYSGE1 ---
HPI History of Present Illness Chief Complaint: Cold Sx Informant: patient Narrative Narrative: Patient presents because she says she is just scared she might have Covid. She has 3 or 4 days of loss of taste and smell. She has slight myalgias. She has decreased energy overall. She may have had 1 or 2 soft stools but no diarrhea or vomiting. No fevers. She occasionally coughs but she is a smoker. She is not short of breath. She went to urgent care this morning to get a Covid test. She was told it will be back at 6 AM which is about 3-1/2 hours away. Patient is a smoker and was counseled to quit. Patient also has not had any Covid vaccines. PFSH PFSH Home Medications ciprofloxacin HCl 500 mg PO BID #14 tab 01/11/21 [Rx Last Taken Unknown] ondansetron 4 mg PO Q8H PRN PRN #10 tablet 01/11/21 [Rx Last Taken Unknown] Allergy/AdvReac Type Severity Reaction Status Date / Time aspirin AdvReac NOSE BLEED Verified 01/11/21 17:41 Surgical History Hx of tubal ligation Social History Smoking Status: Current every day smoker tobacco type: cigarettes ROS ROS ED Constitutional Constitutional ED: Denies fever(s) Eyes Eyes: Denies blurry vision ENT ENT ED: Denies rhinorrhea Cardiovascular Cardiovascular: Denies chest pain or palpitations Respiratory/Chest Respiratory/Chest: Reports cough; Denies dyspnea or sputum Gastrointestinal Gastrointestinal: Reports diarrhea; Denies nausea or vomiting Genitourinary Genitourinary ED: Denies dysuria or hematuria Musculoskeletal Musculoskeletal: Reports myalgias Integumentary Denies rash Neurologic Neurologic: Denies headache(s) or weakness Psychiatric Psychiatric: Reports anxiety Endocrine Endocrinology: Denies polyuria Allergic/Immunologic Allergic/Immunologic ED: Denies urticaria EXAM Physical Exam Const Vital Signs: 05/20/21 01:23 05/20/21 01:27 05/20/21 01:28 Temperature 96.1 F L Temperature Source Temporal Pulse Rate 76 Respiratory Rate 16 Respiratory Effort Normal Respiratory Depth Normal Respiratory Pattern Normal Blood Pressure 127/78 H Blood Pressure Mean 94 Pulse Ox 98 Oxygen Delivery Method Room Air Room Air Positive well nourished and well developed General Appearance ED: well developed and NAD HEENT Negative for trauma or tenderness Eyes EOMs intact bilaterally General Eye ED: Negative for pale conjunctiva Neck no JVD Resp normal respiratory effort and clear to auscultation bilaterally Auscultation: Negative for rales, rhonchi or wheezes Cardio regular rate and regular rhythm GI normal to inspection, nondistended, normoactive bowel sounds and non-tender Palpation: soft Back/Spine no CVA tenderness Extremity normal to inspection Neuro oriented x3 Sensorium / Orientation: alert Psych mental status grossly normal Skin no rashes or lesions noted MDM MDM MDM Narrative Medical decision making narrative: 1 view chest x-ray looked at by me shows no sign of acute infiltrative process. No enlarged heart. No pneumothorax. Does not have the typical appearance of Covid. Patient is not short of breath coughing or hypoxic. She is not vaccinated but is having some symptoms of Covid. There is a fair chance she is positive. We discussed reasons to return. She will get her test results in a couple hours. Discharge Plan Triage Chief Complaint: Cold Sx ED Provider: Eric Harry Dx/Rx/DC Orders Clinical Impression: COVID Instructions: Symptoms of COVID-19 Infection Prescriptions: No Action ciprofloxacin HCl 500 MG tablet 500 mg PO BID Qty: 14 RF: 0 ondansetron 4 MG tablet 4 mg PO Q8H PRN PRN (Reason: Nausea) Qty: 10 RF: 0 Primary Care Provider: Sugar Rodrigez Referrals: Sugar Rodrigez MD [Primary Care Provider] - 10-14 Days if not better Disposition Disposition: Home, Self Care
[2021-05-20 03:57] VITALS: PULSE 78; RESP 16; O2SAT 97
== END 2021-05-20 03:57 | disposition home or self-care (01) ==
PROVIDERS: Emergency Provider Emergency Medicine; PCP Internal Medicine
DX: U07.1 COVID-19 (principal); F17.210 Nicotine dependence, cigarettes, uncomplicated
CPT/HCPCS: 71045; 99282

== ENCOUNTER 2022-02-05 06:15 | Day surgery (SDC) | payer MEDICAID, SELFPAY ==
--- NOTE | 2022-01-11 14:39 | EKG12_ITS ---
Test Reason : PRE-OP Blood Pressure : / mmHG Vent. Rate : 073 BPM Atrial Rate : 073 BPM P-R Int : 158 ms QRS Dur : 096 ms QT Int : 410 ms P-R-T Axes : 060 -06 015 degrees QTc Int : 451 ms Normal sinus rhythm Left ventricular hypertrophy Abnormal ECG Confirmed by ALFONSO DUNCAN, AGATHA ([id number]), supervising film or videotape editor ELIZABETH MIGUEL ([id number]) on 01/12/2022 9:04:37 AM Referred By: SALINAS Confirmed By:AGATHA HAMILTON MD
[2022-01-11 15:32] LABS: Absolute Lymphocyte Count 2.18 X10^3/uL (0.83-4.51); Absolute Neutrophil Count 6.1 X10^3/uL (2.0-7.7); Basophil# 0.05 X10^3/uL; Basophil% 0.6 % (0-1); Eosinophil# 0.17 X10^3/uL; Eosinophils% 1.9 % (0-5); Hematocrit 37.7 % (37-47); Hemoglobin 12.7 g/dL (12.0-15.0); Lymphocyte # 2.18 X10^3/ul (0.83-4.51); Mean Corp Hgb Conc 33.7 g/dL (32-36); Mean Corpuscular Hgb 31.5 pg (27.0-32.0); Mean Corpuscular Volume 93.5 fL (81-99); Mean Platelet Vol. 8.8 fl (6.2-12.0); Monocyte# 0.51 X10^3/uL; Monocyte% 5.6 % (0-10); NRBC Flagged by Analyzer 0 % (0-5); Neutrophil # 6.13 X10^3/uL (2.7-7.7); Neutrophil % 67.3 % (47-70); Platelet Count 291 K/mm3 (150-450); RBC Distribution Width CV 12.4 % (11.6-14.6); RBC Distribution Width SD 42.7 fl (35.1-43.9); Red Blood Count 4.03 M/mm3 (4.2-5.4); White Blood Count 9.1 K/mm3 (4.4-11.0)
[2022-01-11 15:48] LABS: Hemoglobin A1c 5.4 % (3.8-5.6)
[2022-01-11 15:52] LABS: Anion Gap 6 (5-15); BUN 10 mg/dL (7-18); BUN/Creat Ratio 13.4 RATIO (10-20); Calcium,Total 8.5 mg/dL (8.5-10.1); Chloride 104 mmol/L (98-107); Creatinine, Serum 0.74 mg/dL (0.55-1.02); EST Glomerular Filtration Rate 85 mL/min (>60); Est Glom Filt Rate - Afr Amer 103 mL/min (>60); Glucose 80 mg/dL (74-106); Potassium 3.4 mmol/L (3.5-5.1); Sodium Level 139 mmol/L (136-145)
[2022-02-05] VITALS (10 sets, daily range): BP systolic 120–136; BP diastolic 66–79; PULSE 65–92; RESP 14–24; TEMP 36.1–36.6; O2SAT 91–98; BMI 31.6
[2022-02-05] MEDS: Lactated Ringers 1,000 ML 15 ML IV (06:51)
[2022-02-05] MEDS: Cefazolin 2 GM in 0.9% Normal Saline 100 ML IV (09:07)
[2022-02-05] MEDS: Lidocaine 1% /Epi 1:100 (20ml) 20 ML Vial (09:30)
[2022-02-05] MEDS: Epinephrine (1 mg/ml) 1 MG/ML VIAL (10:22)
--- NOTE | 2022-02-05 10:46 | PCM.OPRPT ---
Report of Operation Date of Procedure: 02/05/22 Pre-Operative Diagnosis: Subacromial impingement syndrome, AC joint arthritis, bicipital tendonitis, rotator cuff tear left shoulder Post-Operative Diagnosis: same Surgery/Procedure Performed:: ASD, Elías procedure, biceps tenotomy, RCR left shoulder Surgeon: Gurmeet Burger billing checker: Kofi Wren Type of Anesthesia: General/Regional Anesthesiologist: Fausto Gray Admit VTE Documentation VTE Present on Admission: No VTE Mechan Device Prophylaxis: SCD's VTE Pharm Prophylaxis ordered?: No Reason prophylaxis not ordered:: Treatment Not Indicated
== END 2022-02-05 13:15 | disposition home or self-care (01) ==
LOC: SDC 06:16 → AC 06:16
PROVIDERS: PCP Internal Medicine; Referring Provider Orthopaedic Surgery; Visit Provider Orthopaedic Surgery
PROC: (CPT 29827; principal; 2022-02-05 08:40)
DX: M75.122 Complete rotator cuff tear or rupture of left shoulder, not specified as traumatic (principal); M19.012 Primary osteoarthritis, left shoulder; M75.22 Bicipital tendinitis, left shoulder; F17.210 Nicotine dependence, cigarettes, uncomplicated
CPT/HCPCS: 29827; 29826; 29824; 01630; 64415; 36415; 80048; 83036; 85025; 93005; J7120; J2405

== ENCOUNTER 2022-04-29 10:51 | Emergency (ER) | payer MEDICAID, SELFPAY ==
[2022-04-29 10:52] VITALS: BP 142/75; PULSE 99; RESP 16; TEMP 36.9; O2SAT 95; BMI 31.9
--- NOTE | 2022-04-29 11:02 | CT_ITS ---
EXAM: CT HEAD WITHOUT INTRAVENOUS CONTRAST CLINICAL INDICATION: trauma TECHNIQUE: Multiple axial images were obtained of the head without intravenous contrast. This CT exam was performed using one or more of the following dose reduction techniques: automated exposure control, adjustment of the mA and/or kV according to patient size, and/or use of iterative reconstruction technique. This report was created using [employer] technology. COMPARISON: None. FINDINGS: BRAIN AND EXTRA-AXIAL SPACES: Normal. No intra- or extra-axial hemorrhage. No evidence of acute infarct. No intracranial mass or mass effect. There is preservation of the salinas/white matter interface. Posterior fossa structures are unremarkable. Ventricles are appropriate for age. No hydrocephalus. Basal cisterns are patent. BONES/JOINTS: Normal. No discrete lytic or blastic abnormalities. SINUSES: Unremarkable as visualized. Clear. MASTOID AIR CELLS: Normal. Clear. ORBITS: Visualized globes, extraocular muscles, optic nerves and retrobulbar fat appear unremarkable. CT/Brain/Head without Contrast IMPRESSION: Normal CT brain without intravenous contrast. Electronically Signed: Raheem Peguero MD at 12:37 EDT ,
--- NOTE | 2022-04-29 11:02 | CT_ITS ---
EXAM: CT CERVICAL SPINE WITHOUT INTRAVENOUS CONTRAST CLINICAL INDICATION: trauma TECHNIQUE: Helically acquired images were obtained of the cervical spine without intravenous contrast. 2D reformatted images were reviewed. This CT exam was performed using one or more of the following dose reduction techniques: automated exposure control, adjustment of the mA and/or kV according to patient size, and/or use of iterative reconstruction technique. This report was created using [employer] report generation technology. COMPARISON: None. FINDINGS: VERTEBRAE: No fracture. No traumatic subluxation. No discrete lytic or blastic abnormality. Normal alignment. Normal craniocervical junction and cervicothoracic junction. DISCS/SPINAL CANAL/NEURAL FORAMINA: Multilevel facet arthropathy.Disc heights are preserved. No critical stenosis. SOFT TISSUES: Normal. No prevertebral soft tissue swelling. LYMPH NODES: Normal. No cervical adenopathy. LUNG APICES: Unremarkable as visualized. Clear. OTHER FINDINGS: CT/Spine Cervical without Contras IMPRESSION: No acute findings in the cervical spine. Electronically Signed: Raheem Peguero MD at 12:38 EDT ,
--- NOTE | 2022-04-29 11:12 | RAD_ITS ---
STUDY: X-RAY - RIGHT HAND REASON FOR EXAM: Female, 57 years old. PARTIAL AMPUTATION TECHNIQUE: 3 view(s) of the hand. COMPARISON: None. FINDINGS: A comminuted fracture is present across the base and mid shaft of the middle phalanx of the fifth digit with extensive laceration and swelling of the surrounding soft tissues. No additional fractures are seen. Normal radiocarpal articulation. Normal distal radioulnar joint. Normal visualized carpal bones. Normal carpal articulations Normal carpometacarpal articulation of the thumb. Normal second through fifth carpometacarpal joints. Normal metacarpi. Normal metacarpophalangeal joint of the thumb. Normal interphalangeal joint of the thumb. Normal proximal and distal phalanges of the thumb. Normal metacarpophalangeal joints of the second through fifth fingers. Normal proximal and distal interphalangeal joints of the second through fifth fingers. Normal phalanges of the second through fifth fingers. RAD/Hand Min 3 Views IMPRESSION: 1. A comminuted fracture is present across the base and mid shaft of the middle phalanx of the fifth digit with extensive laceration and swelling of the surrounding soft tissues. No additional fractures are seen. Electronically Signed: Nahun Lugo MD at 12:04 EDT ,
[2022-04-29] MEDS: Morphine 4 MG/ML Syringe IV ×3 (11:19→13:09)
[2022-04-29] MEDS: Ondansetron 4 MG/2 ML Vial IV (11:19)
[2022-04-29] MEDS: Diphth,Pertuss(Acell),Tet Vac 0.5 ML Vial IM (11:20)
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
[2022-04-29] MEDS: Lidocaine 1% (20 ml mdv) 20 ML Vial INFILT (11:45)
[2022-04-29] MEDS: Cefazolin 1 GM/50 ML BAG IV (11:45)
--- NOTE | 2022-04-29 12:38 | NURSING ---
spoke with Ermelinda from [facility], 20min eta at this time to get pt to [facility]
--- NOTE | 2022-04-29 12:54 | ED.RN ---
Report given to [facility] ED Charge nurse.
[2022-04-29 12:59] VITALS: BP 140/77; PULSE 80; RESP 18; TEMP 36.7; O2SAT 97
--- NOTE | 2022-04-29 13:16 | NURSING ---
spoke with Shaheed from [facility] new ETA is 1:25 at this time
== END 2022-04-29 13:52 | disposition short-term general hospital (02) ==
PROVIDERS: Emergency Provider Emergency Medicine; PCP Internal Medicine; Visit Provider Emergency Medicine
DX: S01.81XA Laceration without foreign body of other part of head, initial encounter (principal); S62.626B Displaced fracture of middle phalanx of right little finger, initial encounter for open fracture; S40.812A Abrasion of left upper arm, initial encounter; F17.210 Nicotine dependence, cigarettes, uncomplicated; V19.9XXA Pedal cyclist (driver) (passenger) injured in unspecified traffic accident, initial encounter; Y93.55 Activity, bike riding; Z23 Encounter for immunization
CPT/HCPCS: 12001; 70450; 72125; 73130; 90715; 96365; 96375; 96376; 99285; A4216; J2405

== ENCOUNTER 2022-06-15 18:23 | Emergency (ER) | payer MEDICAID, SELFPAY ==
[2022-06-15 18:25] VITALS: BP 132/103; PULSE 102; RESP 16; TEMP 37; O2SAT 97; BMI 31.4
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
[2022-06-15 21:22] VITALS: RESP 18
--- NOTE | 2022-06-15 21:24 | RAD_ITS ---
EXAM: XR RIGHT FINGERS, 2 OR MORE VIEWS CLINICAL INDICATION: infection TECHNIQUE: Frontal, lateral and oblique views of the fingers of the right hand. This report was created using [employer] report generation technology. COMPARISON: 04/29/2022 FINDINGS: BONES/JOINTS: Orthopedic pins seen in the fifth finger extending through the distal phalanx through the distal and proximal interphalangeal joints. There is a nonhealing fracture through the base of the middle fifth phalanx. No sclerotic or destructive changes observed. SOFT TISSUES: There is a large amount of soft tissue swelling present. No radiopaque foreign body. RAD/Finger(s) Min 2 Views IMPRESSION: Orthopedic pinning through the fifth finger. There is a fracture through the base of the middle fifth phalanx. There is a large amount of soft tissue swelling on today''s exam. Electronically Signed: Lázaro Crawford MD at 21:49 EDT ,
[2022-06-15 21:27] LABS: Absolute Lymphocyte Count 1.75 X10^3/uL (0.83-4.51); Absolute Neutrophil Count 8.5 X10^3/uL (2.0-7.7); Basophil# 0.03 X10^3/uL; Basophil% 0.3 % (0-1); Eosinophil# 0.04 X10^3/uL; Eosinophils% 0.4 % (0-5); Hematocrit 39.8 % (37-47); Hemoglobin 13.1 g/dL (12.0-15.0); Lymphocyte # 1.75 X10^3/ul (0.83-4.51); Lymphocyte % 15.8 % (19-41); Mean Corp Hgb Conc 32.9 g/dL (32-36); Mean Corpuscular Hgb 31.6 pg (27.0-32.0); Mean Corpuscular Volume 95.9 fL (81-99); Mean Platelet Vol. 8.4 fl (6.2-12.0); Monocyte# 0.78 X10^3/uL; NRBC Flagged by Analyzer 0 % (0-5); Neutrophil # 8.45 X10^3/uL (2.7-7.7); Neutrophil % 76.1 % (47-70); Platelet Count 343 K/mm3 (150-450); RBC Distribution Width CV 13.5 % (11.6-14.6); RBC Distribution Width SD 47.6 fl (35.1-43.9); Red Blood Count 4.15 M/mm3 (4.2-5.4); White Blood Count 11.1 K/mm3 (4.4-11.0)
[2022-06-15 21:42] LABS: Anion Gap 6 (5-15); BUN 9 mg/dL (7-18); Calcium,Total 9.6 mg/dL (8.5-10.1); Chloride 104 mmol/L (98-107); Creatinine, Serum 0.64 mg/dL (0.55-1.02); EST Glomerular Filtration Rate 101 mL/min (>60); Est Glom Filt Rate - Afr Amer 122 mL/min (>60); Estimated Creatinine Clearance 83.75 ml/min; Glucose 109 mg/dL (74-106); Potassium 3.8 mmol/L (3.5-5.1); Sodium Level 140 mmol/L (136-145)
[2022-06-15 21:46] LABS: Lactic Acid 0.7 mmol/L (0.4-1.9)
[2022-06-15 23:28] VITALS: BP 143/84; PULSE 86; RESP 18; TEMP 36.6; O2SAT 99
--- NOTE | 2022-06-16 | ED.RN ---
Pt wanted IV pulled out so that she could leave. Pt was informed about obtaining full course of IV antibiotics and still demanded to leave. IV was pulled out and IV vancomycin was D/C.
== END 2022-06-16 00:07 | disposition home or self-care (01) ==
PROVIDERS: Emergency Provider Emergency Medicine; PCP Internal Medicine; Visit Provider Emergency Medicine
DX: T81.49XA Infection following a procedure, other surgical site, initial encounter (principal); L03.011 Cellulitis of right finger; F17.210 Nicotine dependence, cigarettes, uncomplicated; F17.290 Nicotine dependence, other tobacco product, uncomplicated
CPT/HCPCS: 73140; 80048; 83605; 85025; 87040; 96365; 96366; 96368; 99284; J7040; J7050

== ENCOUNTER 2022-06-19 16:23 | Emergency (ER) | payer MEDICAID, SELFPAY ==
[2022-06-19 16:25] VITALS: BP 110/84; PULSE 104; RESP 18; TEMP 36.1; O2SAT 96; BMI 31.3
[2022-06-19 16:28] VITALS: BP 110/84; PULSE 104; RESP 18; TEMP 36.1; O2SAT 96
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
[2022-06-19 17:41] VITALS: BP 110/84; PULSE 104; RESP 18; TEMP 36.1; O2SAT 96
--- NOTE | 2022-06-19 18:08 | RAD_ITS ---
STUDY: X-RAY - RIGHT HAND, ATTENTION 5 FINGER REASON FOR EXAM: Female, 57 years old. right small finger infection TECHNIQUE: 06/15/2022 view(s) of the finger were obtained. COMPARISON: None. FINDINGS: Normal metacarpal head. Normal metacarpophalangeal joint. Normal proximal phalanx. Wire fixation of the transverse fracture of the middle phalanx. Normal distal phalanx. Normal proximal interphalangeal joint. Normal distal interphalangeal joint. Diffuse soft tissue swelling worrisome for cellulitis. RAD/Finger(s) Min 2 Views IMPRESSION: 1. Status post wire fixation of fracture the middle phalanx which is unchanged. 2. Diffuse soft tissue swelling worrisome for cellulitis. Clinical correlation is recommended. Electronically Signed: Cj Nicolas MD at 18:39 EDT ,
[2022-06-19 18:11] LABS: Absolute Lymphocyte Count 1.55 X10^3/uL (0.83-4.51); Absolute Neutrophil Count 5.8 X10^3/uL (2.0-7.7); Basophil# 0.04 X10^3/uL; Basophil% 0.5 % (0-1); Eosinophil# 0.09 X10^3/uL; Eosinophils% 1.1 % (0-5); Hematocrit 38.8 % (37-47); Hemoglobin 12.9 g/dL (12.0-15.0); Lymphocyte # 1.55 X10^3/ul (0.83-4.51); Lymphocyte % 18.9 % (19-41); Mean Corp Hgb Conc 33.2 g/dL (32-36); Mean Corpuscular Hgb 31.5 pg (27.0-32.0); Mean Corpuscular Volume 94.6 fL (81-99); Mean Platelet Vol. 8.3 fl (6.2-12.0); Monocyte# 0.68 X10^3/uL; Monocyte% 8.3 % (0-10); NRBC Flagged by Analyzer 0 % (0-5); Neutrophil # 5.82 X10^3/uL (2.7-7.7); Neutrophil % 70.8 % (47-70); Platelet Count 339 K/mm3 (150-450); RBC Distribution Width SD 45.2 fl (35.1-43.9); White Blood Count 8.2 K/mm3 (4.4-11.0)
[2022-06-19 18:22] VITALS: BP 118/69; PULSE 80; RESP 16; TEMP 36.8; O2SAT 98
[2022-06-19 18:25] LABS: Anion Gap 7 (5-15); BUN 9 mg/dL (7-18); BUN/Creat Ratio 13.9 RATIO (10-20); Calcium,Total 9.3 mg/dL (8.5-10.1); Chloride 106 mmol/L (98-107); Creatinine, Serum 0.65 mg/dL (0.55-1.02); EST Glomerular Filtration Rate 100 mL/min (>60); Est Glom Filt Rate - Afr Amer 121 mL/min (>60); Estimated Creatinine Clearance 82.46 ml/min; Glucose 122 mg/dL (74-106); Potassium 3.7 mmol/L (3.5-5.1); Sodium Level 142 mmol/L (136-145)
[2022-06-19 18:31] VITALS: BP 112/55; PULSE 79; RESP 14; O2SAT 99
== END 2022-06-19 19:48 | disposition short-term general hospital (02) ==
PROVIDERS: Emergency Provider Emergency Medicine; PCP Internal Medicine; Visit Provider Emergency Medicine
DX: T81.49XA Infection following a procedure, other surgical site, initial encounter (principal); L08.9 Local infection of the skin and subcutaneous tissue, unspecified; F17.210 Nicotine dependence, cigarettes, uncomplicated; I10 Essential (primary) hypertension; M79.89 Other specified soft tissue disorders
CPT/HCPCS: 73140; 80048; 85025; 96365; 99284; J7050; A4216; J0295

== ENCOUNTER → 2022-07-31 | Outpatient (CLI) | payer MEDICAID, SELFPAY ==
--- NOTE | 2022-07-31 09:26 | MRI_ITS ---
INDICATION: STRAIN EXAMINATION: MRI - LEFT MR Shoulder W/O Contrast TECHNIQUE: Multiplanar and multisequence MR images of the left shoulder. IV Contrast Dosage and Agent: None. COMPARISON: MRI shoulder November 10, 2021. Humerus radiograph October 30, 2018. FINDINGS: BONE: Anterior lateral humeral head tendon anchors noted. Mild intraosseous edema in the greater tuberosity. Otherwise normal bone marrow signal. No aggressive osseous lesion. ACROMIOCLAVICULAR JOINT: Acromioclavicular space widening with distal clavicular osteolysis. Partial geyser of subacromial fluid extending into the acromioclavicular joint space. No clavicular elevation. Coracoclavicular ligaments are intact. No significant lateral acromial tilt. SUBACROMIAL-SUBDELTOID SPACE: Large bursal fluid collection GLENOHUMERAL JOINT: Small joint effusion with extension into the subcoracoid recess. Normal alignment. Articular cartilage intact. Minimal humeral osteophyte formation. ROTATOR CUFF: Complete tear of supraspinatus tendon with retraction to the level of the acromion. Infraspinatus tendon, teres minor, subscapularis are intact. Anterior and lateral humeral tendon anchors noted. Supraspinatus muscle is retracted without definitive intramuscular fatty atrophy. LABRUM: Grossly intact, limited evaluation on non-arthrographic exam. BICEPS TENDON: The extra-articular biceps tendon is in the bicipital groove. Increased signal within intra-articular biceps tendon compatible with tendinosis OTHER SOFT TISSUES: Unremarkable. MRI/Upper Ext Joint Only(Routine) IMPRESSION: Findings concerning for complete recurrent tear of supraspinatus tendon with retraction to the level of the acromion. Rotator cuff tendon anchors are noted in the anterolateral humeral head. Joint effusion extending into subacromial subdeltoid bursa, acromioclavicular joint, subcoracoid recess. Mild humeral osteophyte formation. Intra-articular biceps tendinosis. Electronically Signed: Colt Cortes MD at 7:38 EST ,
== END | disposition home or self-care (01) ==
LOC: MRI 09:10
PROVIDERS: PCP Internal Medicine; Referring Provider Orthopaedic Surgery; Visit Provider Orthopaedic Surgery
DX: S46.012D Strain of muscle(s) and tendon(s) of the rotator cuff of left shoulder, subsequent encounter (principal)
CPT/HCPCS: 73221

== ENCOUNTER 2023-03-07 13:55 | Emergency (ER) | payer MEDICAID, SELFPAY ==
[2023-03-07 13:56] VITALS: BP 145/100; PULSE 92; RESP 16; TEMP 36.1; O2SAT 98; BMI 33.6
--- NOTE | 2023-03-07 14:49 | EX.ED.DYSGE1 ---
HPI History of Present Illness Chief Complaint: General Illness [facility] Medical History Amputation of right little finger Shortness of breath on exertion Smoker Wears glasses Home Medications amoxicillin 875 mg-potassium clavulanate 125 mg tablet 1 tab PO BID #20 tabs 06/15/22 [Rx Last Taken Unknown] Allergy/AdvReac Type Severity Reaction Status Date / Time aspirin AdvReac NOSE BLEED Verified 03/07/23 13:59 Surgical History History of carpal tunnel surgery of right wrist Hx of rotator cuff surgery Hx of tubal ligation Social History Smoking Status: Current every day smoker tobacco type: cigarettes and e-cigarettes substance use type: does not use EXAM Physical Exam Const Vital Signs: 03/07/23 13:56 03/07/23 15:52 03/07/23 15:54 Temperature 97.0 F L Temperature Source Temporal Pulse Rate 92 72 Respiratory Rate 16 15 Respiratory Effort Normal Non-Labored Respiratory Pattern Normal Blood Pressure 145/100 H 108/76 Blood Pressure Mean 115 Pulse Ox 98 98 Oxygen Delivery Method Room Air MDM MDM MDM Narrative Medical decision making narrative: HISTORY OF PRESENT ILLNESS: 57-year-old female here with sore throat cough, congestion and rib pain. States she was seen in urgent care few days ago and was prescribed Augmentin. She states she has been on antibiotics for 4 days of 7. States she still feels horrible. She describes sore throat, congestion and cough. She notes right-sided rib pain with cough. Denies chest pain or shortness of breath. States has been compliant with oral antibiotic regimen. Any syncope or loss of consciousness. REVIEW OF SYSTEMS: Pertinent positives: Cough, congestion and rib pain Pertinent negatives: Syncope, chest pain PHYSICAL EXAM: Nursing triage notes reviewed, Vital signs reviewed Constitutional: please see mdm HENT: MMM Eyes: Pupils equal round and reactive to light, Extraocular muscles intact Neck: No stridor, no JVD, full neck ROM Lungs: Clear to auscultation, No wheezing or rales. No increased work of breathing, no conversational dyspnea, no accessory muscle use, no nasal flaring. No respiratory distress noted Heart: Regular rate and rhythm, No murmurs, No rubs and No gallops, 2+ distal pulses (radial, femoral, posterior tibial) in all extremities Abdomen: Soft, there is no tenderness, rigidity, rebound or guarding, no obvious peritoneal signs, no palpable pulsatile abdominal masses, no auscultated abdominal bruit : No CVAT Extremities: No edema Neuro: No focal neurological deficits, cranial nerves II through XII intact, 5/5 strength in all extremities. Intact sensation to light touch in all extremities, 2+ reflexes bilateral patella tendons. Normal gait. No ataxia. Skin: No rash or lesions noted MEDICAL DECISION MAKING: Chief Complaint: Cough, congestion External records reviewed: No recent ED visits Factors affecting care: Hypertension, depression, tobacco use, Social determinants of health: None History obtained from others: Consults: None ALL IMAGES (IF OBTAINED) HAVE BEEN PERSONALLY REVIEWED AND INTERPRETED BY MYSELF. MDM Narrative: I considered the following differential diagnosis: Bacterial was viral pharyngitis, pneumonia, viral illness such as flu or COVID Patient notes 6 days of symptoms and as such she is not a candidate for Tamiflu or Paxlovid. No indication for viral testing at this time. She is already prescribed Augmentin which is an acceptable antibiotic for bacterial infections of the HEENT area as well as pneumonia. No indication for chest x-ray at this time given would not change consultant (i.e. she is on Augmentin chest x-ray will be looking for pneumonia). She was ambulated here without significant hypoxia. She was instructed to take Tylenol and ibuprofen for pain and fever control. She instructed to continue antibiotics and to return if symptoms change or drastically worsened. The patient and/or family, caregivers express understanding. The patient and/or family, caregivers agrees with the plan. Total critical care time today provided was at least 0 minutes. This excludes separately billable procedures. Critical care time (if documented) is secondary to the patient having high probability of clinically significant/life threatening deterioration in the patient's condition which required my urgent intervention. Shared decision making: I will have a discussion with the patient and or visitors regarding risk/benefits of further testing or admission. They will be made aware of of the risk/benefits inherent in this decision they will be given the opportunity to voice understanding. Discharge Plan Triage Chief Complaint: General Illness ED Provider: Ulices Vasquez Dx/Rx/DC Orders Clinical Impression: Cough, Contusion of rib Instructions: Coughing Techniques Prescriptions: No Action amoxicillin-pot clavulanate 875-125 mg tablet 1 tab PO BID Qty: 20 0RF Stand Alone Forms: ED Work / School Excuse Primary Care Provider: Sugar Rodrigez Referrals: Sugar Rodrigez MD [Primary Care Provider] - Activity Restrictions/Additional Instructions: Thank you for trusting us with your care today! Please take Tylenol (2 pills, 650 mg), ibuprofen (2 pills, 400 mg) every 6 hours as needed for pain and fever control. Continue take antibiotics until course complete. Please return to the emergency department if your symptoms change or worsen. Specifically develop shortness of breath, lose consciousness, cannot try antibiotics by mouth. Please follow with your primary care physician for further outpatient evaluation and management. Disposition Disposition: Home, Self Care Discharge Date/Time: 03/07/23 15:55
[2023-03-07 15:15] VITALS: O2SAT 98
[2023-03-07 15:54] VITALS: BP 108/76; PULSE 72; RESP 15; O2SAT 98
== END 2023-03-07 15:55 | disposition home or self-care (01) ==
PROVIDERS: Emergency Provider Emergency Medicine; PCP Internal Medicine; Visit Provider Emergency Medicine
DX: S20.219A Contusion of unspecified front wall of thorax, initial encounter (principal); F17.210 Nicotine dependence, cigarettes, uncomplicated; I10 Essential (primary) hypertension; F32.A Depression, unspecified; F17.290 Nicotine dependence, other tobacco product, uncomplicated; X58.XXXA Exposure to other specified factors, initial encounter
CPT/HCPCS: 99282

== ENCOUNTER 2023-03-19 15:44 | Emergency (ER) | payer MEDICAID, SELFPAY ==
[2023-03-19 15:45] VITALS: PULSE 100; RESP 18; TEMP 35.8; O2SAT 97
[2023-03-19 15:46] VITALS: BP 119/70
--- NOTE | 2023-03-19 15:58 | EDS_ITS ---
HPI History of Present Illness Chief Complaint: Upper Extremity Injury Informant: patient Onset/Context/Timing Onset: Days Narrative Narrative: Patient presents with continued pain and swelling to her right fifth finger. Almost a year ago she had a near amputation of her right fifth finger. She was sent to [place] and had it surgically repaired. Since that time she is not able to bend her finger. Last week she was moving a recliner and had a crush injury to her right fifth finger between the recliner and the doorway. She still has some bruising. Due to continued pain she is requesting an x-ray to ensure she did not break anything or damage any hardware. [facility] Medical History Amputation of right little finger Shortness of breath on exertion Smoker Wears glasses Home Medications amoxicillin 875 mg-potassium clavulanate 125 mg tablet 1 tab PO BID #20 tabs 06/15/22 [Rx Last Taken Unknown] oxycodone-acetaminophen 5 mg-325 mg tablet (Percocet) 1 tab PO Q8H PRN pain 3 days #10 tabs 03/19/23 [Rx Last Taken Unknown] Allergy/AdvReac Type Severity Reaction Status Date / Time aspirin AdvReac NOSE BLEED Verified 03/19/23 15:46 Surgical History History of carpal tunnel surgery of right wrist Hx of rotator cuff surgery Hx of tubal ligation Social History Smoking Status: Current every day smoker tobacco type: cigarettes and e- cigarettes substance use type: does not use ROS ROS ED Constitutional Constitutional ED: Denies chills or fever(s) Eyes Eyes: Denies change in vision ENT ENT ED: Denies rhinorrhea Cardiovascular Cardiovascular: Denies chest pain Respiratory/Chest Respiratory/Chest: Denies cough or dyspnea Gastrointestinal Gastrointestinal: Denies abdominal pain, nausea or vomiting Musculoskeletal Musculoskeletal: Reports extremity pain; Denies back pain Integumentary Denies Abrasions or rash Neurologic Neurologic: Denies headache(s) or weakness Psychiatric Psychiatric: Denies anxiety or depression Allergic/Immunologic Allergic/Immunologic ED: Denies lip swelling or urticaria EXAM Physical Exam Const Vital Signs: 03/19/23 15:45 03/19/23 15:46 Temperature 96.4 F L Temperature Source Temporal Pulse Rate 100 Respiratory Rate 18 Blood Pressure 119/70 Blood Pressure Mean 86 Pulse Ox 97 Oxygen Delivery Method Room Air Positive well nourished and well developed General Appearance ED: well developed HEENT Reports moist mucous membranes Eyes EOMs intact bilaterally Neck supple Chest Wall inspection of chest normal Resp normal respiratory effort and clear to auscultation bilaterally Cardio regular rate and regular rhythm GI non-tender Extremity Extremity Narrative: Right fifth finger slightly edematous and tender palpation throughout. Good cap refill distally. Good sensation on testing. Neuro oriented x3 MDM MDM MDM Narrative Medical decision making narrative: Right fifth finger x-rays obtained. Differential diagnosis includes crush injury, fracture, sprain, strain. Treatment and Re-Evaluation Narrative: Right fifth finger x-ray per my interpretation reveals a proximal phalanx fracture. X-rays reviewed with the patient. She is placed in AlumaFoam splint. She will follow-up with her hand surgeon, Dr. Simon in [place]. I will write her a short course of Percocet to help with pain. Discharge Plan Triage Chief Complaint: Upper Extremity Injury ED Provider: Marilynn Patten Dx/Rx/DC Orders Clinical Impression: Finger fracture Instructions: ED Fracture, Finger, Closed Prescriptions: New oxycodone-acetaminophen [Percocet] 5-325 mg tablet 1 tab PO Q8H PRN (Reason: pain) 3 Days Qty: 10 0RF No Action amoxicillin-pot clavulanate 875-125 mg tablet 1 tab PO BID Qty: 20 0RF Primary Care Provider: Sugar Rodrigez Referrals: Sugar Rodrigez MD [Primary Care Provider] - Activity Restrictions/Additional Instructions: Follow-up with Dr. Simon. Call Tuesday for an appointment. Disposition Disposition: Home, Self Care
--- NOTE | 2023-03-19 16:10 | RAD_ITS ---
EXAM: XR RIGHT FINGERS, 2 OR MORE VIEWS CLINICAL INDICATION: injury -- 5th finger TECHNIQUE: Frontal, lateral and oblique views of the fingers of the right hand, with attention to the little finger. COMPARISON: Previous radiographs of 06/19/2022 and 06/15/2022. FINDINGS: BONES/JOINTS: Surgical fixation pins have been removed. There has been interval healing of the previously noted fracture of the little finger middle phalanx, with sclerosis and cortical thickening in the area of the old fracture. There is been interval development of acute oblique fracture line which extends through the base of the little finger proximal phalanx; the fracture fragments are slightly impacted and there is minimal dorsal angulation of the distal fracture fragment. No intra-articular extension of the acute fracture line is seen. The PIP joint little finger remains severely narrowed as on the prior radiographs. There is been interval development of rounded lucency with a slightly sclerotic margin at the distal end of the little finger middle phalanx, extending into the articular surface, suggesting erosive arthritis, and there has been interval development of mild degenerative spurring about the DIP joint of the finger. The articular surface of the little finger distal phalanx is intact. SOFT TISSUES: No opaque foreign body. Soft tissue swelling about the little finger phalanges, greatest about the proximal phalanx. RAD/Finger(s) Min 2 Views IMPRESSION: 1. Interval healing of the previously noted little finger middle phalangeal fracture. 2. Acute and slightly impacted fracture through the base of the little finger proximal phalanx. Electronically Signed: Lm Dailey MD at 16:29 EDT ,
== END 2023-03-19 16:31 | disposition home or self-care (01) ==
PROVIDERS: Emergency Provider Emergency Medicine; PCP Internal Medicine; Visit Provider Emergency Medicine
DX: S62.616A Displaced fracture of proximal phalanx of right little finger, initial encounter for closed fracture (principal); F17.210 Nicotine dependence, cigarettes, uncomplicated; Z89.021 Acquired absence of right finger(s); W23.1XXA Caught, crushed, jammed, or pinched between stationary objects, initial encounter; F17.290 Nicotine dependence, other tobacco product, uncomplicated
CPT/HCPCS: 29130; 73140; 99282

== ENCOUNTER 2023-12-06 16:27 | Emergency (ER) | payer MEDICAID, SELFPAY ==
[2023-12-06 16:28] VITALS: BP 132/78; PULSE 76; RESP 18; TEMP 36.6; O2SAT 99; BMI 30.9
--- NOTE | 2023-12-06 16:46 | EX.ED.UPPERE ---
HPI History of Present Illness Chief Complaint: Upper Extremity Injury Detail of Chief Complaint: Right forearm pain Informant: patient Occured/Mechanism Comment: Awoke this morning with pain Onset/Context/Timing Onset: Today Context: Sudden Onset Timing: Continuous Quality of Pain: Dull and Aching Location: Right forearm Current Severity: Mild Maximum Severity: Moderate Worsened by: Use of right upper extremity Relieved by: Nothing Associated Symptoms Associated Symptoms: Negative for Parasthesia, Weakness or Loss of Funtion Narrative Narrative: Patient is a 58-year-old iyee-bbiw-iylfetzo woman who presents with pain from the elbow to the proximal metacarpal bone of her right thumb. She denies paresthesia, anesthesia or motor weakness. There is no history of trauma. 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 She denies history of gout or pseudogout. She is not on a thiazide diuretic. She denies fever, chills or night sweats. She denies swelling of the right upper extremity. She denies paresthesia or anesthesia. Tetanus Immunization: Unknown Prior similar symptoms: No Recent Illness/Hospitalization: No PFSH PFSH Medical History Amputation of right little finger Shortness of breath on exertion Smoker Wears glasses Home Medications amoxicillin 875 mg-potassium clavulanate 125 mg tablet 1 tab PO BID #20 tabs 06/15/22 [Rx Last Taken Unknown] oxycodone-acetaminophen 5 mg-325 mg tablet (Percocet) 1 tab PO Q8H PRN pain 3 days #10 tabs 03/19/23 [Rx Last Taken Unknown] Allergy/AdvReac Type Severity Reaction Status Date / Time aspirin AdvReac NOSE BLEED Verified 12/06/23 16:28 Surgical History History of carpal tunnel surgery of right wrist Hx of rotator cuff surgery Hx of tubal ligation Social History Smoking Status: Current every day smoker tobacco type: cigarettes and e-cigarettes substance use type: does not use ROS ROS ED Constitutional Constitutional ED: Denies chills, fever(s), subjective, sweats or weight loss ENT ENT ED: Denies rhinorrhea or sore throat Cardiovascular Cardiovascular: Denies chest pain, palpitations or racing heartbeat Respiratory/Chest Respiratory/Chest: Denies cough, dyspnea or dyspnea on exertion Musculoskeletal Musculoskeletal: Denies myalgias or neck pain Integumentary Denies rash Neurologic Neurologic: Denies headache(s), paresthesias or weakness Hematologic/Lymphatic Hematologic/Lymphatic: Denies easy bleeding or easy bruising EXAM Physical Exam Const Vital Signs: 12/06/23 16:28 Temperature 97.8 F Temperature Source Oral Pulse Rate 76 Respiratory Rate 18 Blood Pressure 132/78 H Blood Pressure Mean 96 Pulse Ox 99 Oxygen Delivery Method Room Air Positive well nourished, well developed and obese General Appearance ED: well developed and NAD; Negative for cyanotic or diaphoretic Nutritional Appearance: obese HEENT Reports moist mucous membranes normocephalic and atraumatic Eyes PERRL and EOMs intact bilaterally Neck full ROM and supple Resp normal respiratory effort and clear to auscultation bilaterally Cardio regular rate, regular rhythm, S1 normal heart sound and no murmurs Extremity normal to inspection and full ROM Extremity Narrative: Axillary, median, radial and ulnar function intact. Patient has pain palpation over the radius and ulna. There is no pain ovation over the olecranon process or over the radial head with supination pronation. She has no pain the patient with lateral medial epicondyle. Radial pulses palpable. There is no pain the patient with carpal bones, metacarpal bones or phalanges. There is no fluctuance proximal Howard's tubercle. There is no erythema or warmth of the wrist or forearm. Sensation is intact. Capillary refill is normal. Neuro oriented x3, CN's II-XII intact bilaterally, no focal motor deficits and no sensory deficits noted Sensorium / Orientation: alert Psych mental status grossly normal Skin General Skin Exam: Negative for petechiae Lesions: no lesions Rashes: no rashes Trauma: no lacerations or abrasions MDM MDM MDM Narrative Medical decision making narrative: Will obtain x-ray to assess if there is any evidence of fracture otherwise this is soft tissue/musculoskeletal pain. Patient was treated with NSAIDs. She reports nosebleed with aspirin. This is not an allergy. Radiography Chest X-Ray - ED: 2 View, Read by ED Physician and Normal (There is no evidence of fracture, subluxation dislocation. There is no soft tissue swelling. There is no foreign body. This was entirely reviewed interpreted by me.) Discharge Plan Triage Chief Complaint: Upper Extremity Injury ED Provider: Leonard Arias Dx/Rx/DC Orders Clinical Impression: Pain of right forearm, Obesity (BMI 30.0-34.9), History of hypertension, Tobacco use Instructions: ED Pain, Acute, Uncertain Cause Prescriptions: No Action amoxicillin-pot clavulanate 875-125 mg tablet 1 tab PO BID Qty: 20 0RF oxycodone-acetaminophen [Percocet] 5-325 mg tablet 1 tab PO Q8H PRN (Reason: pain) 3 Days Qty: 10 0RF Primary Care Provider: Care Physician,No Primary Referrals: Sugar Rodrigez MD [Med Staff - Supervisor [employer]] - 3-5 Days if not improving Activity Restrictions/Additional Instructions: 1. Apply ice 6-10 times a day 2. Take either Tylenol for pain or ibuprofen Disposition Disposition: Home, Self Care
--- NOTE | 2023-12-06 16:48 | RAD_ITS ---
INDICATION: Injury/Pain EXAMINATION/TECHNIQUE: X-RAY - RIGHT XR Forearm 2 Views 2 VIEWS COMPARISON: No relevant prior comparison study available FINDINGS: SOFT TISSUES: No soft tissue swelling or gas. No radiopaque foreign body. BONES/JOINTS: There is normal alignment of bony elements of the forearm/radius and ulna. Mild degenerative change noted. There is irregular configuration of the visualized elements of the 5th digit which may represent healed fracture of the proximal phalanx, no acute fractures identified in the visualized hand wrist or forearm. RAD/Forearm 2 Views IMPRESSION: 1. No evidence fracture, malalignment or focal bony or joint space abnormality. 2. Deformity of the visualized 5th digit, which may represent sequelae of healed fracture. Electronically Signed: Cj Poe MD at 17:33 EDT ,
[2023-12-06] MEDS: Naproxen 500 MG Tablet PO (16:54)
--- NOTE | 2023-12-06 17:14 | ED.RN ---
The information for triage was provided by triage nurseKavita on paper d/t downtime. The original triage time was 1446 on 12/06/2023.
--- NOTE | 2023-12-06 17:37 | EDS_ITS ---
<Statement entered by Leonard Arias MD - 12/10/23 16:32> H&P was documented on date of service and is in the provider's note Q.
[2023-12-06 17:40] VITALS: BP 130/75; PULSE 77; RESP 18; TEMP 36.6; O2SAT 98
== END 2023-12-06 17:42 | disposition home or self-care (01) ==
PROVIDERS: Emergency Provider Emergency Medicine; Visit Provider Emergency Medicine
DX: M79.631 Pain in right forearm (principal); E66.9 Obesity, unspecified; F17.210 Nicotine dependence, cigarettes, uncomplicated; I10 Essential (primary) hypertension; F17.290 Nicotine dependence, other tobacco product, uncomplicated
CPT/HCPCS: 73090; 99282

== ENCOUNTER 2024-03-30 21:29 | Emergency (ER) | payer MEDICAID, SELFPAY ==
[2024-03-30 21:30] VITALS: BP 147/81; PULSE 77; RESP 16; TEMP 36.7; O2SAT 98; BMI 31.0
--- NOTE | 2024-03-30 22:04 | RAD_ITS ---
EXAM: XR LEFT ANKLE COMPLETE, 3 OR MORE VIEWS CLINICAL INDICATION: pain TECHNIQUE: Frontal, lateral and oblique views of the left ankle. COMPARISON: Foot on the same date. FINDINGS: BONES/JOINTS: Dorsal midfoot and calcaneal spurring. No acute fracture. No subluxation. Normal alignment. Preservation of the joint space. No sclerotic or destructive changes observed. SOFT TISSUES: Soft tissue swelling. No radiopaque foreign body. RAD/Ankle min 3 Views IMPRESSION: No acute osseous abnormalities. Degenerative change. Soft tissue swelling. Electronically Signed: Boogie Jacobo DO at 23:26 EDT ,
--- NOTE | 2024-03-30 22:04 | RAD_ITS ---
EXAM: XR RIGHT WRIST COMPLETE, 3 OR MORE VIEWS CLINICAL INDICATION: pain TECHNIQUE: Frontal, lateral and oblique views of the right wrist. COMPARISON: Right forearm, 12/06/2023 and right hand, 04/29/2022 FINDINGS: BONES/JOINTS: Degenerative changes at the basal joint of the thumb are again identified similar to the prior examination. Radiocarpal joint arthrosis is also similar to the prior examination. No acute fracture or dislocation is identified. No sclerotic or destructive changes observed. SOFT TISSUES: Mild soft tissue swelling. No radiopaque foreign body. RAD/Wrist min 3 Views IMPRESSION: Mild soft tissue swelling. Degenerative changes similar to the prior examination. Electronically Signed: Boogie Jacobo DO at 23:19 EDT ,
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
--- NOTE | 2024-03-30 22:15 | RAD_ITS ---
EXAM: XR LEFT FOOT COMPLETE, 3 OR MORE VIEWS CLINICAL INDICATION: pain TECHNIQUE: Frontal, lateral and oblique views of the left foot. COMPARISON: Ankle on the same date. Left foot, 05/27/2011. FINDINGS: BONES/JOINTS: Progression of dorsal midfoot spurring. Calcaneal spurs are similar to the prior examination. Additional diffuse midfoot arthrosis. No sclerotic or destructive changes observed. No definite acute fracture or dislocation. SOFT TISSUES: Mild soft tissue swelling mostly dorsally. No radiopaque foreign body. RAD/Foot min 3 Views IMPRESSION: 1. No definite acute fracture or dislocation. Soft tissue swelling. 2. Progression of dorsal midfoot spurring. Electronically Signed: Boogie Jacobo DO at 23:25 EDT ,
[2024-03-30] MEDS: oxyCODONE 5 MG Tablet PO (22:30)
== END 2024-03-31 00:02 | disposition home or self-care (01) ==
PROVIDERS: Emergency Provider Emergency Medicine; Visit Provider Emergency Medicine
DX: S63.501A Unspecified sprain of right wrist, initial encounter (principal); I10 Essential (primary) hypertension; S93.402A Sprain of unspecified ligament of left ankle, initial encounter; S90.32XA Contusion of left foot, initial encounter; F17.210 Nicotine dependence, cigarettes, uncomplicated; F32.A Depression, unspecified; F17.290 Nicotine dependence, other tobacco product, uncomplicated; V18.0XXA Pedal cycle driver injured in noncollision transport accident in nontraffic accident, initial encounter
CPT/HCPCS: 73110; 73610; 73630; 99283

== ENCOUNTER 2024-05-29 15:10 | Emergency (ER) | payer MEDICAID, SELFPAY ==
[2024-05-29 15:11] VITALS: BP 125/73; PULSE 88; RESP 16; TEMP 36.6; O2SAT 98; BMI 32.4
== END 2024-05-29 16:30 | disposition left against medical advice (07) ==
LOC: ED 16:31
DX: Z53.21 Procedure and treatment not carried out due to patient leaving prior to being seen by health care provider (principal)

== ENCOUNTER 2024-11-20 13:49 | Emergency (ER) | payer SELFPAY ==
[2024-11-20 13:50] VITALS: BP 147/72; PULSE 81; RESP 16; TEMP 36.9; O2SAT 99; BMI 31.6
[2024-11-20] MEDS: Ibuprofen 600 MG Tablet PO (14:31)
--- NOTE | 2024-11-20 14:35 | EDS_ITS ---
HPI History of Present Illness Chief Complaint: Upper Extremity Injury Informant: patient Narrative Narrative: Patient is a [id number] female with history of prior carpal tunnel surgery of the right wrist, left rotator cuff surgery and tobacco use presenting with worsening right knee and right shoulder pain. She states both pains been going on for months. She does tell me that week or so ago she did slip on ice and fall on her right shoulder. She is having increased right shoulder pain since. She has been intermittently taking ibuprofen 800 mg as well as Tylenol 500 mg with some help of her symptoms. She states that she works at [employer] and does not feel that she can really work because of her symptoms. Has remotely had physical therapy and seeing orthopedics through [facility] but currently does not have a primary care doctor or orthopedist. She questions to me if she needs partial disability. She notes her knee had increased swelling this morning when she first got out of bed. She states with this for started she felt a pop behind her right knee and has been having issues with it since. She told triage that this was 7 months ago. She initially was going to come into the ER for her knee today with concern having increasing right shoulder pain which is her main complaint at this time. She notes her swelling is improved. She has been wearing an [id number]-[id number] knee brace and icing. She is on anything for pain today. Denies any fever or night sweats. Denies any associated numbness or tingling. For her right hand notes that she does also get pain in her right thenar eminence and shooting pain up her forearm. 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 [facility] Medical History Amputation of right little finger Wears glasses Smoker Shortness of breath on exertion Home Medications ?Medication ?Instructions ?Recorded ?Last Taken ?Type amoxicillin 875 mg-potassium 1 tab PO BID #20 tabs Unknown Rx clavulanate 125 mg tablet oxycodone-acetaminophen 5 mg-325 1 tab PO Q8H PRN pain 3 days #10 03/19/23 Unknown Rx mg tablet (Percocet) tabs oxycodone-acetaminophen 5 mg-325 1 tab PO Q6H PRN pain 3 days #12 03/30/24 Unknown Rx mg tablet (Percocet) tabs meloxicam 15 mg tablet 15 mg PO DAILY #14 tabs 10/28 02/17 Unknown Rx Allergy/AdvReac Type Severity Reaction Status Date / Time aspirin AdvReac NOSE BLEED Verified 11/20/24 13:51 Surgical History Hx of rotator cuff surgery History of carpal tunnel surgery of right wrist Hx of tubal ligation Social History Smoking Status: Current every day smoker tobacco type: cigarettes and e- cigarettes substance use type: does not use ROS ROS ED Constitutional Constitutional ED: Denies chills or fever(s) Respiratory/Chest Respiratory/Chest: Denies cough or dyspnea Gastrointestinal Gastrointestinal: Denies nausea or vomiting Musculoskeletal Musculoskeletal: Reports neck pain and other Details: Right shoulder pain, right wrist/hand pain, right knee ; Denies back pain or myalgias Integumentary Denies rash Neurologic Neurologic: Denies headache(s), paresthesias or weakness Hematologic/Lymphatic Hematologic/Lymphatic: Denies easy bleeding or easy bruising EXAM Physical Exam Const Vital Signs: 11/20/24 13:50 Temperature 98.4 F Temperature Source Oral Pulse Rate 81 Respiratory Rate 16 Blood Pressure 147/72 H Blood Pressure Mean 97 Pulse Ox 99 Oxygen Delivery Method Room Air Positive well nourished and well developed General Appearance ED: well developed and NAD HEENT Reports moist mucous membranes HEENT Narrative: dental caries Resp normal respiratory effort and clear to auscultation bilaterally Cardio regular rate and regular rhythm Cardio Narrative: Blowing murmur present?patient has knowledge of this. 2+ DP and radial pulses present Extremity normal to inspection Extremity Narrative: No obvious deformity. Mild tenderness of the right cervical paraspinal into the trapezius. Right upper extremity?no pain or palpation of the clavicle. She has pain in palpation of anterior aspect of the right shoulder. Increased range of motion with passive range of motion compared to active range of motion. Continues to cannot get to 90 degrees secondary to pain with flexion as well as abduction. No pain or effusion of the right elbow. Compartments are soft of the arm. No pain with palpation over the right carpal tunnel. Normal range of motion of the fingers. Right knee?normal extensor mechanism. No obvious effusion present. Pain with attempts at valgus and varus stress as well as drawer test and patient does not tolerate these test. Not able to appreciate any obvious laxity but the test are limited secondary to patient's tolerance. No tenderness to palpation over the fibular head. Normal ankle and foot. No pain with range of motion of the right hip. Neuro oriented x3, moves all extremities and no focal motor deficits Sensorium / Orientation: alert Psych mental status grossly normal Skin Lesions: no lesions Rashes: no rashes MDM MDM MDM Narrative Medical decision making narrative: Patient's evaluated for increased right knee and right shoulder pain. Does report all fall a week or 2 ago onto her right shoulder. Will obtain x-ray of the right shoulder and knee looking for fracture, arthritic changes, or any large effusion. Low suspicion for dislocation. Patient given dose of Motrin. Will give patient referral for primary care as well as orthopedist, prescription for meloxicam. She is next 2 days off. Counseled on the importance of RICE therapy. Discussed that she needs to establish with Ortho and primary care if she is interested in any type of disability. X-ray viewed by myself as well as radiology does not show any acute fracture or dislocation. Radiology does note a small effusion of the right knee. On repeat evaluation patient is resting comfortably and sleeping. I reviewed the patient's x-ray results. Patient discharged home. Given return precautions. Is given a sling for her shoulder pain especially as she did have an acute fall. Radiography Diagnostic Testing: Diagnostic Data Knee X-Ray 11/20/24 14:53 IMPRESSION: Minimal joint effusion. No fracture seen. Reading Location: [id number] Shoulder X-Ray 11/20/24 14:53 IMPRESSION: No acute abnormality is seen. Reading Location: [id number] Discharge Plan Triage Chief Complaint: Upper Extremity Injury Other Complaint: Lower Extremity Injury ED Provider: Ashlyn Steiner Dx/Rx/DC Orders Clinical Impression: Chronic pain of right knee, Acute pain of right shoulder Instructions: ED Knee Effusion, ED Shoulder Pain, Uncertain Cause Prescriptions: New meloxicam 15 mg tablet 15 mg PO DAILY Qty: 14 0RF No Action amoxicillin-pot clavulanate 875-125 mg tablet 1 tab PO BID Qty: 20 0RF oxycodone-acetaminophen [Percocet] 5-325 mg tablet 1 tab PO Q8H PRN (Reason: pain) 3 Days Qty: 10 0RF oxycodone-acetaminophen [Percocet] 5-325 mg tablet 1 tab PO Q6H PRN (Reason: pain) 3 Days Qty: 12 0RF Primary Care Provider: Care Physician,No Primary Referrals: Joey Pena MD [Med Staff - Active Staff] - Tg Moreno [Non-Staff] - Care Physician,No Primary [Primary Care Provider] - Activity Restrictions/Additional Instructions: Please follow-up with orthopedics as well as family medicine. You may give referral for both today. You had been given a prescription for a daily anti- inflammatory pain medication called meloxicam. Please do not take other NSAIDs such as ibuprofen or naproxen with this. You may take Tylenol with it as needed. Print Language: Citizen Of [place] Disposition Disposition: Home, Self Care
--- NOTE | 2024-11-20 14:53 | RAD_ITS ---
PROCEDURE: SHOULDER MIN 2 VIEWS REASON FOR EXAM: Right shoulder pain following a fall. TECHNIQUE: Four views of the right shoulder were obtained. COMPARISON: None. FINDINGS: RIGHT SHOULDER: No fracture. No suspicious bone lesion. Normal alignment of the acromioclavicular and glenohumeral joints. Soft tissues are unremarkable. RAD/Shoulder min 2 Views IMPRESSION: No acute abnormality is seen. Reading Location: [facility]
--- NOTE | 2024-11-20 14:53 | RAD_ITS ---
PROCEDURE: KNEE 1 OR 2 VIEWS REASON FOR EXAM: Pain following a fall. TECHNIQUE: Right view(s) of the right knee COMPARISON: None. FINDINGS: No fracture. No suspicious bone lesion. Normal alignment. Minimal joint effusion. Soft tissues are unremarkable. RAD/Knee 1 or 2 Views IMPRESSION: Minimal joint effusion. No fracture seen. Reading Location: [id number]
[2024-11-20 16:04] VITALS: BP 104/56; PULSE 88; RESP 16; TEMP 36.6; O2SAT 97
== END 2024-11-20 17:09 | disposition home or self-care (01) ==
PROVIDERS: Emergency Provider Emergency Medicine; Visit Provider Emergency Medicine
DX: M25.511 Pain in right shoulder (principal); M25.561 Pain in right knee; M25.531 Pain in right wrist; M79.641 Pain in right hand; W00.0XXA Fall on same level due to ice and snow, initial encounter; G89.29 Other chronic pain; R01.1 Cardiac murmur, unspecified; F17.210 Nicotine dependence, cigarettes, uncomplicated; F17.290 Nicotine dependence, other tobacco product, uncomplicated; Z89.021 Acquired absence of right finger(s)
CPT/HCPCS: 73030; 73560; 99284

== ENCOUNTER 2024-12-17 07:23 | Emergency (ER) | payer SELFPAY ==
[2024-12-17 07:24] VITALS: BP 156/66; PULSE 78; RESP 16; TEMP 36.6; O2SAT 100; BMI 31.8
[2024-12-17 07:28] VITALS: BP 156/66; PULSE 78; RESP 16; TEMP 36.6; O2SAT 100
--- NOTE | 2024-12-17 07:42 | EX.ED.DYSGE1 ---
HPI History of Present Illness Chief Complaint: Cellulitis Informant: patient Narrative Narrative: 59-year-old female presenting to the emergency room with right facial redness and swelling. Patient states that she woke on Tuesday morning and noticed that the right side of her face infraorbitally and down towards the corner of her mouth was erythematous warm and slightly swollen. She has tried Benadryl. She denies any new soaps lotions detergents make-up etc. She has been using warm wet compresses. The patient states that it she has not had any fever. No history of MRSA or abscesses. She denies any ocular symptoms such as diplopia blurry vision conjunctival injection. [facility] Medical History Amputation of right little finger Wears glasses Smoker Shortness of breath on exertion Home Medications ?Medication ?Instructions ?Recorded ?Last Taken ?Type amoxicillin 875 mg-potassium 1 tab PO BID #20 tabs 06/15/22 Unknown Rx clavulanate 125 mg tablet oxycodone-acetaminophen 5 mg-325 1 tab PO Q8H PRN pain 3 days #10 03/19/23 Unknown Rx mg tablet (Percocet) tabs oxycodone-acetaminophen 5 mg-325 1 tab PO Q6H PRN pain 3 days #12 03/30/24 Unknown Rx mg tablet (Percocet) tabs meloxicam 15 mg tablet 15 mg PO DAILY #14 tabs 11/20/24 Unknown Rx penicillin V potassium 250 mg 500 mg (2 x 250 mg) PO 4X/DAY #40 12/17/24 Unknown Rx tablet tabs sulfamethoxazole 800 1 tab PO BID #20 TABLETS 12/17/24 Unknown Rx mg-trimethoprim 160 mg tablet Allergy/AdvReac Type Severity Reaction Status Date / Time aspirin AdvReac NOSE BLEED Verified 12/17/24 07:24 Surgical History Hx of rotator cuff surgery History of carpal tunnel surgery of right wrist Hx of tubal ligation Social History Smoking Status: Current every day smoker tobacco type: cigarettes and e-cigarettes substance use type: does not use ROS ROS ED Constitutional Constitutional ED: Denies chills, fever(s) or weight loss Eyes Eyes: Denies change in vision or diplopia ENT ENT ED: Denies ear pain, rhinorrhea or sore throat Cardiovascular Cardiovascular: Denies chest pain, orthopnea, palpitations or racing heartbeat Respiratory/Chest Respiratory/Chest: Denies cough, dyspnea or orthopnea Gastrointestinal Gastrointestinal: Denies abdominal pain, diarrhea, nausea or vomiting Genitourinary Genitourinary ED: Denies dysuria, hematuria or urinary frequency Musculoskeletal Musculoskeletal: Denies arthralgias or myalgias Integumentary Reports other Details: See history of present ; Denies abscess or rash Neurologic Neurologic: Denies headache(s) or weakness Psychiatric Psychiatric: Denies anxiety, depression, suicidal ideation or suicidal thoughts Endocrine Endocrinology: Denies polydipsia, polyphagia or polyuria Allergic/Immunologic Allergic/Immunologic ED: Denies mouth swelling, tongue swelling or urticaria EXAM Physical Exam Const Vital Signs: 12/17/24 07:24 12/17/24 07:28 Temperature 97.9 F 97.9 F Temperature Source Oral Oral Pulse Rate 78 78 Respiratory Rate 16 16 Blood Pressure 156/66 H 156/66 H Blood Pressure Mean 96 96 Pulse Ox 100 100 Oxygen Delivery Method Room Air Room Air Positive well nourished and well developed General Appearance ED: well developed HEENT Reports normocephalic, head/scalp atraumatic and moist mucous membranes HEENT Narrative: The right maxillary sinus region shows a sharply demarcated area of redness increased warmth and slight edema. Eye exam appears normal. There is no honey crusted drainage. Does not cross to the left. Is infraorbital and over the medial aspect of the eye but not over the superior or lateral aspect. Extends down to the corner of the lips. There is no trismus. No obvious dental abscess. Ear exam is normal Eyes PERRL and EOMs intact bilaterally Neck no lymphadenopathy, supple and no JVD Resp normal respiratory effort and clear to auscultation bilaterally Cardio regular rate and regular rhythm Rate: other Other Details: 2 out of 6 systolic murmur GI normal to inspection, nondistended, normoactive bowel sounds and non-tender Palpation: soft Back/Spine no CVA tenderness and normal ROM Extremity normal to inspection General Extremety ED: Negative for edema General Extremity: Negative for edema Neuro oriented x3 and CN's II-XII intact bilaterally Sensorium / Orientation: alert Motor Exam: strength 5/5 throughout Psych mental status grossly normal Mood & Affect: Negative for depressed or tearful Skin no rashes or lesions noted and no wounds MDM MDM MDM Narrative Medical decision making narrative: Differential diagnosis includes erysipelas/cellulitis abscess dental infection sinus infection orbital cellulitis periorbital cellulitis shingles allergic reaction Patient was started on Pen-Vee K. We talked about MRSA coverage and using shared decision making we will also place her on Bactrim. Given that she does not have any ocular symptoms and has not been on antibiotics is not febrile I do not believe we need CT imaging at this time. Lastly the patient follow-up with dermatology if not improving return if worsening. History & Record Review Discussion w/independent historian: Patient Discharge Plan Triage Chief Complaint: Cellulitis ED Provider: Harshad Mcgowan Dx/Rx/DC Orders Clinical Impression: Erysipelas Instructions: ED Cellulitis Prescriptions: New penicillin V potassium 250 mg tablet 500 mg PO 4X/DAY Qty: 40 0RF sulfamethoxazole-trimethoprim 800-160 mg tablet 1 tab PO BID Qty: 20 0RF No Action amoxicillin-pot clavulanate 875-125 mg tablet 1 tab PO BID Qty: 20 0RF oxycodone-acetaminophen [Percocet] 5-325 mg tablet 1 tab PO Q8H PRN (Reason: pain) 3 Days Qty: 10 0RF oxycodone-acetaminophen [Percocet] 5-325 mg tablet 1 tab PO Q6H PRN (Reason: pain) 3 Days Qty: 12 0RF meloxicam 15 mg tablet 15 mg PO DAILY Qty: 14 0RF Primary Care Provider: Care Physician,No Primary Referrals: Lencho Monzon MD [Med Staff - Machine Learning Intern] - 3-5 Days if not improving Care Physician,No Primary [Primary Care Provider] - Print Language: Mauritanian Disposition Disposition: Home, Self Care Discharge Date/Time: 12/17/24 07:59
== END 2024-12-17 07:59 | disposition home or self-care (01) ==
LOC: ED 07:47
PROVIDERS: Emergency Provider Emergency Medicine; Visit Provider Emergency Medicine
DX: A46 Erysipelas (principal); F17.210 Nicotine dependence, cigarettes, uncomplicated; F17.290 Nicotine dependence, other tobacco product, uncomplicated; Z89.021 Acquired absence of right finger(s)
CPT/HCPCS: 99282

== ENCOUNTER 2025-02-11 22:46 | Emergency (ER) | payer MEDICAID, SELFPAY ==
[2025-02-11 22:47] VITALS: BP 146/79; PULSE 84; RESP 18; TEMP 36.6; O2SAT 99; BMI 32.3
--- NOTE | 2025-02-12 00:05 | EX.ED.DYSGE1 ---
HPI History of Present Illness Chief Complaint: Lower Extremity Injury Informant: patient Narrative Narrative: Patient is a 59-year-old female with past medical history of hypertension and tobacco use. She states that she was outside gardening today and when she came in she noticed a area of swelling to the anterior aspect of her left david. She states that there was no trauma. She denies any history of bleeding disorder or blood thinner use. She states it did not appear red or pruritic. She states that in the last hour or so after she had noticed the swelling and has spontaneously improved. She states she was concerned for potential blood clot and therefore comes in for evaluation. Of note the patient denies any recent surgery travel history of DVT/PE or hormone use [facility] Medical History Amputation of right little finger Wears glasses Smoker Shortness of breath on exertion Home Medications ?Medication ?Instructions ?Recorded ?Last Taken ?Type amoxicillin 875 mg-potassium 1 tab PO BID #20 tabs 06/15/22 Unknown Rx clavulanate 125 mg tablet oxycodone-acetaminophen 5 mg-325 1 tab PO Q8H PRN pain 3 days #10 03/19/23 Unknown Rx mg tablet (Percocet) tabs oxycodone-acetaminophen 5 mg-325 1 tab PO Q6H PRN pain 3 days #12 03/30/24 Unknown Rx mg tablet (Percocet) tabs meloxicam 15 mg tablet 15 mg PO DAILY #14 tabs 11/20/24 Unknown Rx penicillin V potassium 250 mg 500 mg (2 x 250 mg) PO 4X/DAY #40 12/17/24 Unknown Rx tablet tabs sulfamethoxazole 800 1 tab PO BID #20 TABLETS 12/17/24 Unknown Rx mg-trimethoprim 160 mg tablet Allergy/AdvReac Type Severity Reaction Status Date / Time aspirin AdvReac NOSE BLEED Verified 02/11/25 22:46 Surgical History Hx of rotator cuff surgery History of carpal tunnel surgery of right wrist Hx of tubal ligation Social History Smoking Status: Current every day smoker tobacco type: cigarettes and e-cigarettes substance use type: does not use ROS ROS ED Constitutional Constitutional ED: Denies chills or fever(s) ENT ENT ED: Denies sore throat Cardiovascular Cardiovascular: Denies chest pain, palpitations or racing heartbeat Respiratory/Chest Respiratory/Chest: Denies cough or dyspnea Gastrointestinal Gastrointestinal: Denies abdominal pain, diarrhea, nausea or vomiting Genitourinary Genitourinary ED: Denies dysuria Musculoskeletal Musculoskeletal: Denies back pain, myalgias or neck pain Integumentary Reports other Details: Positive swelling left anterior leg Neurologic Neurologic: Denies headache(s) Hematologic/Lymphatic Hematologic/Lymphatic: Denies easy bleeding or easy bruising Allergic/Immunologic Allergic/Immunologic ED: Denies mouth swelling, tongue swelling or urticaria EXAM Physical Exam Const Vital Signs: 02/11/25 22:47 Temperature 97.8 F Temperature Source Temporal Pulse Rate 84 Respiratory Rate 18 Blood Pressure 146/79 H Blood Pressure Mean 101 Pulse Ox 99 Oxygen Delivery Method Room Air Positive well nourished and well developed General Appearance ED: well developed; Negative for pallor HEENT HEENT Narrative: Normocephalic atraumatic Eyes PERRL and EOMs intact bilaterally Neck supple Resp normal respiratory effort Resp Narrative: Breath sounds slight diminished throughout with faint wheezing rhonchi in the bilateral bases consistent with history of smoking However no signs of respiratory distress Cardio regular rate and regular rhythm Extremity Extremity Narrative: There is a small area of soft tissue swelling along the middle aspect of the proximal third of the left anterior david. There is faint ecchymosis at the site and there are surrounding varicose veins. No overlying erythema or warmth. No tenderness to palpation. No obvious bony deformity or joint effusion. Negative Homans' sign bilaterally. Neuro oriented x3, CN's II-XII intact bilaterally and no sensory deficits noted Sensorium / Orientation: alert Motor Exam: strength 5/5 throughout Psych mental status grossly normal Skin Skin Narrative: Mild area of soft tissue swelling/ecchymosis to the anterior aspect of the left david as documented above General Skin Exam: Negative for jaundice or pallor MDM MDM MDM Narrative Medical decision making narrative: Patient presented to the ER overall stable vitals. She denied any trauma other than performing some gardening before onset of symptoms. She states the area was much more swollen initially but in the last hour or so without any treatment has begun to resolve. She denies any recent travel surgery hormone use or history of DVT/PE. She denies any trauma to suggest bony injury. There is no erythema or warmth to suggest cellulitis or abscess. Based on the fact she has varicose veins in this region and reports she was gardening there is most likely compression of the vascular system at this site. This led to a buildup of blood/hematoma to the anterior aspect of the david. As she has now been up and moving there has been spontaneous improvement of the swelling/discoloration I feel that there is no need for further workup as concern for cellulitis/abscess or thrombus or bony injury is extremely low and patient can just use symptomatic care with compression and Andrzej wrap to prevent reoccurrence. Plan of care was discussed with patient she is agreeable to it and therefore will be discharged at this time History & Record Review Discussion w/independent historian: Patient Discharge Plan Triage Chief Complaint: Lower Extremity Injury ED Provider: Venancio Ragsdale Dx/Rx/DC Orders Clinical Impression: Varicose veins of calf, Hematoma, Hypertension, Tobacco use Instructions: Spider and Varicose Veins, ED Hematoma Prescriptions: No Action amoxicillin-pot clavulanate 875-125 mg tablet 1 tab PO BID Qty: 20 0RF oxycodone-acetaminophen [Percocet] 5-325 mg tablet 1 tab PO Q8H PRN (Reason: pain) 3 Days Qty: 10 0RF oxycodone-acetaminophen [Percocet] 5-325 mg tablet 1 tab PO Q6H PRN (Reason: pain) 3 Days Qty: 12 0RF meloxicam 15 mg tablet 15 mg PO DAILY Qty: 14 0RF penicillin V potassium 250 mg tablet 500 mg PO 4X/DAY Qty: 40 0RF sulfamethoxazole-trimethoprim 800-160 mg tablet 1 tab PO BID Qty: 20 0RF Primary Care Provider: Care Physician,No Primary Referrals: Care Physician,No Primary [Primary Care Provider] - Activity Restrictions/Additional Instructions: Your physical exam and history indicate that your symptoms are most likely related to compression of your varicose veins leading to a collection of blood/hematoma. Please wear an Andrzej wrap to prevent reoccurrence of symptoms. Clinically this does not fit any type of DVT/blood clot or infectious process. Return to the ER should you have any further concerns or worsening of symptoms. Print Language: Ethiopian Disposition Disposition: Home, Self Care Discharge Date/Time: 02/12/25 00:18
== END 2025-02-12 00:18 | disposition home or self-care (01) ==
PROVIDERS: Emergency Provider Emergency Medicine; Visit Provider Emergency Medicine
DX: I83.892 Varicose veins of left lower extremity with other complications (principal); I10 Essential (primary) hypertension; F17.210 Nicotine dependence, cigarettes, uncomplicated; F17.290 Nicotine dependence, other tobacco product, uncomplicated
CPT/HCPCS: 99283

== ENCOUNTER → 2025-08-12 | Outpatient (CLI) | payer MEDICAID, SELFPAY ==
--- NOTE | 2025-08-12 09:58 | MRI_ITS ---
PROCEDURE: UPPER EXT JOINT ONLY(ROUTINE) 08/12/2025 REASON FOR EXAM: PAIN AFTER A FALL, HARD TO LIFT, RULE OUT CUFF TEA TECHNIQUE: Procedure Code: MRIUEJ Modality: MR Procedure: UPPER EXT JOINT ONLY(ROUTINE) Multiplanar and multisequence images were obtained without IV contrast administration. COMPARISON: None FINDINGS: Bone Marrow: There is no bony contusion or occult fracture. 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 There is a full-thickness, full width tear of the supraspinatus footplate, with 2 cm of retraction. There is a full- thickness, near full width tear of the distal infraspinatus without retraction. The subscapularis shows severe tendinopathy without full-thickness tear or retraction. The teres minor appears intact. AC joint: There is moderate AC joint hypertrophy with a trace effusion. There is no evidence of AC joint separation. There is a type 2 acromion. Biceps tendon: There is severe tendinopathy of the intra-articular portion of the biceps tendon with intact anchors. Labrum: There is a tear of the labrum from the 12-2 o'clock position. Effusion: There is a moderate effusion which extends in the subacromial subdeltoid bursa. Cartilage: There is mild chondromalacia at the glenohumeral articulation. 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 There is a full-thickness, full width tear of the supraspinatus footplate, with 2 cm of retraction. There is a full-thickness, near full width tear of the distal infraspinatus wit hout retraction. The subscapularis shows severe tendinopathy without full-thickness tear or retr action. There is moderate AC joint hypertrophy with a trace effusion. There is no evidence of AC joint separation.There is severe tendinopathy of the intra-articular portion of the biceps tendon with intact anchors. There is a tear of the labrum from the 12-2 o'clock position. There is a moderate effusion which extends in the subacromial subdeltoid bursa. Reading [facility]
== END | disposition home or self-care (01) ==
PROVIDERS: Referring Provider Orthopaedic Surgery Sports Medicine; Visit Provider Orthopaedic Surgery Sports Medicine
DX: M25.511 Pain in right shoulder (principal)
CPT/HCPCS: 73221

== ENCOUNTER 2025-09-11 07:37 | Emergency (ER) | payer MEDICAID, SELFPAY ==
[2025-09-11 07:37] VITALS: BP 157/112; PULSE 116; RESP 16; TEMP 36.4; O2SAT 98
[2025-09-11 07:43] VITALS: BMI 34.4
--- NOTE | 2025-09-11 08:45 | CT_ITS ---
PROCEDURE: ABDOMEN/PELVIS W IV CONT ONLY 09/11/2025 REASON FOR EXAM: LEFT UPPER QUADRANT ABDOMINAL PAIN/LUMP TECHNIQUE: Procedure Code: [id number] Modality: CT Procedure: ABDOMEN/PELVIS W IV CONT ONLY Coronal and Sagittal reconstruction series were generated. CONTRAST: Isovue 370 VOLUME: 100 mL One or more dose reduction techniques were used (e.g., Automated exposure control, adjustment of the mA and/or kV according to patient size, use of iterative reconstruction technique. RADIATION DOSE SUMMARY: CTDlvol: 19.95+ 23.58 mGy DLP: 1279.41 mGycm COMPARISON: 01/11/2021 ; note that images only are available for review, the report is not available at the time of the dictation. FINDINGS: Lung bases: Aortic annular calcification minimal likely atelectasis/scarring. Accessory fissure RIGHT lower lobe, normal variant. Liver: Unremarkable. Spleen: Unremarkable. Gallbladder: Unremarkable. Pancreas: Unremarkable. Adrenals: Unremarkable. 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 Bowel: Unremarkable. Normal caliber appendix. Lymph nodes: Unremarkable. Vasculature: Trace atherosclerosis. Peritoneum: Unremarkable. Bladder: Unremarkable. Reproductive Organs: Unremarkable. Body Wall: Unremarkable. Bones: Degenerative findings. Included RIGHT upper extremity not well evaluated due to partial imaging, large [id number], and oblique positioning. CT/Abdomen/Pelvis W IV Cont ONLY IMPRESSION: 1. No acute findings. 2. Additional description as above. Reading Location: [id number]
--- NOTE | 2025-09-11 08:48 | EX.ED.DYSGE1 ---
HPI History of Present Illness Chief Complaint: Abd Pain Narrative Narrative: Chief complaint and HPI: 60-year-old female with past medical history of HTN, depression, right rotator cuff tear presents for evaluation of intermittent left upper quadrant lump/pain. Patient states several days ago she developed a lump/pain in her left upper quadrant. She states she was seen by urgent care in which they felt it could be a possible hernia. Referred her to a surgeon. She states she received a call today that the surgeon does not take her insurance therefore she presented to the emergency department. She denies any fever, chills, shortness of breath, chest pain, nausea, vomiting, dysuria, diarrhea, constipation. Currently does not feel the lump. Review of systems: See HPI Medications: As listed on the chart Allergies: As listed on the chart PFSH: Per chart Vital signs: As listed on the chart. Reviewed. Physical exam: Gen: A&O x3, NAD Head: Normocephalic, atraumatic Eyes: No sclera icterus, conjunctiva clear ENT: Moist mucous membranes CV: RRR, no murmurs, no peripheral edema Resp: Lungs CTA BL, no w/r/c GI: Abd soft, non-distended, non-tender, no lump or mass felt, no r/r/g Musc: Full ROM, no deformity Skin: Warm, dry Neuro: Alert, oriented, grossly intact, sensation intact Psych: Cooperative, appropriate mood and affect [facility] Medical History Superior labrum [id number] (SLAP) tear of right shoulder Right rotator cuff tear Right shoulder pain Amputation of right little finger Wears glasses Smoker Shortness of breath on exertion Home Medications ?Medication ?Instructions ?Recorded ?Last Taken ?Type NK 07/19/25 Unknown History Allergy/AdvReac Type Severity Reaction Status Date / Time aspirin AdvReac NOSE BLEED Verified 09/11/25 07:39 Family History no significant family his Surgical History Hx of rotator cuff surgery History of carpal tunnel surgery of right wrist Hx of tubal ligation Social History Smoking Status: Current every day smoker tobacco type: cigarettes and e-cigarettes substance use type: does not use EXAM Physical Exam Const Vital Signs: 09/11/25 07:37 09/11/25 09:50 Temperature 97.6 F L Temperature Source Temporal Pulse Rate 116 H 89 Respiratory Rate 16 Blood Pressure 157/112 H 119/90 H Blood Pressure Mean 127 99 Pulse Ox 98 Oxygen Delivery Method Room Air MDM MDM MDM Narrative Medical decision making narrative: 60-year-old female with past medical history of HTN, depression, right rotator cuff tear presents for evaluation of intermittent left upper quadrant lump/pain. Patient states several days ago she developed a lump/pain in her left upper quadrant. She states she was seen by urgent care in which they felt it could be a possible hernia. Referred her to a surgeon. She states she received a call today that the surgeon does not take her insurance therefore she presented to the emergency department. Differential diagnosis includes but is not limited to hernia, splenomegaly, pancreatitis, gastritis. Patient not endorsing any abdominal pain at this time therefore no pain medicine ordered. Laboratory workup ordered including CT abdomen pelvis. CBC without leukocytosis or anemia. Platelets unremarkable. CMP unremarkable. Lipase unremarkable. CT abdomen pelvis shows no acute intra-abdominal findings. She has chronic findings. At this point in time, no clear etiology to explain patient's intermittent left upper quadrant pain/lump. She needs to follow-up with primary care physician. Return back to ED if symptoms change or worsen. She confirmed understanding the plan. Patient discharged home. Impression: 1. Intermittent left upper quadrant abdominal pain/lump Lab Data Labs: Laboratory Results - last 24 hr 09/11/25 09:07 WBC 7.7 RBC 4.01 L Hgb 12.1 Hct 37.0 MCV 92.3 MCH 30.2 MCHC 32.7 RDW Std Deviation 43.8 RDW Coeff of Jose 13.1 Plt Count 244 MPV 8.8 Immature Gran % (Auto) 0.300 Neut % (Auto) 70.1 H Lymph % (Auto) 20.8 [place] % (Auto) 7.4 Eos % (Auto) 0.9 Baso % (Auto) 0.5 Absolute Neuts (auto) 5.4 Absolute Lymphs (auto) 1.61 Nucleated RBC % 0 Sodium 141 Potassium 3.8 Chloride 104 Carbon Dioxide 27.4 Anion Gap 9 BUN 12 Creatinine 0.73 Estim Creat Clear Calc 89.61 Est GFR (MDRD) Non-Af 94 BUN/Creatinine Ratio 16.1 Glucose 112 H Calcium 9.4 Total Bilirubin 0.26 AST 15 ALT 12 Alkaline Phosphatase 72 Total Protein 6.5 Albumin 4.1 Globulin 2.4 Albumin/Globulin Ratio 1.7 Lipase 21 Radiography Diagnostic Testing: Clinical Impression(s) from Imaging Studies Abdomen/Pelvis CT 09/11/25 08:45 IMPRESSION: 1. No acute findings. 2. Additional description as above. Reading Location: [id number] Discharge Plan Triage Chief Complaint: Abd Pain ED Provider: Dano Whitmore Dx/Rx/DC Orders Prescriptions: No Action NK Primary Care Provider: Care Physician,No Primary Referrals: Care Physician,No Primary [Primary Care Provider, Medical] Print Language: Citizen Of [place]
[2025-09-11] MEDS: 0.9% Normal Saline (1000mL) 1,000 ML 999 ML IV (09:13)
[2025-09-11 09:14] LABS: Hematocrit 37.0 % (37-47); Hemoglobin 12.1 g/dL (12.0-15.0); Immature Granulocytes Count 0.020 X10^3/uL (0.0-0.0); Mean Corp Hgb Conc 32.7 g/dL (32-36); Mean Corpuscular Volume 92.3 fL (81-99); Mean Platelet Vol. 8.8 fl (6.2-12.0); NRBC Flagged by Analyzer 0 % (0-5); Platelet Count 244 K/mm3 (150-450); RBC Distribution Width CV 13.1 % (11.6-14.6); RBC Distribution Width SD 43.8 fl (35.1-43.9); Red Blood Count 4.01 M/mm3 (4.2-5.4); White Blood Count 7.7 K/mm3 (4.4-11.0)
[2025-09-11 09:45] LABS: AST(SGOT) 15 U/L (<=31); Alanine Aminotransfer ALT/SGPT 12 U/L (<=34); Albumin, Serum 4.1 g/dL (3.4-4.8); Alkaline Phosphatase 72 U/L (35-104); Anion Gap 9 (5-15); BUN 12 mg/dL (4-19); BUN/Creat Ratio 16.1 RATIO (10-20); Calcium,Total 9.4 mg/dL (7.6-11.0); Carbon Dioxide 27.4 mmol/L (21.0-32.0); Chloride 104 mmol/L (98-108); Estimated Creatinine Clearance 89.61 ml/min (50-250); Globulin 2.4 g/dL (2.2-4.2); Glucose 112 mg/dL (70-99); Lipase 21 U/L (13-75); Potassium 3.8 mmol/L (3.3-5.1)
[2025-09-11 09:50] VITALS: BP 119/90; PULSE 89
[2025-09-11 10:16] VITALS: BP 112/74; PULSE 67; RESP 16; TEMP 36.8; O2SAT 100
== END 2025-09-11 10:17 | disposition home or self-care (01) ==
PROVIDERS: Emergency Provider Surgery; Visit Provider Surgery
DX: R10.12 Left upper quadrant pain (principal); F17.210 Nicotine dependence, cigarettes, uncomplicated; I10 Essential (primary) hypertension; Z98.51 Tubal ligation status
CPT/HCPCS: 74177; 80053; 83690; 85025; 96360; 99283; Q9967; A4216